=== PATIENT | female | born 1950 | race Caucasian/White ===

== ENCOUNTER 2017-09-24 02:42 | Outpatient (CLI) | payer MEDICARE, MEDICAID | END 2017-09-24 23:59 | disposition home or self-care (01) | LOC: DIABETIC 02:42 | PROVIDERS: ATTEND Internal Medicine | DX: E11.65 Type 2 diabetes mellitus with hyperglycemia (principal); I10 Essential (primary) hypertension | CPT/HCPCS: G0108 ==

== ENCOUNTER 2017-12-31 00:32 | Outpatient (CLI) | payer MEDICARE, MEDICAID | END 2017-12-31 23:59 | disposition home or self-care (01) | LOC: DIABETIC 00:32 | PROVIDERS: ATTEND Internal Medicine | DX: E11.65 Type 2 diabetes mellitus with hyperglycemia (principal); I10 Essential (primary) hypertension | CPT/HCPCS: G0108 ==

== ENCOUNTER 2018-04-11 04:25 | Outpatient (CLI) | payer MEDICARE, MEDICAID | END 2018-04-11 23:59 | disposition home or self-care (01) | LOC: DIABETIC 04:25 | PROVIDERS: ATTEND Internal Medicine | DX: E11.65 Type 2 diabetes mellitus with hyperglycemia (principal); E11.21 Type 2 diabetes mellitus with diabetic nephropathy; E11.40 Type 2 diabetes mellitus with diabetic neuropathy, unspecified; E11.319 Type 2 diabetes mellitus with unspecified diabetic retinopathy without macular edema; E11.43 Type 2 diabetes mellitus with diabetic autonomic (poly)neuropathy; K31.84 Gastroparesis; I10 Essential (primary) hypertension; I67.9 Cerebrovascular disease, unspecified; E78.5 Hyperlipidemia, unspecified; Z79.84 Long term (current) use of oral hypoglycemic drugs | CPT/HCPCS: G0108 ==

== ENCOUNTER 2018-07-16 01:43 | Outpatient (CLI) | payer MEDICARE, MEDICAID | END 2018-07-16 23:59 | disposition home or self-care (01) | LOC: DIABETIC 01:43 | PROVIDERS: ATTEND Internal Medicine | DX: E11.65 Type 2 diabetes mellitus with hyperglycemia (principal); E11.21 Type 2 diabetes mellitus with diabetic nephropathy; E11.40 Type 2 diabetes mellitus with diabetic neuropathy, unspecified; E11.319 Type 2 diabetes mellitus with unspecified diabetic retinopathy without macular edema; E11.43 Type 2 diabetes mellitus with diabetic autonomic (poly)neuropathy; K31.84 Gastroparesis; I10 Essential (primary) hypertension; I67.9 Cerebrovascular disease, unspecified; Z79.84 Long term (current) use of oral hypoglycemic drugs | CPT/HCPCS: G0108 ==

== ENCOUNTER 2018-10-16 03:20 | Outpatient (CLI) | payer MEDICARE, MEDICAID | END 2018-10-16 23:59 | disposition home or self-care (01) | LOC: DIABETIC 03:20 | PROVIDERS: ATTEND Internal Medicine | DX: E11.65 Type 2 diabetes mellitus with hyperglycemia (principal); Z79.84 Long term (current) use of oral hypoglycemic drugs; E11.40 Type 2 diabetes mellitus with diabetic neuropathy, unspecified; E11.21 Type 2 diabetes mellitus with diabetic nephropathy; E11.319 Type 2 diabetes mellitus with unspecified diabetic retinopathy without macular edema; E11.43 Type 2 diabetes mellitus with diabetic autonomic (poly)neuropathy; K31.84 Gastroparesis; I10 Essential (primary) hypertension; E78.5 Hyperlipidemia, unspecified; I67.9 Cerebrovascular disease, unspecified | CPT/HCPCS: G0108 ==

== ENCOUNTER 2018-11-13 08:32 | Emergency (ER) | payer MEDICARE, MEDICAID ==
[~2018-11-13] VITALS: Ht 162.6 cm; Wt 54.5 kg
[2018-11-13 09:27] LABS: BASOPHILS # (AUTO) 0.1 X10'3 (0-0.2); BASOPHILS % (AUTO) 0.7 % (0-1); EOSINOPHILS # (AUTO) 0.6 X10'3 (0-0.9); EOSINOPHILS % (AUTO) 5.1 % (0-6); HEMATOCRIT 33.5 % (35.0-45.0); HEMOGLOBIN 11.2 g/dl (12.0-16.0); LYMPHOCYTES # (AUTO) 1.1 X10'3 (1.1-4.8); LYMPHOCYTES % (AUTO) 10.3 % (21-51); MEAN CORPUSCULAR HEMOGLOBIN 30.1 PG (27.0-31.0); MEAN CORPUSCULAR HGB CONC 33.6 g/dL (33.0-36.5); MEAN CORPUSCULAR VOLUME 89.8 FL (78-98); MEAN PLATELET VOLUME 8.6 FL (7.4-10.4); MONOCYTES # (AUTO) 0.8 X10'3 (0-0.9); MONOCYTES % (AUTO) 6.8 % (2-12); NEUTROPHILS # (AUTO) 8.5 X10'3 (1.8-7.7); NEUTROPHILS % (AUTO) 77.1 % (42-75); PLATELET COUNT 218 X10'3 (140-440); RED BLOOD COUNT 3.73 X10'6 (4.20-5.60); RED CELL DISTRIBUTION WIDTH 13.8 % (11.5-14.5)
[2018-11-13 09:30] LABS: CLARITY,URINE CLEAR (Clear); COLOR,URINE YELLOW (Yellow); GLUCOSE, URINE NEGATIVE (Neg); KETONES,URINE NEGATIVE (Neg); LEUKOCYTE ESTERASE ,URINE NEGATIVE (Neg); NITRITES, URINE NEGATIVE (Neg); OCCULT BLOOD,URINE NEGATIVE (Neg); PROTEIN,URINE 30 mg/dl (Neg); UROBILINOGEN,URINE 0.2 E.U/dL (0.2-1.0)
[2018-11-13 09:31] LABS: UA COLLECTION TYPE STRAIGHT CATH
[2018-11-13 09:41] LABS: ALANINE AMINOTRANSFERASE 42 U/L (12-78); ALBUMIN 3.3 G/DL (3.4-5.0); ALBUMIN/GLOBULIN RATIO 1.1 (1.1-1.5); ALKALINE PHOSPHATASE 64 IU/L (46-116); ANION GAP 8 (8-16); ASPARTATE AMINO TRANSFERASE 42 U/L (10-37); BILIRUBIN,TOTAL 0.4 MG/DL (0.1-1.0); BLOOD UREA NITROGEN 17 MG/DL (7-18); BUN/CREATININE RATIO 10.8 (6.6-38.0); CALCIUM 9.9 MG/DL (8.5-10.1); CHLORIDE 109 MMOL/L (99-107); CREATININE 1.57 MG/DL (0.40-0.90); GLUCOSE 60 MG/DL (70-104); POTASSIUM 3.8 MMOL/L (3.5-5.1); SODIUM 145 MMOL/L (135-145); TOTAL CARBON DIOXIDE 28.3 MMOL/L (24-32); TOTAL PROTEIN 6.4 G/DL (6.4-8.2); eGFR 33 ML/MIN
[2018-11-13 09:42] LABS: BACTERIA,URINE 1+ /HPF (Neg); RBC,URINE 0-2 /HPF (0-2); SQUAMOUS EPITHELIAL CELL,UR FEW /LPF (FEW); WBC,URINE 0-4 /HPF (0-4)
[2018-11-13 10:26] VITALS: BP 122/50
== END 2018-11-13 10:28 | disposition home or self-care (01) ==
LOC: ER 08:34
DX: E11.649 Type 2 diabetes mellitus with hypoglycemia without coma (principal); I49.9 Cardiac arrhythmia, unspecified; I25.10 Atherosclerotic heart disease of native coronary artery without angina pectoris; E78.00 Pure hypercholesterolemia, unspecified; I10 Essential (primary) hypertension; Z95.1 Presence of aortocoronary bypass graft
CPT/HCPCS: 36415; 71045; 80053; 81001; 82948; 83605; 83735; 84145; 85025; 87040; 93005; 99284; P9612

== ENCOUNTER 2019-01-12 02:17 | Outpatient (CLI) | payer MEDICARE, MEDICAID | END 2019-01-12 23:59 | disposition home or self-care (01) | LOC: DIABETIC 02:17 | PROVIDERS: ATTEND Internal Medicine | DX: E11.65 Type 2 diabetes mellitus with hyperglycemia (principal); E11.319 Type 2 diabetes mellitus with unspecified diabetic retinopathy without macular edema; E11.21 Type 2 diabetes mellitus with diabetic nephropathy; E11.40 Type 2 diabetes mellitus with diabetic neuropathy, unspecified; E11.59 Type 2 diabetes mellitus with other circulatory complications; E11.43 Type 2 diabetes mellitus with diabetic autonomic (poly)neuropathy; K31.84 Gastroparesis; I10 Essential (primary) hypertension; E78.5 Hyperlipidemia, unspecified; Z79.899 Other long term (current) drug therapy | CPT/HCPCS: G0108 ==

== ENCOUNTER 2019-04-30 01:34 | Outpatient (CLI) | payer MEDICARE, MEDICAID | END 2019-04-30 23:59 | disposition home or self-care (01) | LOC: DIABETIC 01:34 | PROVIDERS: ATTEND Internal Medicine | DX: E11.40 Type 2 diabetes mellitus with diabetic neuropathy, unspecified (principal); E11.319 Type 2 diabetes mellitus with unspecified diabetic retinopathy without macular edema; E11.65 Type 2 diabetes mellitus with hyperglycemia; E78.5 Hyperlipidemia, unspecified; I10 Essential (primary) hypertension; E11.43 Type 2 diabetes mellitus with diabetic autonomic (poly)neuropathy; K31.84 Gastroparesis; I68.8 Other cerebrovascular disorders in diseases classified elsewhere; Z79.4 Long term (current) use of insulin | CPT/HCPCS: G0108 ==

== ENCOUNTER 2019-08-03 03:41 | Outpatient (CLI) | payer MEDICARE, MEDICAID | END 2019-08-03 23:59 | disposition home or self-care (01) | LOC: DIABETIC 03:41 | PROVIDERS: ATTEND Internal Medicine | DX: E11.65 Type 2 diabetes mellitus with hyperglycemia (principal) | CPT/HCPCS: G0108 ==

== ENCOUNTER 2020-08-24 09:04 | Day surgery (SDC) | payer MEDICARE, MEDICAID ==
[2020-08-23 11:12] LABS: BASOPHILS # (AUTO) 0.1 X10'3 (0-0.2); EOSINOPHILS # (AUTO) 0.3 X10'3 (0-0.9); EOSINOPHILS % (AUTO) 3.8 % (0-6); HEMATOCRIT 39.5 % (35.0-45.0); HEMOGLOBIN 13.1 g/dl (12.0-16.0); LYMPHOCYTES # (AUTO) 0.9 X10'3 (1.1-4.8); LYMPHOCYTES % (AUTO) 14.2 % (21-51); MEAN CORPUSCULAR VOLUME 90.7 FL (78-98); MONOCYTES # (AUTO) 0.5 X10'3 (0-0.9); MONOCYTES % (AUTO) 7.8 % (2-12); NEUTROPHILS # (AUTO) 4.8 X10'3 (1.8-7.7); NEUTROPHILS % (AUTO) 73.2 % (42-75); PLATELET COUNT 233 X10'3 (140-440); RED BLOOD COUNT 4.36 X10'6 (4.20-5.60); RED CELL DISTRIBUTION WIDTH 13.8 % (11.5-14.5); WHITE BLOOD COUNT 6.5 X10'3 (4.5-11.0)
[2020-08-23 11:26] LABS: PARTIAL THROMBOPLASTIN TIME 25 SECONDS (22-32)
[2020-08-23 11:30] LABS: ALBUMIN 3.7 G/DL (3.4-5.0); ANION GAP 9 (8-16); BLOOD UREA NITROGEN 27 MG/DL (7-18); BUN/CREATININE RATIO 17.5 (6.6-38.0); CALCIUM 10.4 MG/DL (8.5-10.1); CHLORIDE 98 MMOL/L (99-107); CREATININE 1.54 MG/DL (0.40-0.90); POTASSIUM 4.8 MMOL/L (3.5-5.1); SODIUM 135 MMOL/L (135-145); TOTAL CARBON DIOXIDE 27.8 MMOL/L (24-32); eGFR 33 ML/MIN
[2020-08-23 11:36] LABS: GLUCOSE 506 MG/DL (70-104)
[2020-08-24] VITALS (11 sets, daily range): BP systolic 128–167; BP diastolic 51–73
[~2020-08-24] VITALS: Ht 142.2 cm; Wt 48.0 kg
[2020-08-24] MEDS ORDERED: normal saline 1000ml 1,000 ML IV SCH ×2 (09:50→12:30)
[2020-08-24] MEDS ORDERED: ceFAZolin 2gm in dextrose, iso 50 ML IV ONE (09:50)
[2020-08-24] MEDS ORDERED: Cefazolin 2GM/100ML NS IVPB 100 ML IV ONE (09:50)
[2020-08-24] MEDS ORDERED: LORazepam 0.5 MG tablet PO ONE (09:55)
[2020-08-24] MEDS ORDERED: diphenhydrAMINE 25mg capsule PO ONE (09:55)
[2020-08-24] MEDS ORDERED: POTA10CA44 PO (10:05)
[2020-08-24] MEDS ORDERED: CARV6.253 PO (10:05)
[2020-08-24] MEDS ORDERED: ASPI-1264 PO (10:05)
[2020-08-24] MEDS ORDERED: CALC-1074 PO (10:05)
[2020-08-24] MEDS ORDERED: FURO-150 PO (10:05)
[2020-08-24] MEDS ORDERED: ATOR40TA PO (10:05)
[2020-08-24] MEDS ORDERED: trulicity SQ (10:05)
[2020-08-24] MEDS ORDERED: BENA10TA74 PO (10:05)
[2020-08-24] MEDS ORDERED: OMEG-166 PO (10:05)
[2020-08-24] MEDS ORDERED: LIDOcaine 1% W/epiNEPHrine 1:100,000 20ml vial ONE (10:58)
[2020-08-24] MEDS ORDERED: ceFAZolin 1000mg inj ONE (10:58)
[2020-08-24] MEDS ORDERED: midazolam 2 mg/2 ml injection ONE (10:58)
[2020-08-24] MEDS ORDERED: fentaNYL/PF 50MCG/1 ML 2ML syringe ONE (10:58)
[2020-08-24] MEDS ORDERED: HYDROcodone/acetaminophen 5mg/325mg tablet PO PRN (12:35)
[2020-08-24] MEDS ORDERED: HYDROcodone/acetaminophen 10/325mg tab PO PRN (12:35)
[2020-08-24] MEDS ORDERED: vancomycin/NS 1 GM ADD-VANTAGE 250 ML X 1 DOSE IV ONE (14:00)
== END 2020-08-24 17:00 | disposition home or self-care (01) ==
LOC: SSTAY O 09:04
PROVIDERS: ATTEND Internal Medicine Cardiovascular Disease
DX: Z45.010 Encounter for checking and testing of cardiac pacemaker pulse generator [battery] (principal); E11.9 Type 2 diabetes mellitus without complications; I10 Essential (primary) hypertension; I25.10 Atherosclerotic heart disease of native coronary artery without angina pectoris; F41.9 Anxiety disorder, unspecified; I08.3 Combined rheumatic disorders of mitral, aortic and tricuspid valves; I27.29 Other secondary pulmonary hypertension; I42.9 Cardiomyopathy, unspecified; E78.49 Other hyperlipidemia; Z79.899 Other long term (current) drug therapy; Z79.01 Long term (current) use of anticoagulants; Z79.82 Long term (current) use of aspirin; Z95.5 Presence of coronary angioplasty implant and graft
CPT/HCPCS: 33228; 36415; 80048; 82948; 85025; 85610; 85730; 93005; 99152; 99153; C1785; J0690; J2250; J3010; J3370; Q0163; A4620; A6258; A6449

== ENCOUNTER 2020-11-01 16:32 | Observation (INO) | payer MEDICARE, MEDICAID ==
[~2020-11-01] VITALS: Ht 142.2 cm; Wt 45.5 kg
[~2020-11-01 16:32] MED LIST: ATOR40TA71 PO; BENA10TA75 PO; CALC-1074 PO; CARV6.253 PO; CLIN-97 PO; DULA1.5P SQ; FURO-150 PO; INSU100I29 SQ; OMEG-166 PO; POTA10TA PO
[2020-11-01] MEDS ORDERED: ondansetron/PF 4mg/2ml inj IV PRN (17:30)
[2020-11-01] MEDS ORDERED: morphine 2 MG/ML inj. syringe IV PRN (17:30)
[2020-11-01] MEDS ORDERED: acetaminophen 325mg tablet PO PRN (17:30)
[2020-11-01] MEDS ORDERED: mag hydrox/Alum hydrox/simeth 30ml oral suspension PO PRN (17:30)
[2020-11-01] MEDS ORDERED: magnesium hydroxide 30ml (MOM) UD suspension PO PRN (17:30)
[2020-11-01] MEDS ORDERED: HYDROcodone/acetaminophen 10/325mg tab PO PRN (17:30)
[2020-11-01] MEDS ORDERED: HYDROcodone/acetaminophen 5mg/325mg tablet PO PRN (17:30)
[2020-11-01] MEDS ORDERED: CLIN300C71 PO (17:37)
[2020-11-01] MEDS ORDERED: ASPI-1094 PO (17:51)
[2020-11-01] MEDS ORDERED: dextrose ORAL solution 15 GM/59 ML bottle PO PRN (19:35)
[2020-11-01] MEDS ORDERED: MESSAGE TO PHARMACY PO ONE (19:35)
[2020-11-01 20:00] VITALS: BP 155/57
[2020-11-01] MEDS ORDERED: atorvastatin 20mg tablet PO SCH (21:00)
[2020-11-01] MEDS ORDERED: aspirin 325mg tablet, delayed-release (Ecotrin) PO SCH (21:00)
[2020-11-01] MEDS: OMEGA-3/DHA/EPA/FISH OIL 1 EACH CAPSULE.DR PO SCH (21:03)
[2020-11-01 22:00] VITALS: BP 133/74
[2020-11-01] MEDS: clindamycin 150mg capsule PO SCH (22:38)
[2020-11-02 02:00] VITALS: BP 156/59
[2020-11-02] MEDS: clindamycin 150mg capsule PO SCH ×3 (03:58→13:27)
--- NOTE | 2020-11-02 06:08 | NUR ---
Problems reprioritized. Patient report given, questions answered & plan of care reviewed with LISA Guerrero.
[2020-11-02 07:00] VITALS: BP 144/55
[2020-11-02] MEDS ORDERED: carvedilol 6.25mg tablet PO SCH (07:30)
[2020-11-02] MEDS: OMEGA-3/DHA/EPA/FISH OIL 1 EACH CAPSULE.DR PO SCH (07:39)
[2020-11-02] MEDS ORDERED: insulin glargine (Lantus) pen - multi-dose SQ SCH (08:00)
[2020-11-02] MEDS ORDERED: lisinopril 10 MG tablet PO SCH (08:00)
[2020-11-02] MEDS ORDERED: furosemide 20MG tablet PO SCH (08:00)
[2020-11-02] MEDS ORDERED: calcium carbonate/vitamin D3 tablet PO SCH (08:00)
[2020-11-02] MEDS ORDERED: enoxaparin 40mg/0.4ml syringe SUBCUT SCH (08:00)
[2020-11-02] MEDS ORDERED: potassium chloride 10mEq ER tablet PO SCH (08:00)
[2020-11-02 08:58] LABS: ANION GAP 10 (8-16); BLOOD UREA NITROGEN 13 MG/DL (7-18); BUN/CREATININE RATIO 15.5 (6.6-38.0); CALCIUM 8.9 MG/DL (8.5-10.1); CHLORIDE 107 MMOL/L (99-107); CREATININE 0.84 MG/DL (0.40-0.90); GLUCOSE 215 MG/DL (70-104); POTASSIUM 3.6 MMOL/L (3.5-5.1); SODIUM 141 MMOL/L (135-145); TOTAL CARBON DIOXIDE 23.8 MMOL/L (24-32); eGFR 67 ML/MIN
[2020-11-02 09:12] LABS: BASOPHILS % (AUTO) 0.7 % (0-1); EOSINOPHILS # (AUTO) 0.6 X10'3 (0-0.9); EOSINOPHILS % (AUTO) 7.9 % (0-6); HEMATOCRIT 40.7 % (35.0-45.0); HEMOGLOBIN 13.8 g/dl (12.0-16.0); LYMPHOCYTES # (AUTO) 1.2 X10'3 (1.1-4.8); LYMPHOCYTES % (AUTO) 16.7 % (21-51); MEAN CORPUSCULAR HEMOGLOBIN 30.6 PG (27.0-31.0); MEAN CORPUSCULAR HGB CONC 33.8 g/dL (33.0-36.5); MEAN CORPUSCULAR VOLUME 90.5 FL (78-98); MEAN PLATELET VOLUME 8.9 FL (7.4-10.4); MONOCYTES # (AUTO) 0.7 X10'3 (0-0.9); MONOCYTES % (AUTO) 9.4 % (2-12); NEUTROPHILS # (AUTO) 4.6 X10'3 (1.8-7.7); NEUTROPHILS % (AUTO) 65.3 % (42-75); PLATELET COUNT 193 X10'3 (140-440); RED BLOOD COUNT 4.49 X10'6 (4.20-5.60); RED CELL DISTRIBUTION WIDTH 14.4 % (11.5-14.5); WHITE BLOOD COUNT 7.1 X10'3 (4.5-11.0)
[2020-11-02 11:00] VITALS: BP 108/68
--- NOTE | 2020-11-02 16:16 | NUR ---
Patient is stable for discharge to nursing skilled facility per MD orders. All discharge instructions reviewed with patient and all questions answered. RN called to give report to Nurse Seymour at [facility] ([phone]). PIV discontinued, cannula intact. mechanical shop laborer discontinued. Belongings collected and sent with patient. Transferred by renae through the ambulance. Patient left the hospital at 1610.
[2020-11-02] MEDS ORDERED: lactobacillus rhamnosus 10,000 MMU CELLS/CAPSULE PO SCH (20:00)
== END 2020-11-02 16:12 ==
LOC: ER 16:33 → ED HOLD 17:28 → PCU 3S 20:00
PROVIDERS: ADMIT Family Medicine; ATTEND Family Medicine
DX: E10.10 Type 1 diabetes mellitus with ketoacidosis without coma (principal); E10.52 Type 1 diabetes mellitus with diabetic peripheral angiopathy with gangrene; I10 Essential (primary) hypertension; E78.5 Hyperlipidemia, unspecified; I25.10 Atherosclerotic heart disease of native coronary artery without angina pectoris; E78.00 Pure hypercholesterolemia, unspecified; Z89.421 Acquired absence of other right toe(s); Z95.1 Presence of aortocoronary bypass graft; Z95.0 Presence of cardiac pacemaker; Z96.41 Presence of insulin pump (external) (internal); Z79.899 Other long term (current) drug therapy; W18.39XA Other fall on same level, initial encounter; Y93.89 Activity, other specified; Y92.009 Unspecified place in unspecified non-institutional (private) residence as the place of occurrence of the external cause
CPT/HCPCS: 36415; 80048; 82948; 85025; 96372; 97116; 97161; 97530; 99284; G0378; 87081; 96374; J1650; J1815

== ENCOUNTER 2021-01-11 17:46 | Emergency (ER) | payer MEDICARE, MEDICAID ==
[~2021-01-11] VITALS: Ht 144.8 cm; Wt 38.6 kg
[~2021-01-11 17:46] MED LIST changes: +ASPI-1094 PO; -CALC-1074 PO; +CEFD300C3 PO; -CLIN-97 PO; +LACT1CAP26 PO
[2021-01-11] MEDS ORDERED: normal saline 1000ML IV soln IVB ONE (18:40)
[2021-01-11] MEDS ORDERED: ondansetron/PF 4mg/2ml inj IV ONE (18:40)
[2021-01-11 19:31] LABS: BASOPHILS # (AUTO) 0.1 X10'3 (0-0.2); BASOPHILS % (AUTO) 0.6 % (0-1); EOSINOPHILS # (AUTO) 0.2 X10'3 (0-0.9); EOSINOPHILS % (AUTO) 2.2 % (0-6); HEMATOCRIT 33.7 % (35.0-45.0); HEMOGLOBIN 11.4 g/dl (12.0-16.0); LYMPHOCYTES # (AUTO) 1.6 X10'3 (1.1-4.8); LYMPHOCYTES % (AUTO) 15.2 % (21-51); MEAN CORPUSCULAR HEMOGLOBIN 31.4 PG (27.0-31.0); MEAN CORPUSCULAR HGB CONC 33.7 g/dL (33.0-36.5); MEAN PLATELET VOLUME 8.5 FL (7.4-10.4); MONOCYTES # (AUTO) 0.7 X10'3 (0-0.9); MONOCYTES % (AUTO) 6.7 % (2-12); NEUTROPHILS # (AUTO) 7.9 X10'3 (1.8-7.7); NEUTROPHILS % (AUTO) 75.3 % (42-75); PLATELET COUNT 332 X10'3 (140-440); RED BLOOD COUNT 3.62 X10'6 (4.20-5.60); RED CELL DISTRIBUTION WIDTH 14.6 % (11.5-14.5); WHITE BLOOD COUNT 10.5 X10'3 (4.5-11.0)
[2021-01-11 19:46] LABS: ALANINE AMINOTRANSFERASE 8 U/L (12-78); ALBUMIN/GLOBULIN RATIO 0.8 (1.1-1.5); ALKALINE PHOSPHATASE 131 IU/L (46-116); ANION GAP 7 (8-16); ASPARTATE AMINO TRANSFERASE 7 U/L (10-37); BILIRUBIN,TOTAL 0.8 MG/DL (0.1-1.0); BLOOD UREA NITROGEN 66 MG/DL (7-18); BUN/CREATININE RATIO 27.8 (6.6-38.0); CALCIUM 10.5 MG/DL (8.5-10.1); CHLORIDE 103 MMOL/L (99-107); CREATININE 2.37 MG/DL (0.40-0.90); GLUCOSE 180 MG/DL (70-104); POTASSIUM 4.2 MMOL/L (3.5-5.1); SODIUM 140 MMOL/L (135-145); eGFR 20 ML/MIN
--- NOTE | 2021-01-11 20:07 | NUR ---
attempt bedpan for U/A, patient unable at this time. RN made aware.
[2021-01-11 21:57] LABS: URINE AMPHETAMINE SCREEN NEGATIVE (Neg); URINE BARBITUATE SCREEN NEGATIVE (Neg); URINE BENZODIAZEPINES SCREEN NEGATIVE (Neg); URINE CANNABINOID SCREEN NEGATIVE (Neg); URINE COCAINE SCREEN NEGATIVE (Neg); URINE METHADONE SCREEN NEGATIVE (Neg); URINE OPIATE SCREEN NEGATIVE (Neg); URINE PHENCYCLIDINE SCREEN NEGATIVE (Neg)
[2021-01-11 21:59] LABS: CLARITY,URINE CLEAR (Clear); COLOR,URINE YELLOW (Yellow); GLUCOSE, URINE NEGATIVE (Neg); KETONES,URINE NEGATIVE (Neg); LEUKOCYTE ESTERASE ,URINE NEGATIVE (Neg); NITRITES, URINE NEGATIVE (Neg); OCCULT BLOOD,URINE NEGATIVE (Neg); PH,URINE 5.5 (4.8-8.0); PROTEIN,URINE NEGATIVE (Neg); UA COLLECTION TYPE STRAIGHT CATH; UROBILINOGEN,URINE 0.2 E.U/dL (0.2-1.0)
[2021-01-11] MEDS ORDERED: ONDA4TAB6 PO (22:11)
[2021-01-11] MEDS ORDERED: CEFD300C3 PO (22:36)
[2021-01-11 22:53] VITALS: BP 134/57
== END 2021-01-11 22:53 | disposition home or self-care (01) ==
LOC: ER 17:46
DX: I12.9 Hypertensive chronic kidney disease with stage 1 through stage 4 chronic kidney disease, or unspecified chronic kidney disease (principal); E11.22 Type 2 diabetes mellitus with diabetic chronic kidney disease; N18.9 Chronic kidney disease, unspecified; K29.70 Gastritis, unspecified, without bleeding; R11.2 Nausea with vomiting, unspecified; I25.10 Atherosclerotic heart disease of native coronary artery without angina pectoris; E78.00 Pure hypercholesterolemia, unspecified; Z98.890 Other specified postprocedural states; Z79.82 Long term (current) use of aspirin; Z79.4 Long term (current) use of insulin; Z79.2 Long term (current) use of antibiotics; Z79.899 Other long term (current) drug therapy
CPT/HCPCS: 36415; 71045; 80053; 80305; 81003; 84484; 85025; 93005; 96374; 99285; J2405; J7030

== ENCOUNTER 2021-01-16 12:24 | Inpatient (IN) | payer MEDICARE, MEDICAID ==
[~2021-01-16] VITALS: Ht 134.6 cm; Wt 38.6 kg
[~2021-01-16 12:24] MED LIST changes: +ONDA4TAB6 PO
[2021-01-16] MEDS ORDERED: normal saline 1000ML IV soln IV ONE (15:00)
--- NOTE | 2021-01-16 16:00 | NUR ---
LABS TRYING TO GET BLOOD FROM PT.
[2021-01-16 16:43] LABS: BASOPHILS # (AUTO) 0.1 X10'3 (0-0.2); BASOPHILS % (AUTO) 0.5 % (0-1); EOSINOPHILS # (AUTO) 0.4 X10'3 (0-0.9); EOSINOPHILS % (AUTO) 3.6 % (0-6); HEMATOCRIT 32.7 % (35.0-45.0); HEMOGLOBIN 11.1 g/dl (12.0-16.0); LYMPHOCYTES # (AUTO) 1.6 X10'3 (1.1-4.8); LYMPHOCYTES % (AUTO) 15.1 % (21-51); MEAN CORPUSCULAR HEMOGLOBIN 31.7 PG (27.0-31.0); MEAN CORPUSCULAR HGB CONC 33.8 g/dL (33.0-36.5); MEAN CORPUSCULAR VOLUME 93.9 FL (78-98); MEAN PLATELET VOLUME 8.3 FL (7.4-10.4); MONOCYTES # (AUTO) 0.8 X10'3 (0-0.9); MONOCYTES % (AUTO) 7.4 % (2-12); NEUTROPHILS % (AUTO) 73.4 % (42-75); PLATELET COUNT 281 X10'3 (140-440); RED BLOOD COUNT 3.48 X10'6 (4.20-5.60); RED CELL DISTRIBUTION WIDTH 14.7 % (11.5-14.5); WHITE BLOOD COUNT 10.9 X10'3 (4.5-11.0)
[2021-01-16 17:11] LABS: ALANINE AMINOTRANSFERASE 8 U/L (12-78); ALBUMIN 2.8 G/DL (3.4-5.0); ALBUMIN/GLOBULIN RATIO 0.7 (1.1-1.5); ALKALINE PHOSPHATASE 125 IU/L (46-116); ANION GAP 9 (8-16); ASPARTATE AMINO TRANSFERASE 8 U/L (10-37); BILIRUBIN,TOTAL 0.5 MG/DL (0.1-1.0); BLOOD UREA NITROGEN 40 MG/DL (7-18); BUN/CREATININE RATIO 26.1 (6.6-38.0); CHLORIDE 105 MMOL/L (99-107); CREATININE 1.53 MG/DL (0.40-0.90); GLUCOSE 205 MG/DL (70-104); MAGNESIUM 2.3 MG/DL (1.5-2.4); POTASSIUM 4.4 MMOL/L (3.5-5.1); SODIUM 140 MMOL/L (135-145); TOTAL CARBON DIOXIDE 25.6 MMOL/L (24-32); TOTAL PROTEIN 6.7 G/DL (6.4-8.2); eGFR 34 ML/MIN
--- NOTE | 2021-01-16 17:21 | NUR ---
NOTIFIED LEONIE GUIDRY THAT FAMILY MEMBER WANTS TO TALK TO THE PT.
[2021-01-16] MEDS ORDERED: CefTRIAXone 2gm/D5W 50ml BAG 50 ML IV ONE (17:30)
[2021-01-16] MEDS ORDERED: vancomycin/NS 1 GM ADD-VANTAGE 250 ML IV ONE (17:30)
[2021-01-16] MEDS ORDERED: ONDA-103 PO (17:51)
[2021-01-16] MEDS ORDERED: CEFD300C17 PO (17:51)
--- NOTE | 2021-01-16 17:54 | NUR ---
miranda [phone] ,[phone] phone no for sister in law call for amny ques or concern.
[2021-01-16 18:19] LABS: CLARITY,URINE CLOUDY (Clear); COLOR,URINE YELLOW (Yellow); GLUCOSE, URINE 250 mg/dl (Neg); KETONES,URINE NEGATIVE (Neg); LEUKOCYTE ESTERASE ,URINE LARGE (Neg); NITRITES, URINE NEGATIVE (Neg); OCCULT BLOOD,URINE SMALL (Neg); PH,URINE 5.5 (4.8-8.0); PROTEIN,URINE NEGATIVE (Neg); UROBILINOGEN,URINE 0.2 E.U/dL (0.2-1.0)
[2021-01-16 18:34] LABS: UA COLLECTION TYPE VOIDED
[2021-01-16 18:35] LABS: SQUAMOUS EPITHELIAL CELL,UR FEW /LPF (FEW); YEAST MANY /HPF (NEGATIVE)
[2021-01-16 18:37] LABS: BACTERIA,URINE FEW /HPF (Neg); WBC,URINE 50-100 /HPF (0-4)
[2021-01-16 18:38] LABS: RBC,URINE 0-2 /HPF (0-2); WBC CLUMPS,URINE MANY /HPF (NEGATIVE)
[2021-01-16] MEDS ORDERED: ondansetron 4mg rapidly disintigrating tab PO PRN (19:55)
[2021-01-16] MEDS ORDERED: dextrose ORAL solution 15 GM/59 ML bottle PO PRN ×2 (20:00)
[2021-01-16] MEDS ORDERED: enoxaparin 40mg/0.4ml syringe SQ SCH (20:00)
[2021-01-16] MEDS ORDERED: dextrose 50%-water 50ml dispensing syringe IV PRN ×2 (20:00)
[2021-01-16] MEDS ORDERED: magnesium 2GM in 50ml NS 50 ML IV PRN (20:00)
[2021-01-16] MEDS ORDERED: acetaminophen 325mg tablet PO PRN ×2 (20:00)
[2021-01-16] MEDS ORDERED: mag hydrox/Alum hydrox/simeth 30ml oral suspension PO PRN (20:00)
[2021-01-16] MEDS ORDERED: potassium Cl 20 mEq SR tablet PO PRN ×2 (20:00)
[2021-01-16] MEDS ORDERED: potassium Cl 40MEQ/1/2NS 520ml 520 ML IV PRN ×2 (20:00)
[2021-01-16] MEDS: OMEGA-3/DHA/EPA/FISH OIL 1 EACH CAPSULE.DR PO SCH (20:00)
[2021-01-16] MEDS ORDERED: MESSAGE TO PHARMACY PO ONE (20:00)
[2021-01-16] MEDS: K and/or MAG REPLACEMENT MC SCH (20:00)
[2021-01-16] MEDS ORDERED: ondansetron/PF 4mg/2ml inj IV PRN (20:00)
[2021-01-16] MEDS ORDERED: magnesium 4gm in 100ml NS 100 ML IV PRN (20:00)
[2021-01-16] MEDS ORDERED: glucagon, human recombinant 1mg kit SUBCUT PRN (20:00)
[2021-01-16] MEDS: insulin glargine (Lantus) pen - multi-dose SQ SCH (21:00)
[2021-01-16] MEDS: aspirin 325mg tablet, delayed-release (Ecotrin) PO SCH (21:48)
[2021-01-16] MEDS: docusate sod 100mg capsule PO SCH (21:49)
[2021-01-16] MEDS: normal saline 1000ml 1,000 ML IV SCH (21:49)
[2021-01-16] MEDS: atorvastatin 20mg tablet PO SCH (21:49)
[2021-01-17 02:26] LABS: ALBUMIN 2.5 G/DL (3.4-5.0); ALBUMIN/GLOBULIN RATIO 0.8 (1.1-1.5); ALKALINE PHOSPHATASE 102 IU/L (46-116); ANION GAP 12 (8-16); ASPARTATE AMINO TRANSFERASE 17 U/L (10-37); BASOPHILS % (AUTO) 0.5 % (0-1); BILIRUBIN,TOTAL 0.3 MG/DL (0.1-1.0); BLOOD UREA NITROGEN 28 MG/DL (7-18); BUN/CREATININE RATIO 21.9 (6.6-38.0); CHLORIDE 108 MMOL/L (99-107); CREATININE 1.28 MG/DL (0.40-0.90); EOSINOPHILS # (AUTO) 0.4 X10'3 (0-0.9); EOSINOPHILS % (AUTO) 3.7 % (0-6); GLUCOSE 137 MG/DL (70-104); HEMATOCRIT 30.6 % (35.0-45.0); HEMOGLOBIN 10.3 g/dl (12.0-16.0); LYMPHOCYTES # (AUTO) 1.8 X10'3 (1.1-4.8); LYMPHOCYTES % (AUTO) 18.4 % (21-51); MAGNESIUM 1.6 MG/DL (1.5-2.4); MEAN CORPUSCULAR HEMOGLOBIN 32.1 PG (27.0-31.0); MEAN CORPUSCULAR HGB CONC 33.8 g/dL (33.0-36.5); MEAN CORPUSCULAR VOLUME 95.1 FL (78-98); MEAN PLATELET VOLUME 8.5 FL (7.4-10.4); MONOCYTES # (AUTO) 0.8 X10'3 (0-0.9); MONOCYTES % (AUTO) 8.1 % (2-12); NEUTROPHILS # (AUTO) 6.6 X10'3 (1.8-7.7); NEUTROPHILS % (AUTO) 69.3 % (42-75); PLATELET COUNT 225 X10'3 (140-440); RED BLOOD COUNT 3.21 X10'6 (4.20-5.60); RED CELL DISTRIBUTION WIDTH 14.6 % (11.5-14.5); SODIUM 142 MMOL/L (135-145); TOTAL CARBON DIOXIDE 21.7 MMOL/L (24-32); TOTAL PROTEIN 5.7 G/DL (6.4-8.2); WHITE BLOOD COUNT 9.5 X10'3 (4.5-11.0); eGFR 41 ML/MIN
[2021-01-17 02:28] LABS: ALANINE AMINOTRANSFERASE 9 U/L (12-78)
[2021-01-17] MEDS: HYDROcodone/acetaminophen 10/325mg tab PO PRN ×2 (05:09→20:07)
[2021-01-17] MEDS: carvedilol 6.25mg tablet PO SCH ×2 (07:30→17:06)
[2021-01-17] MEDS: K and/or MAG REPLACEMENT MC SCH ×2 (08:00→20:00)
[2021-01-17 08:16] VITALS: BP 142/49
[2021-01-17] MEDS: OMEGA-3/DHA/EPA/FISH OIL 1 EACH CAPSULE.DR PO SCH ×2 (08:48→20:06)
[2021-01-17] MEDS: docusate sod 100mg capsule PO SCH ×2 (08:49→20:06)
[2021-01-17] MEDS: lisinopril 10 MG tablet PO SCH (08:49)
[2021-01-17] MEDS: normal saline 1000ml 1,000 ML IV SCH ×2 (08:49→20:15)
--- NOTE | 2021-01-17 09:08 | NUR ---
PAGER ID: [phone] MESSAGE: [phone], Galvez received from ER with possible osteo, unable to doppler dorsalis pedis but can doppler posterior tibial. Don't know if you want a venous study. charlotte [phone]
[2021-01-17] MEDS ORDERED: ipratropium/albuterol 3ml nebule NEB PRN (09:25)
[2021-01-17] MEDS ORDERED: PERFLUTREN PROTEIN-A MICROSPHR (Optison) 0.22 MG/ML 3ML VIAL IV ONE (09:25)
[2021-01-17] MEDS: CefTRIAXone 2gm/D5W 50ml BAG 50 ML IV SCH (09:31)
[2021-01-17 11:43] VITALS: BP 114/61
--- NOTE | 2021-01-17 13:26 | NUR ---
DM Consult: Pt A1C 9.8 12/16 recent admit and was seen by JOSE for DM ed at that time. Addendum: 01/17/21 at [address] Amended: Links added.
[2021-01-17] MEDS: insulin Lispro (HumaLOG) vial - multi-dose SQ SCH ×2 (13:58→20:10)
[2021-01-17 18:00] VITALS: BP 132/49
[2021-01-17] MEDS ORDERED: dextrose 50%-water 50ml dispensing syringe IV PRN ×2 (18:15)
[2021-01-17] MEDS ORDERED: insulin Lispro (HumaLOG) vial - multi-dose SQ SCH (18:15)
[2021-01-17] MEDS ORDERED: dextrose ORAL solution 15 GM/59 ML bottle PO PRN ×2 (18:15)
[2021-01-17] MEDS ORDERED: MESSAGE TO PHARMACY PO ONE (18:15)
[2021-01-17] MEDS ORDERED: glucagon, human recombinant 1mg kit SUBCUT PRN (18:15)
--- NOTE | 2021-01-17 18:21 | NUR ---
Problems reprioritized. Patient report given, questions answered & plan of care reviewed with Natasha GONZALEZ.
--- NOTE | 2021-01-17 18:45 | NUR ---
Patient in room ORTHO 4014. I have received report from Zeynep GONZALEZ and had the opportunity to ask questions and assume patient care.
[2021-01-17] MEDS ORDERED: enoxaparin 30mg/0.3ml syringe SUBCUT SCH (20:00)
[2021-01-17] MEDS: lactobacillus rhamnosus 10,000 MMU CELLS/CAPSULE PO SCH (20:06)
[2021-01-17] MEDS: aspirin 325mg tablet, delayed-release (Ecotrin) PO SCH (20:06)
[2021-01-17] MEDS: atorvastatin 20mg tablet PO SCH (20:06)
[2021-01-17] MEDS: VANCOMYCIN 750MG IV in NS 250 ML IV SCH (20:07)
[2021-01-17] MEDS ORDERED: insulin glargine (Lantus) pen - multi-dose SQ SCH (21:00)
[2021-01-17 22:00] VITALS: BP 107/46
[2021-01-17] MEDS: insulin glargine (Lantus) pen - multi-dose SQ SCH (23:20)
--- NOTE | 2021-01-18 06:24 | NUR ---
Problems reprioritized. Patient report given, questions answered & plan of care reviewed with Zeynep GONZALEZ.
[2021-01-18 06:31] VITALS: BP 112/40
--- NOTE | 2021-01-18 06:52 | NUR ---
Patient in room ORTHO 4014. I have received report from RHINA GONZALEZ and had the opportunity to ask questions and assume patient care.
[2021-01-18] MEDS: docusate sod 100mg capsule PO SCH ×2 (07:26→19:32)
[2021-01-18] MEDS: lisinopril 10 MG tablet PO SCH (07:26)
[2021-01-18] MEDS: lactobacillus rhamnosus 10,000 MMU CELLS/CAPSULE PO SCH ×2 (07:26→19:31)
[2021-01-18] MEDS: OMEGA-3/DHA/EPA/FISH OIL 1 EACH CAPSULE.DR PO SCH ×2 (07:26→19:31)
[2021-01-18] MEDS: carvedilol 6.25mg tablet PO SCH ×2 (07:26→17:50)
[2021-01-18] MEDS: CefTRIAXone 2gm/D5W 50ml BAG 50 ML IV SCH (07:27)
[2021-01-18] MEDS: K and/or MAG REPLACEMENT MC SCH ×2 (08:00→19:28)
[2021-01-18 08:37] LABS: ALANINE AMINOTRANSFERASE 10 U/L (12-78); ALBUMIN 2.3 G/DL (3.4-5.0); ALBUMIN/GLOBULIN RATIO 0.7 (1.1-1.5); ALKALINE PHOSPHATASE 109 IU/L (46-116); ANION GAP 11 (8-16); ASPARTATE AMINO TRANSFERASE 16 U/L (10-37); BILIRUBIN,TOTAL 0.2 MG/DL (0.1-1.0); BLOOD UREA NITROGEN 19 MG/DL (7-18); BUN/CREATININE RATIO 17.9 (6.6-38.0); CALCIUM 8.7 MG/DL (8.5-10.1); CHLORIDE 109 MMOL/L (99-107); CHOLESTEROL 135 MG/DL (0-200); CREATININE 1.06 MG/DL (0.40-0.90); GLUCOSE 221 MG/DL (70-104); HDL CHOLESTEROL 27 MG/DL (35-60); LDL CHOLESTEROL 83 MG/DL (50-100); MAGNESIUM 1.9 MG/DL (1.5-2.4); SODIUM 142 MMOL/L (135-145); TOTAL CARBON DIOXIDE 22.1 MMOL/L (24-32); TOTAL PROTEIN 5.7 G/DL (6.4-8.2); TRIGLYCERIDES 134 MG/DL (20-135); eGFR 51 ML/MIN
[2021-01-18 08:40] LABS: POTASSIUM 4.6 MMOL/L (3.5-5.1)
[2021-01-18] MEDS: insulin Lispro (HumaLOG) vial - multi-dose SQ SCH ×4 (08:44→21:35)
[2021-01-18 09:16] LABS: BASOPHILS % (AUTO) 0.3 % (0-1); EOSINOPHILS # (AUTO) 0.2 X10'3 (0-0.9); EOSINOPHILS % (AUTO) 2.3 % (0-6); HEMATOCRIT 31.5 % (35.0-45.0); HEMOGLOBIN 10.4 g/dl (12.0-16.0); LYMPHOCYTES # (AUTO) 0.9 X10'3 (1.1-4.8); LYMPHOCYTES % (AUTO) 10.8 % (21-51); MEAN CORPUSCULAR HEMOGLOBIN 31.7 PG (27.0-31.0); MEAN CORPUSCULAR HGB CONC 33.1 g/dL (33.0-36.5); MEAN CORPUSCULAR VOLUME 95.6 FL (78-98); MEAN PLATELET VOLUME 8.5 FL (7.4-10.4); MONOCYTES # (AUTO) 0.4 X10'3 (0-0.9); MONOCYTES % (AUTO) 5.2 % (2-12); NEUTROPHILS # (AUTO) 6.5 X10'3 (1.8-7.7); NEUTROPHILS % (AUTO) 81.4 % (42-75); PLATELET COUNT 236 X10'3 (140-440); RED BLOOD COUNT 3.29 X10'6 (4.20-5.60); RED CELL DISTRIBUTION WIDTH 14.6 % (11.5-14.5)
[2021-01-18] MEDS: normal saline 1000ml 1,000 ML IV SCH ×2 (09:30→22:00)
--- NOTE | 2021-01-18 09:30 | NUR ---
DM Consult: Addressed; see prior RD note. Addendum: 01/18/21 at [address] Amended: Links added.
[2021-01-18 09:57] VITALS: BP 141/69
[2021-01-18] MEDS: HYDROcodone/acetaminophen 10/325mg tab PO PRN ×2 (10:55→19:32)
[2021-01-18] MEDS ORDERED: iohexol 350 MG/ML 50ML vial IV ONE (15:27)
[2021-01-18] MEDS ORDERED: iohexol 300mg/ml 100ml inj. ONE (15:27)
--- NOTE | 2021-01-18 16:37 | NUR ---
Page Sent PAGER ID: [phone] MESSAGE: [phone] GLENNA FAIR CTA CAME LORI AND SHOWED A SIGNIFICANT STENOSIS BILATERALLY OF THE SFA AND POPITEAL ARTERIES. FAUSTINO [phone]
[2021-01-18 18:00] VITALS: BP 137/48
--- NOTE | 2021-01-18 18:30 | NUR ---
Problems reprioritized. Patient report given, questions answered & plan of care reviewed with RHINA GONZALEZ.
--- NOTE | 2021-01-18 18:30 | NUR ---
Patient in room ORTHO 4014. I have received report from Abraham GONZALEZ and had the opportunity to ask questions and assume patient care.
[2021-01-18] MEDS: aspirin 325mg tablet, delayed-release (Ecotrin) PO SCH (19:32)
[2021-01-18] MEDS: atorvastatin 20mg tablet PO SCH (19:32)
[2021-01-18] MEDS: VANCOMYCIN 750MG IV in NS 250 ML IV SCH (19:32)
[2021-01-18] MEDS: insulin glargine (Lantus) pen - multi-dose SQ SCH (21:34)
[2021-01-18 22:00] VITALS: BP 102/38
[2021-01-19] MEDS: normal saline 1000ml 1,000 ML IV SCH ×3 (03:35→23:05)
[2021-01-19] MEDS: HYDROcodone/acetaminophen 10/325mg tab PO PRN ×3 (05:52→19:48)
[2021-01-19 06:00] VITALS: BP 110/35
--- NOTE | 2021-01-19 06:32 | NUR ---
Problems reprioritized. Patient report given, questions answered & plan of care reviewed with Nataliya GONZALEZ.
[2021-01-19 06:47] LABS: EOSINOPHILS # (AUTO) 0.4 X10'3 (0-0.9); HEMOGLOBIN 9.4 g/dl (12.0-16.0); MONOCYTES # (AUTO) 0.5 X10'3 (0-0.9); WHITE BLOOD COUNT 7.8 X10'3 (4.5-11.0)
[2021-01-19 06:49] LABS: BASOPHILS % (AUTO) 0.3 % (0-1); EOSINOPHILS % (AUTO) 5.7 % (0-6); LYMPHOCYTES % (AUTO) 12.3 % (21-51); MEAN CORPUSCULAR HEMOGLOBIN 31.1 PG (27.0-31.0); MEAN CORPUSCULAR HGB CONC 33.5 g/dL (33.0-36.5); MEAN CORPUSCULAR VOLUME 92.6 FL (78-98); MEAN PLATELET VOLUME 8.5 FL (7.4-10.4); NEUTROPHILS # (AUTO) 5.9 X10'3 (1.8-7.7); NEUTROPHILS % (AUTO) 75.7 % (42-75); PLATELET COUNT 231 X10'3 (140-440); RED BLOOD COUNT 3.02 X10'6 (4.20-5.60); RED CELL DISTRIBUTION WIDTH 14.4 % (11.5-14.5)
[2021-01-19 07:13] LABS: ALANINE AMINOTRANSFERASE 39 U/L (12-78); ALBUMIN 2.1 G/DL (3.4-5.0); ALBUMIN/GLOBULIN RATIO 0.7 (1.1-1.5); ALKALINE PHOSPHATASE 283 IU/L (46-116); ANION GAP 10 (8-16); ASPARTATE AMINO TRANSFERASE 39 U/L (10-37); BILIRUBIN,TOTAL 0.2 MG/DL (0.1-1.0); BLOOD UREA NITROGEN 14 MG/DL (7-18); BUN/CREATININE RATIO 14.1 (6.6-38.0); CALCIUM 8.6 MG/DL (8.5-10.1); CHLORIDE 108 MMOL/L (99-107); CREATININE 0.99 MG/DL (0.40-0.90); GLUCOSE 158 MG/DL (70-104); MAGNESIUM 1.6 MG/DL (1.5-2.4); SODIUM 141 MMOL/L (135-145); TOTAL PROTEIN 5.2 G/DL (6.4-8.2); eGFR 56 ML/MIN
[2021-01-19] MEDS: K and/or MAG REPLACEMENT MC SCH ×2 (08:00→20:00)
[2021-01-19] MEDS: lactobacillus rhamnosus 10,000 MMU CELLS/CAPSULE PO SCH ×2 (08:07→19:48)
[2021-01-19] MEDS: OMEGA-3/DHA/EPA/FISH OIL 1 EACH CAPSULE.DR PO SCH ×2 (08:07→19:49)
[2021-01-19] MEDS: docusate sod 100mg capsule PO SCH ×2 (08:07→19:48)
[2021-01-19] MEDS: lisinopril 10 MG tablet PO SCH (08:07)
[2021-01-19] MEDS: CefTRIAXone 2gm/D5W 50ml BAG 50 ML IV SCH (08:07)
[2021-01-19] MEDS: carvedilol 6.25mg tablet PO SCH ×2 (08:07→17:38)
[2021-01-19] MEDS: insulin Lispro (HumaLOG) vial - multi-dose SQ SCH ×2 (09:25→18:57)
[2021-01-19 10:00] VITALS: BP 133/45
[2021-01-19] MEDS ORDERED: midazolam 1 mg/ML 2ml injection ONE ×2 (11:35→13:12)
[2021-01-19] MEDS ORDERED: heparin 1,000 UNITS/NS 500ml 500 ML ONE (11:35)
[2021-01-19] MEDS ORDERED: fentaNYL/PF 50MCG/1 ML 2ML syringe ONE ×2 (11:35→13:12)
[2021-01-19] MEDS ORDERED: LIDOcaine 1%/PF 5ML 10 MG/ML VIAL ONE (11:35)
[2021-01-19] MEDS ORDERED: iohexol 300mg/ml 100ml inj. ONE (11:36)
[2021-01-19] MEDS ORDERED: heparin 1,000unit/ml 10ml vial 10 ML ONE (12:31)
--- NOTE | 2021-01-19 18:11 | NUR ---
Patient in room ORTHO 4014. I have received report from Isac GONZALEZ and had the opportunity to ask questions and assume patient care.
[2021-01-19 18:34] VITALS: BP 141/60
[2021-01-19] MEDS: VANCOMYCIN 750MG IV in NS 250 ML IV SCH (19:48)
[2021-01-19] MEDS: aspirin 325mg tablet, delayed-release (Ecotrin) PO SCH (19:48)
[2021-01-19] MEDS: atorvastatin 20mg tablet PO SCH (19:48)
[2021-01-19] MEDS: insulin glargine (Lantus) pen - multi-dose SQ SCH (21:44)
[2021-01-19 22:00] VITALS: BP 123/45
--- NOTE | 2021-01-19 22:14 | NUR ---
Called Dr. Crump regarding patients blood glucose at 2100 of 70 and lantus dosing. He advised to only administer 10 units. Gave patient a orange juice and administered 10 units of lantus.
--- NOTE | 2021-01-20 | NUR ---
Patient in room ORTHO 4014. I have received report from Zeynep GONZALEZ and had the opportunity to ask questions and assume patient care. Agree with her physical assessment.
[2021-01-20 06:00] VITALS: BP 117/49
--- NOTE | 2021-01-20 06:30 | NUR ---
Problems reprioritized. Patient report given, questions answered & plan of care reviewed with Nataliya GONZALEZ.
[2021-01-20 07:09] LABS: BASOPHILS % (AUTO) 0.4 % (0-1); EOSINOPHILS # (AUTO) 0.3 X10'3 (0-0.9); EOSINOPHILS % (AUTO) 3.5 % (0-6); HEMATOCRIT 26.4 % (35.0-45.0); HEMOGLOBIN 8.8 g/dl (12.0-16.0); LYMPHOCYTES % (AUTO) 12.2 % (21-51); MEAN CORPUSCULAR HEMOGLOBIN 31.3 PG (27.0-31.0); MEAN CORPUSCULAR HGB CONC 33.5 g/dL (33.0-36.5); MEAN CORPUSCULAR VOLUME 93.5 FL (78-98); MEAN PLATELET VOLUME 8.6 FL (7.4-10.4); MONOCYTES # (AUTO) 0.6 X10'3 (0-0.9); MONOCYTES % (AUTO) 7.4 % (2-12); NEUTROPHILS # (AUTO) 6.2 X10'3 (1.8-7.7); NEUTROPHILS % (AUTO) 76.5 % (42-75); PLATELET COUNT 201 X10'3 (140-440); RED BLOOD COUNT 2.82 X10'6 (4.20-5.60); RED CELL DISTRIBUTION WIDTH 14.8 % (11.5-14.5); WHITE BLOOD COUNT 8.1 X10'3 (4.5-11.0)
[2021-01-20] MEDS: docusate sod 100mg capsule PO SCH ×2 (07:22→20:47)
[2021-01-20] MEDS: OMEGA-3/DHA/EPA/FISH OIL 1 EACH CAPSULE.DR PO SCH ×2 (07:22→20:47)
[2021-01-20] MEDS: CefTRIAXone 2gm/D5W 50ml BAG 50 ML IV SCH (07:22)
[2021-01-20] MEDS: lactobacillus rhamnosus 10,000 MMU CELLS/CAPSULE PO SCH ×2 (07:22→20:47)
[2021-01-20] MEDS: carvedilol 6.25mg tablet PO SCH ×2 (07:22→17:54)
[2021-01-20] MEDS: normal saline 1000ml 1,000 ML IV SCH ×3 (07:23→17:00)
[2021-01-20 07:43] LABS: ALANINE AMINOTRANSFERASE 35 U/L (12-78); ALBUMIN/GLOBULIN RATIO 0.7 (1.1-1.5); ALKALINE PHOSPHATASE 259 IU/L (46-116); ANION GAP 11 (8-16); ASPARTATE AMINO TRANSFERASE 33 U/L (10-37); BILIRUBIN,TOTAL 0.2 MG/DL (0.1-1.0); BLOOD UREA NITROGEN 12 MG/DL (7-18); BUN/CREATININE RATIO 11.1 (6.6-38.0); CALCIUM 8.6 MG/DL (8.5-10.1); CHLORIDE 108 MMOL/L (99-107); CREATININE 1.08 MG/DL (0.40-0.90); GLUCOSE 140 MG/DL (70-104); MAGNESIUM 1.7 MG/DL (1.5-2.4); POTASSIUM 3.9 MMOL/L (3.5-5.1); SODIUM 141 MMOL/L (135-145); TOTAL CARBON DIOXIDE 22.3 MMOL/L (24-32); TOTAL PROTEIN 4.9 G/DL (6.4-8.2); eGFR 50 ML/MIN
[2021-01-20] MEDS: K and/or MAG REPLACEMENT MC SCH ×2 (08:00→20:00)
[2021-01-20] MEDS: lisinopril 10 MG tablet PO SCH (08:00)
[2021-01-20] MEDS: insulin Lispro (HumaLOG) vial - multi-dose SQ SCH ×3 (09:38→19:08)
[2021-01-20 10:00] VITALS: BP 99/35
[2021-01-20 18:00] VITALS: BP 158/77
[2021-01-20] MEDS ORDERED: VANCOMYCIN LEVEL IV ONE (19:30)
[2021-01-20] MEDS ORDERED: ringers solution, lacted 1,000 ML IV ONE (20:35)
[2021-01-20] MEDS: metroNIDAZOLE 500mg tablet PO SCH (20:47)
[2021-01-20] MEDS: aspirin 325mg tablet, delayed-release (Ecotrin) PO SCH (20:47)
[2021-01-20] MEDS: VANCOMYCIN 750MG IV in NS 250 ML IV SCH (20:48)
[2021-01-20] MEDS: atorvastatin 20mg tablet PO SCH (20:48)
[2021-01-20] MEDS: insulin glargine (Lantus) pen - multi-dose SQ SCH (21:03)
--- NOTE | 2021-01-20 21:04 | NUR ---
I called Dr. Guzmán to inquire on what dose of Lantus to give patient since she is going to surgery in am ans will be npo. He said she should be fine with 10units like she took last night after I went over her blood sugar labs.
[2021-01-20 22:00] VITALS: BP 129/40
[2021-01-21] VITALS (20 sets, daily range): BP systolic 122–174; BP diastolic 32–77
[2021-01-21] MEDS ORDERED: famotidine 20mg tablet PO ONE (06:00)
[2021-01-21] MEDS: normal saline 1000ml 1,000 ML IV SCH ×2 (06:20→19:08)
--- NOTE | 2021-01-21 06:44 | NUR ---
Patient in room ORTHO 4014. I have received report from LISA Garza, and had the opportunity to ask questions and assume patient care.
[2021-01-21 06:51] LABS: ALANINE AMINOTRANSFERASE 32 U/L (12-78); ALBUMIN 1.7 G/DL (3.4-5.0); ALBUMIN/GLOBULIN RATIO 0.6 (1.1-1.5); ALKALINE PHOSPHATASE 255 IU/L (46-116); ANION GAP 9 (8-16); ASPARTATE AMINO TRANSFERASE 28 U/L (10-37); BILIRUBIN,TOTAL 0.2 MG/DL (0.1-1.0); BLOOD UREA NITROGEN 12 MG/DL (7-18); BUN/CREATININE RATIO 11.5 (6.6-38.0); CALCIUM 7.9 MG/DL (8.5-10.1); CHLORIDE 114 MMOL/L (99-107); CREATININE 1.04 MG/DL (0.40-0.90); GLUCOSE 136 MG/DL (70-104); MAGNESIUM 1.4 MG/DL (1.5-2.4); POTASSIUM 3.8 MMOL/L (3.5-5.1); SODIUM 145 MMOL/L (135-145); TOTAL PROTEIN 4.4 G/DL (6.4-8.2); eGFR 53 ML/MIN
[2021-01-21 06:59] LABS: BASOPHILS % (AUTO) 0.4 % (0-1); EOSINOPHILS # (AUTO) 0.4 X10'3 (0-0.9); EOSINOPHILS % (AUTO) 5.8 % (0-6); HEMATOCRIT 22.6 % (35.0-45.0); HEMOGLOBIN 7.6 g/dl (12.0-16.0); LYMPHOCYTES # (AUTO) 1.2 X10'3 (1.1-4.8); MEAN CORPUSCULAR HGB CONC 33.7 g/dL (33.0-36.5); MEAN CORPUSCULAR VOLUME 94.9 FL (78-98); MEAN PLATELET VOLUME 8.1 FL (7.4-10.4); MONOCYTES # (AUTO) 0.5 X10'3 (0-0.9); NEUTROPHILS # (AUTO) 5.2 X10'3 (1.8-7.7); NEUTROPHILS % (AUTO) 70.8 % (42-75); PLATELET COUNT 188 X10'3 (140-440); RED BLOOD COUNT 2.38 X10'6 (4.20-5.60); RED CELL DISTRIBUTION WIDTH 14.6 % (11.5-14.5); WHITE BLOOD COUNT 7.3 X10'3 (4.5-11.0)
[2021-01-21] MEDS: carvedilol 6.25mg tablet PO SCH ×2 (07:30→16:38)
--- NOTE | 2021-01-21 07:51 | NUR ---
Telephone order from Dr Dove to infuse 2 units PRBC's. Consent signed by patient and educational handout reviewed and given to patient.
[2021-01-21] MEDS: metroNIDAZOLE 500mg tablet PO SCH ×2 (08:00→19:44)
[2021-01-21] MEDS: K and/or MAG REPLACEMENT MC SCH ×2 (08:00→19:36)
[2021-01-21] MEDS: lactobacillus rhamnosus 10,000 MMU CELLS/CAPSULE PO SCH ×2 (08:00→19:44)
[2021-01-21] MEDS: lisinopril 10 MG tablet PO SCH ×3 (08:00→12:48)
[2021-01-21] MEDS: docusate sod 100mg capsule PO SCH ×2 (08:00→19:44)
[2021-01-21] MEDS: OMEGA-3/DHA/EPA/FISH OIL 1 EACH CAPSULE.DR PO SCH ×2 (08:00→19:43)
[2021-01-21] MEDS: CefTRIAXone 2gm/D5W 50ml BAG 50 ML IV SCH (08:00)
[2021-01-21] MEDS ORDERED: heparin 10,000 units/1 ML INJ ONE (08:09)
[2021-01-21] MEDS ORDERED: LIDOcaine 1% (10mg/ml) 2ml vial ONE (08:09)
[2021-01-21 08:13] LABS: % IRON SATURATION 16 % (11-46); IRON 19 UG/DL (49-151); TOTAL IRON BINDING CAPACITY 119 UG/DL (259-388)
--- NOTE | 2021-01-21 09:00 | NUR ---
Blood was started at 0811. Preop vitals were documented, 15min vitals @ 0826 were documented. No reaction - pt tolerated well. Blood was still infusing when OR came to pick her up at 0900 for procedure.
[2021-01-21] MEDS ORDERED: proCHLORperazine 10 MG/2 ml inj IV PRN (09:20)
[2021-01-21] MEDS ORDERED: morphine 4 MG/ML inj SYRINge IV PRN (09:20)
[2021-01-21] MEDS ORDERED: meperidine/PF 25mg/ml syringe IV PRN ×3 (09:20)
[2021-01-21] MEDS ORDERED: ringers solution, lacted 1,000 ML IV SCH (09:20)
[2021-01-21] MEDS ORDERED: fentaNYL/PF 50MCG/1 ML 2ML syringe ONE (09:20)
[2021-01-21] MEDS ORDERED: MIDAZolam 1 MG/ML 5ML VIAL ONE (09:20)
[2021-01-21] MEDS ORDERED: morphine 2 MG/ML inj. syringe IV PRN (09:20)
[2021-01-21] MEDS ORDERED: ondansetron/PF 4mg/2ml inj IV PRN (09:20)
--- NOTE | 2021-01-21 09:52 | NUR ---
preop pepcid not administered d/t additional orders - ok per Dr Dove
--- NOTE | 2021-01-21 10:09 | NUR ---
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 Pt previously on a heart healthy CHO controlled diet and eating well with average 75-100% PO intake however currently NPO for OR, pending right femoral thromboendarterectomy per MD note. LBM 01/19. Will continue to follow and monitor need for nutrition intervention pending diet advancement post-op. Recommendations: 1) Advance to heart healthy CHO controlled diet as medically indicated post-op 2) Monitor need for additional protein with diet advancement 3) Bowel care per rx 4) Scaled weight this admit; weekly scaled weights thereafter Addendum: 01/21/21 at [address] Amended: Links added.
[2021-01-21] MEDS ORDERED: heparin 1,000unit/ml 10ml vial 10 ML ONE (11:13)
[2021-01-21] MEDS ORDERED: ePHEDrine 50MG/ML INJ. ONE (11:18)
--- NOTE | 2021-01-21 11:30 | NUR ---
Received from OR via [facility], accompanied by Anesthesiologist and report given by Anesthesiologist. PATIENT WAKING UP, NO S/S OF PAIN, V/S WNL, PICC TO RUE, ART LINE RUE, F/C DRAINING CLEAR YELLOW URINE, PROVENA DRESSING TO WV AT 125 LOW CONTINOUS SUCTION WITH NO OUTPUT YET AND NO LEAKS DETECTED,
--- NOTE | 2021-01-21 11:50 | NUR ---
Received from OR via rblanket, accompanied by Anesthesiologist and report given by Anesthesiologist. PATIENT WAKING UP, NO S/S OF PAIN, V/S WNL, 20G TO QUIRINO BEARDEN F/C DRAINING CLEAR TELLOW URINE, PROVENA DRESSING TO WV AT 75 CONTINOUS SUCTION WITH NO OUTPUT YET AND NO LEAKS DETECTED, Addendum: 01/21/21 at 1151 by Dariel Vaughn RN WRONG TIME WRONG NOTE
[2021-01-21] MEDS ORDERED: potassium Cl 40MEQ/1/2NS 520ml 520 ML IV PRN ×2 (12:25)
[2021-01-21] MEDS ORDERED: potassium Cl 20 mEq SR tablet PO PRN ×2 (12:25)
[2021-01-21] MEDS ORDERED: magnesium Cl slow-release 64mg tablet PO PRN (12:25)
[2021-01-21] MEDS ORDERED: magnesium 2GM in 50ml NS 50 ML IV PRN (12:25)
[2021-01-21] MEDS ORDERED: magnesium 4gm in 100ml NS 100 ML IV PRN (12:25)
--- NOTE | 2021-01-21 12:25 | NUR ---
Per - manuel to reinstate Mg/K protocol.
--- NOTE | 2021-01-21 12:25 | NUR ---
Paged Dr Oquendo PAGER ID: [phone] MESSAGE: Room 4014B. Fiorella Galvez. Mg 1.4, electrolyte protocol dropped off. Can I reinstate to replace Mg? Thanks, Nedra [phone]
--- NOTE | 2021-01-21 12:30 | NUR ---
PATIENT A&OX4, DENIES PAIN, V/S WNL, PICC TO RUHanna, ART LINE RUE D/C, F/C DRAINING CLEAR YELLOW URINE, PROVENA DRESSING RIGHT GROIN TO WV AT 125 LOW CONTINOUS SUCTION WITH NO OUTPUT YET AND NO LEAKS DETECTED, PATIENT TAKEN TO 4014B AND REPORT GIVEN TO RN WHO HAS TAKEN OVER PATIENT CARE.
--- NOTE | 2021-01-21 12:30 | NUR ---
Patient received to unit, A/Ox4. No C/O pain or S/S of distress. WV/provena to right groin running at 125mmHg low continuos. LR running at 20ml/hr for the next few hours then change to whats ordered. F/C draining to gravity. Post op vitals are in progress. Bilat tibial pulses are strong via doppler. Right wrist wrapped (d/c'd art line) - pulse palpated.
--- NOTE | 2021-01-21 13:22 | NUR ---
0800 SCHEDULED LISINOPRIL 10 MG ADMINISTERED POST PROCEDURE, MANUALLY ADMINISTERED FOR CORRECT TIME.
--- NOTE | 2021-01-21 16:32 | NUR ---
Paged Dr Oquendo PAGER ID: [phone] MESSAGE: Room 4014B, Fiorella Galvez. BP 174/69, 1730 sched 6.25 coreg, can I give early? Nedra [phone]
[2021-01-21] MEDS ORDERED: hydrALAZINE 20mg/ml inj. IV PRN (16:40)
[2021-01-21 16:59] LABS: HEMATOCRIT 39.5 % (35.0-45.0); HEMOGLOBIN 13.2 g/dl (12.0-16.0); MEAN CORPUSCULAR HEMOGLOBIN 31.2 PG (27.0-31.0); MEAN CORPUSCULAR HGB CONC 33.4 g/dL (33.0-36.5); MEAN CORPUSCULAR VOLUME 93.6 FL (78-98); MEAN PLATELET VOLUME 8.2 FL (7.4-10.4); PLATELET COUNT 229 X10'3 (140-440); RED BLOOD COUNT 4.22 X10'6 (4.20-5.60); WHITE BLOOD COUNT 13.2 X10'3 (4.5-11.0)
--- NOTE | 2021-01-21 18:24 | NUR ---
Problems reprioritized. Patient report given, questions answered & plan of care reviewed with LISA ALLRED.
--- NOTE | 2021-01-21 18:33 | NUR ---
Orientee documentation: I have reviewed and agree with all interventions, assessments performed and documented by LISA Tamayo.
[2021-01-21] MEDS: insulin Lispro (HumaLOG) vial - multi-dose SQ SCH (19:00)
[2021-01-21] MEDS: aspirin 325mg tablet, delayed-release (Ecotrin) PO SCH (19:43)
[2021-01-21] MEDS: atorvastatin 20mg tablet PO SCH (19:43)
[2021-01-21] MEDS: HYDROcodone/acetaminophen 5mg/325mg tablet PO PRN (19:44)
[2021-01-21] MEDS: VANCOMYCIN 750MG IV in NS 250 ML IV SCH (19:44)
[2021-01-21] MEDS: insulin glargine (Lantus) pen - multi-dose SQ SCH (21:00)
[2021-01-22] MEDS: HYDROcodone/acetaminophen 5mg/325mg tablet PO PRN (04:55)
[2021-01-22 06:00] VITALS: BP 134/92
--- NOTE | 2021-01-22 06:32 | NUR ---
Problems reprioritized. Patient report given, questions answered & plan of care reviewed with LISA Parker.
--- NOTE | 2021-01-22 07:32 | NUR ---
PAGER ID: [phone] MESSAGE: [phone] Lenny no orders for cbc, chem this am [phone] LISA
[2021-01-22] MEDS: OMEGA-3/DHA/EPA/FISH OIL 1 EACH CAPSULE.DR PO SCH ×2 (07:55→20:42)
[2021-01-22] MEDS: lactobacillus rhamnosus 10,000 MMU CELLS/CAPSULE PO SCH ×2 (07:55→20:42)
[2021-01-22] MEDS: CefTRIAXone 2gm/D5W 50ml BAG 50 ML IV SCH (07:55)
[2021-01-22] MEDS: carvedilol 6.25mg tablet PO SCH ×2 (07:55→18:12)
[2021-01-22] MEDS: metroNIDAZOLE 500mg tablet PO SCH ×2 (07:55→20:42)
[2021-01-22] MEDS: docusate sod 100mg capsule PO SCH ×2 (07:55→20:42)
[2021-01-22 07:56] LABS: MAGNESIUM 1.7 MG/DL (1.5-2.4)
[2021-01-22] MEDS: K and/or MAG REPLACEMENT MC SCH ×2 (08:00→20:00)
[2021-01-22] MEDS: lisinopril 10 MG tablet PO SCH (08:12)
[2021-01-22 08:23] LABS: BASOPHILS # (AUTO) 0.1 X10'3 (0-0.2); BASOPHILS % (AUTO) 0.5 % (0-1); EOSINOPHILS % (AUTO) 7.1 % (0-6); HEMATOCRIT 37.7 % (35.0-45.0); HEMOGLOBIN 12.5 g/dl (12.0-16.0); LYMPHOCYTES # (AUTO) 1.2 X10'3 (1.1-4.8); LYMPHOCYTES % (AUTO) 8.8 % (21-51); MEAN CORPUSCULAR HEMOGLOBIN 31.1 PG (27.0-31.0); MEAN CORPUSCULAR HGB CONC 33.3 g/dL (33.0-36.5); MEAN CORPUSCULAR VOLUME 93.3 FL (78-98); MEAN PLATELET VOLUME 8.6 FL (7.4-10.4); MONOCYTES # (AUTO) 0.9 X10'3 (0-0.9); MONOCYTES % (AUTO) 6.6 % (2-12); NEUTROPHILS # (AUTO) 10.6 X10'3 (1.8-7.7); PLATELET COUNT 233 X10'3 (140-440); RED BLOOD COUNT 4.03 X10'6 (4.20-5.60); RED CELL DISTRIBUTION WIDTH 15.2 % (11.5-14.5); WHITE BLOOD COUNT 13.8 X10'3 (4.5-11.0)
[2021-01-22 08:38] LABS: ALANINE AMINOTRANSFERASE 24 U/L (12-78); ALBUMIN 1.7 G/DL (3.4-5.0); ALBUMIN/GLOBULIN RATIO 0.6 (1.1-1.5); ALKALINE PHOSPHATASE 251 IU/L (46-116); ANION GAP 12 (8-16); ASPARTATE AMINO TRANSFERASE 18 U/L (10-37); BILIRUBIN,TOTAL 0.4 MG/DL (0.1-1.0); BLOOD UREA NITROGEN 14 MG/DL (7-18); BUN/CREATININE RATIO 13.6 (6.6-38.0); CALCIUM 8.6 MG/DL (8.5-10.1); CHLORIDE 112 MMOL/L (99-107); CREATININE 1.03 MG/DL (0.40-0.90); GLUCOSE 186 MG/DL (70-104); SODIUM 141 MMOL/L (135-145); TOTAL CARBON DIOXIDE 16.7 MMOL/L (24-32); TOTAL PROTEIN 4.7 G/DL (6.4-8.2); eGFR 53 ML/MIN
[2021-01-22] MEDS: insulin Lispro (HumaLOG) vial - multi-dose SQ SCH ×4 (09:24→21:02)
[2021-01-22 11:00] VITALS: BP 140/52
--- NOTE | 2021-01-22 13:07 | NUR ---
PAGER ID: [phone] MESSAGE: [id number] bicarb in D5? not NS? [phone] LISA
--- NOTE | 2021-01-22 13:08 | NUR ---
Return call from Dr Oquendo, administer bicarb as ordered in dextrose.
[2021-01-22] MEDS: sodium bicarbonate (8.4%) inj. 100 MEQ in dextrose 5%-water 1,000 ML IV SCH ×2 (13:12→20:42)
[2021-01-22 18:00] VITALS: BP 137/59
[2021-01-22] MEDS: atorvastatin 20mg tablet PO SCH (20:42)
[2021-01-22] MEDS: VANCOMYCIN 750MG IV in NS 250 ML IV SCH (20:42)
[2021-01-22] MEDS: HYDROcodone/acetaminophen 10/325mg tab PO PRN (20:43)
[2021-01-22] MEDS: aspirin 325mg tablet, delayed-release (Ecotrin) PO SCH (20:44)
[2021-01-22] MEDS: insulin glargine (Lantus) pen - multi-dose SQ SCH (21:03)
[2021-01-22 22:00] VITALS: BP 139/61
[2021-01-23 06:00] VITALS: BP 148/66
[2021-01-23] MEDS: HYDROcodone/acetaminophen 5mg/325mg tablet PO PRN ×2 (06:01→20:11)
--- NOTE | 2021-01-23 06:15 | NUR ---
Patient in room ORTHO 4014. I have received report from The Noc nurse and had the opportunity to ask questions and assume patient care.
[2021-01-23 06:18] LABS: BASOPHILS # (AUTO) 0.1 X10'3 (0-0.2); BASOPHILS % (AUTO) 0.5 % (0-1); EOSINOPHILS # (AUTO) 0.7 X10'3 (0-0.9); EOSINOPHILS % (AUTO) 5.8 % (0-6); HEMATOCRIT 37.6 % (35.0-45.0); HEMOGLOBIN 12.6 g/dl (12.0-16.0); LYMPHOCYTES # (AUTO) 1.5 X10'3 (1.1-4.8); LYMPHOCYTES % (AUTO) 12.4 % (21-51); MEAN CORPUSCULAR HEMOGLOBIN 31.1 PG (27.0-31.0); MEAN CORPUSCULAR HGB CONC 33.6 g/dL (33.0-36.5); MEAN CORPUSCULAR VOLUME 92.6 FL (78-98); MEAN PLATELET VOLUME 8.2 FL (7.4-10.4); MONOCYTES # (AUTO) 0.9 X10'3 (0-0.9); MONOCYTES % (AUTO) 7.8 % (2-12); NEUTROPHILS # (AUTO) 8.6 X10'3 (1.8-7.7); NEUTROPHILS % (AUTO) 73.5 % (42-75); PLATELET COUNT 224 X10'3 (140-440); RED BLOOD COUNT 4.06 X10'6 (4.20-5.60); WHITE BLOOD COUNT 11.7 X10'3 (4.5-11.0)
[2021-01-23 06:30] LABS: ALANINE AMINOTRANSFERASE 20 U/L (12-78); ALBUMIN 1.5 G/DL (3.4-5.0); ALBUMIN/GLOBULIN RATIO 0.5 (1.1-1.5); ALKALINE PHOSPHATASE 197 IU/L (46-116); ANION GAP 7 (8-16); ASPARTATE AMINO TRANSFERASE 14 U/L (10-37); BILIRUBIN,TOTAL 0.3 MG/DL (0.1-1.0); BLOOD UREA NITROGEN 11 MG/DL (7-18); BUN/CREATININE RATIO 10.3 (6.6-38.0); CALCIUM 8.4 MG/DL (8.5-10.1); CHLORIDE 109 MMOL/L (99-107); CREATININE 1.07 MG/DL (0.40-0.90); GLUCOSE 240 MG/DL (70-104); MAGNESIUM 1.7 MG/DL (1.5-2.4); POTASSIUM 3.5 MMOL/L (3.5-5.1); SODIUM 141 MMOL/L (135-145); TOTAL CARBON DIOXIDE 25.5 MMOL/L (24-32); TOTAL PROTEIN 4.6 G/DL (6.4-8.2); eGFR 51 ML/MIN
--- NOTE | 2021-01-23 06:40 | NUR ---
Problems reprioritized. Patient report given, questions answered & plan of care reviewed with LISA Parker.
[2021-01-23] MEDS: sodium bicarbonate (8.4%) inj. 100 MEQ in dextrose 5%-water 1,000 ML IV SCH ×2 (06:50→12:55)
[2021-01-23] MEDS: docusate sod 100mg capsule PO SCH ×2 (07:36→20:12)
[2021-01-23] MEDS: OMEGA-3/DHA/EPA/FISH OIL 1 EACH CAPSULE.DR PO SCH ×2 (07:36→20:12)
[2021-01-23] MEDS: metroNIDAZOLE 500mg tablet PO SCH (07:36)
[2021-01-23] MEDS: lactobacillus rhamnosus 10,000 MMU CELLS/CAPSULE PO SCH ×2 (07:36→20:10)
[2021-01-23] MEDS: carvedilol 6.25mg tablet PO SCH ×2 (07:36→16:36)
[2021-01-23] MEDS: CefTRIAXone 2gm/D5W 50ml BAG 50 ML IV SCH (07:37)
[2021-01-23] MEDS: lisinopril 10 MG tablet PO SCH (07:40)
[2021-01-23] MEDS: K and/or MAG REPLACEMENT MC SCH ×2 (07:54→20:00)
[2021-01-23] MEDS: insulin Lispro (HumaLOG) vial - multi-dose SQ SCH ×4 (09:13→22:30)
[2021-01-23 11:00] VITALS: BP 131/57
--- NOTE | 2021-01-23 15:12 | NUR ---
RN TC: Pt PO decreased to 0-25% past 2 days now refusing all milks that are not whole milk on CCHO/HH/MM5 diet. Given lipid panel and Na WNL since admit and pt current poor PO trends RD notified dietary ok to send whole milks w/ meals for additional protein/kcals. Addendum: 01/23/21 at [address] Amended: Links added.
[2021-01-23] MEDS: sod chloride 0.9% 10ml flush syringe IV SCH (16:37)
[2021-01-23 18:00] VITALS: BP 154/70
[2021-01-23] MEDS: VANCOMYCIN 750MG IV in NS 250 ML IV SCH (20:14)
[2021-01-23 22:00] VITALS: BP 135/42
[2021-01-23] MEDS: insulin glargine (Lantus) pen - multi-dose SQ SCH (22:29)
[2021-01-23] MEDS: aspirin 325mg tablet, delayed-release (Ecotrin) PO SCH (22:30)
[2021-01-23] MEDS: atorvastatin 20mg tablet PO SCH (22:31)
[2021-01-24] MEDS: sod chloride 0.9% 10ml flush syringe IV SCH ×3 (00:56→15:59)
[2021-01-24] MEDS: sodium bicarbonate (8.4%) inj. 100 MEQ in dextrose 5%-water 1,000 ML IV SCH ×3 (01:21→22:26)
[2021-01-24 05:55] LABS: BASOPHILS # (AUTO) 0.1 X10'3 (0-0.2); BASOPHILS % (AUTO) 0.6 % (0-1); EOSINOPHILS # (AUTO) 0.7 X10'3 (0-0.9); EOSINOPHILS % (AUTO) 7.2 % (0-6); HEMATOCRIT 34.8 % (35.0-45.0); HEMOGLOBIN 11.9 g/dl (12.0-16.0); LYMPHOCYTES # (AUTO) 1.3 X10'3 (1.1-4.8); LYMPHOCYTES % (AUTO) 13.6 % (21-51); MEAN CORPUSCULAR HEMOGLOBIN 31.2 PG (27.0-31.0); MEAN CORPUSCULAR HGB CONC 34.1 g/dL (33.0-36.5); MEAN CORPUSCULAR VOLUME 91.6 FL (78-98); MEAN PLATELET VOLUME 7.8 FL (7.4-10.4); MONOCYTES # (AUTO) 0.7 X10'3 (0-0.9); MONOCYTES % (AUTO) 7.6 % (2-12); NEUTROPHILS # (AUTO) 6.9 X10'3 (1.8-7.7); PLATELET COUNT 226 X10'3 (140-440); RED CELL DISTRIBUTION WIDTH 14.9 % (11.5-14.5); WHITE BLOOD COUNT 9.7 X10'3 (4.5-11.0)
--- NOTE | 2021-01-24 06:00 | NUR ---
Patient in room ORTHO 4014. I have received report from KEATON GONZALEZ and had the opportunity to ask questions and assume patient care.
[2021-01-24 06:22] LABS: ALANINE AMINOTRANSFERASE 13 U/L (12-78); ALBUMIN 1.6 G/DL (3.4-5.0); ALBUMIN/GLOBULIN RATIO 0.6 (1.1-1.5); ALKALINE PHOSPHATASE 169 IU/L (46-116); ANION GAP 4 (8-16); ASPARTATE AMINO TRANSFERASE 14 U/L (10-37); BILIRUBIN,TOTAL 0.3 MG/DL (0.1-1.0); BLOOD UREA NITROGEN 9 MG/DL (7-18); BUN/CREATININE RATIO 8.9 (6.6-38.0); CALCIUM 8.6 MG/DL (8.5-10.1); CHLORIDE 105 MMOL/L (99-107); CREATININE 1.01 MG/DL (0.40-0.90); GLUCOSE 255 MG/DL (70-104); POTASSIUM 3.4 MMOL/L (3.5-5.1); SODIUM 141 MMOL/L (135-145); TOTAL CARBON DIOXIDE 31.8 MMOL/L (24-32); TOTAL PROTEIN 4.3 G/DL (6.4-8.2); eGFR 54 ML/MIN
[2021-01-24 07:57] VITALS: BP 150/55
[2021-01-24] MEDS: docusate sod 100mg capsule PO SCH ×2 (08:22→19:45)
[2021-01-24] MEDS: lisinopril 10 MG tablet PO SCH (08:23)
[2021-01-24] MEDS: lactobacillus rhamnosus 10,000 MMU CELLS/CAPSULE PO SCH ×2 (08:23→19:44)
[2021-01-24] MEDS: carvedilol 6.25mg tablet PO SCH ×2 (08:23→16:49)
[2021-01-24] MEDS: OMEGA-3/DHA/EPA/FISH OIL 1 EACH CAPSULE.DR PO SCH ×2 (08:23→19:45)
[2021-01-24] MEDS: K and/or MAG REPLACEMENT MC SCH ×2 (08:26→19:55)
[2021-01-24] MEDS: insulin Lispro (HumaLOG) vial - multi-dose SQ SCH ×3 (08:48→19:42)
[2021-01-24 11:30] VITALS: BP 136/50
[2021-01-24 18:00] VITALS: BP 140/50
[2021-01-24] MEDS: HYDROcodone/acetaminophen 5mg/325mg tablet PO PRN (19:44)
[2021-01-24] MEDS: VANCOMYCIN 750MG IV in NS 250 ML IV SCH (19:46)
[2021-01-24] MEDS: insulin glargine (Lantus) pen - multi-dose SQ SCH (21:28)
[2021-01-24] MEDS: atorvastatin 20mg tablet PO SCH (21:32)
[2021-01-24] MEDS: aspirin 325mg tablet, delayed-release (Ecotrin) PO SCH (21:32)
[2021-01-24 22:00] VITALS: BP 99/45
[2021-01-25] MEDS: sod chloride 0.9% 10ml flush syringe IV SCH ×2 (00:11→09:44)
[2021-01-25 03:24] LABS: BASOPHILS # (AUTO) 0.1 X10'3 (0-0.2); BASOPHILS % (AUTO) 0.5 % (0-1); EOSINOPHILS # (AUTO) 0.9 X10'3 (0-0.9); EOSINOPHILS % (AUTO) 8.9 % (0-6); HEMOGLOBIN 11.5 g/dl (12.0-16.0); LYMPHOCYTES # (AUTO) 1.6 X10'3 (1.1-4.8); LYMPHOCYTES % (AUTO) 15.2 % (21-51); MEAN CORPUSCULAR HGB CONC 33.8 g/dL (33.0-36.5); MEAN CORPUSCULAR VOLUME 91.8 FL (78-98); MEAN PLATELET VOLUME 7.9 FL (7.4-10.4); MONOCYTES # (AUTO) 0.7 X10'3 (0-0.9); MONOCYTES % (AUTO) 6.3 % (2-12); NEUTROPHILS # (AUTO) 7.2 X10'3 (1.8-7.7); NEUTROPHILS % (AUTO) 69.1 % (42-75); PLATELET COUNT 227 X10'3 (140-440); WHITE BLOOD COUNT 10.4 X10'3 (4.5-11.0)
[2021-01-25 03:33] LABS: ALANINE AMINOTRANSFERASE 17 U/L (12-78); ALBUMIN 1.3 G/DL (3.4-5.0); ALBUMIN/GLOBULIN RATIO 0.4 (1.1-1.5); ALKALINE PHOSPHATASE 168 IU/L (46-116); ASPARTATE AMINO TRANSFERASE 19 U/L (10-37); BILIRUBIN,TOTAL 0.3 MG/DL (0.1-1.0); BLOOD UREA NITROGEN 9 MG/DL (7-18); BUN/CREATININE RATIO 9.5 (6.6-38.0); CALCIUM 8.6 MG/DL (8.5-10.1); CREATININE 0.95 MG/DL (0.40-0.90); GLUCOSE 135 MG/DL (70-104); TOTAL CARBON DIOXIDE 35.1 MMOL/L (24-32); TOTAL PROTEIN 4.6 G/DL (6.4-8.2); eGFR 58 ML/MIN
[2021-01-25 03:44] LABS: ANION GAP 3 (8-16); CHLORIDE 106 MMOL/L (99-107); POTASSIUM 3.8 MMOL/L (3.5-5.1); SODIUM 144 MMOL/L (135-145)
[2021-01-25 06:00] VITALS: BP 137/68
--- NOTE | 2021-01-25 06:29 | NUR ---
Patient in room ORTHO 4014. I have received report from Suresh GONZALEZ and had the opportunity to ask questions and assume patient care.
[2021-01-25] MEDS: K and/or MAG REPLACEMENT MC SCH (08:00)
[2021-01-25] MEDS: insulin Lispro (HumaLOG) vial - multi-dose SQ SCH ×2 (09:43→13:41)
[2021-01-25] MEDS: lisinopril 10 MG tablet PO SCH (09:43)
[2021-01-25] MEDS: carvedilol 6.25mg tablet PO SCH (09:44)
[2021-01-25] MEDS: docusate sod 100mg capsule PO SCH (09:44)
[2021-01-25] MEDS: lactobacillus rhamnosus 10,000 MMU CELLS/CAPSULE PO SCH (09:44)
[2021-01-25] MEDS: OMEGA-3/DHA/EPA/FISH OIL 1 EACH CAPSULE.DR PO SCH (09:44)
[2021-01-25 10:00] VITALS: BP 131/49
[2021-01-25] MEDS ORDERED: HYDR-3965 PO (13:09)
--- NOTE | 2021-01-25 14:44 | NUR ---
Contacted Dr Petty regarding patient is being discharged today and does patient need to follow up in office. Per Dr Petty she is a Dr Kaur patient and have her follow up with him in the office in [address].
--- NOTE | 2021-01-25 16:25 | NUR ---
Patients discharge instructions reviewed with patient and patient verbalized understanding. patient aware she has appointments set up at wound clinic and the time and appointment daily at [facility] infusion daily and appt time. patient will call Dr Kaur and make follow up appointment for 1 week from today phone number provided. Patient provena vac changed to provena suction for discharge. Dressing change done to patients right foot and Pictures taken. PICC dressing changed for discharge. Patient taken to vehicle where friend was waiting for her and stated she had all her belongings. Tele DC"d for discharge.
[2021-01-25] MEDS ORDERED: VANCOMYCIN LEVEL IV ONE (19:30)
--- NOTE | 2021-01-26 09:56 | NUR ---
Case Management DC follow up: spoke to pt over the phone, c/o family members, needed constant redirection. Stated she did not know about [facility] Infusion clinic today at 1100. Spoke to manuscript editor, Justen Betancourt and gave him info, as it is his first day at pt home. Taking care of pt & pt spouse. Justen stated he will be able to help/do the infusions q/day for pt. States pt should not drive with that R foot, still has provena disposable wound vac in place, and pt states she is in pain. Fire Sprinkler Service Technician/Justen Betancourt agrees to read over pt DC papers and will contact Infusion clinic to confirm appt. Spoke to [facility] director, Janet, about case. [facility] agreed to take pt, and will be sending a nurse out today 01/26/21. Teresa will be contacted by [facility] director to change Rx to pt home as there is now assistance for pt q/day per Seymour Betancourt ([phone]). Pt Denies: Acute/continuous CP, emergent SOB, resp distress, orthopnea, dyspnea, N/V, hematemesis, weakness, vertigo, syncope episodes, orthostatic hypotension, SHANNON, blurry vision, s/s stroke/FAST, dysphagia, bladder pain, dysuria, polyuria, hematuria, retention, abd pain/distention, hematochezia, melena, unexplained bruising, bleeding, fever, chills. Verbalizes compliance w/aftercare. Verbalizes understanding of s/s that warrant 9-11/ER visit for further evaluation.Reminded pt several times about need to schedule/confirm/keep follow up appt w/PCP Choudry. Kaur in 1 week. Needs met, questions/concerns addressed at DC; No further questions/concerns r/t recent hospital stay and/or DC status at this time.
== END 2021-01-25 16:30 | disposition home health service (06) | DRG 629 ==
LOC: ER 12:24 → ED HOLD 19:56 → ORTHO 4S 01-17 07:27
PROVIDERS: ADMIT Family Medicine; ATTEND Family Medicine
PROC: CP1C1ZZ Planar Nuclear Medicine Imaging of Right Lower Extremity using Technetium 99m (Tc-99m) (ICD-10-PCS; 2021-01-18)
PROC: B4201ZZ Computerized Tomography (CT Scan) of Abdominal Aorta using Low Osmolar Contrast (ICD-10-PCS; 2021-01-18)
PROC: B42H1ZZ Computerized Tomography (CT Scan) of Bilateral Lower Extremity Arteries using Low Osmolar Contrast (ICD-10-PCS; 2021-01-18)
PROC: B42H1ZZ Computerized Tomography (CT Scan) of Bilateral Lower Extremity Arteries using Low Osmolar Contrast (ICD-10-PCS; 2021-01-18)
PROC: 047K3ZZ Dilation of Right Femoral Artery, Percutaneous Approach (ICD-10-PCS; principal; 2021-01-19)
PROC: B41C1ZZ Fluoroscopy of Pelvic Arteries using Low Osmolar Contrast (ICD-10-PCS; 2021-01-19)
PROC: B41F1ZZ Fluoroscopy of Right Lower Extremity Arteries using Low Osmolar Contrast (ICD-10-PCS; 2021-01-19)
PROC: 02HV33Z Insertion of Infusion Device into Superior Vena Cava, Percutaneous Approach (ICD-10-PCS; 2021-01-20)
PROC: B548ZZA Ultrasonography of Superior Vena Cava, Guidance (ICD-10-PCS; 2021-01-20)
PROC: 30233N1 Transfusion of Nonautologous Red Blood Cells into Peripheral Vein, Percutaneous Approach (ICD-10-PCS; 2021-01-21)
DX: E11.69 Type 2 diabetes mellitus with other specified complication (principal); N39.0 Urinary tract infection, site not specified; M86.8X7 Other osteomyelitis, ankle and foot; L03.115 Cellulitis of right lower limb; E11.52 Type 2 diabetes mellitus with diabetic peripheral angiopathy with gangrene; N17.0 Acute kidney failure with tubular necrosis; D63.8 Anemia in other chronic diseases classified elsewhere; E11.22 Type 2 diabetes mellitus with diabetic chronic kidney disease; E11.42 Type 2 diabetes mellitus with diabetic polyneuropathy; E11.65 Type 2 diabetes mellitus with hyperglycemia; E78.00 Pure hypercholesterolemia, unspecified; E78.5 Hyperlipidemia, unspecified; I12.9 Hypertensive chronic kidney disease with stage 1 through stage 4 chronic kidney disease, or unspecified chronic kidney disease; B95.62 Methicillin resistant Staphylococcus aureus infection as the cause of diseases classified elsewhere; I25.10 Atherosclerotic heart disease of native coronary artery without angina pectoris; I34.0 Nonrheumatic mitral (valve) insufficiency; M85.80 Other specified disorders of bone density and structure, unspecified site; N18.30 Chronic kidney disease, stage 3 unspecified; Z79.4 Long term (current) use of insulin; Z79.82 Long term (current) use of aspirin; Z79.899 Other long term (current) drug therapy; Z80.0 Family history of malignant neoplasm of digestive organs; Z89.421 Acquired absence of other right toe(s); Z95.0 Presence of cardiac pacemaker; Z95.1 Presence of aortocoronary bypass graft
CPT/HCPCS: 36415; 36430; 36573; 37224; 71045; 73630; 73700; 75635; 76856; 78315; 80053; 80061; 80202; 81001; 82948; 83540; 83550; 83605; 83735; 84145; 85025; 85027; 85347; 85730; 86885; 86900; 86901; 86920; 87040; 87070; 87077; 87081; 87088; 87186; 93005; 93306; 93922; 93926; 93976; 94760; 96365; 96366; 96368; 97161; 97164; 97530; 97535; 99152; 99153; 99285; A4215; A4338; A4615; A6258; A6449; A7000; A9503; C1725; C1758; C1760; C1769; C1894; G0378; J0696; J1644; J1650; J1815; J2001; J2250; J3010; J3370; J3490; J7030; J7040; J7050; P9016; Q9967

== ENCOUNTER 2021-05-05 09:38 | Inpatient (IN) | payer MEDICARE, MEDICAID ==
[2021-05-02 11:50] LABS: BASOPHILS % (AUTO) 0.6 % (0-1); EOSINOPHILS # (AUTO) 0.3 X10'3 (0-0.9); LYMPHOCYTES # (AUTO) 1.2 X10'3 (1.1-4.8); LYMPHOCYTES % (AUTO) 21.1 % (21-51); MEAN CORPUSCULAR HEMOGLOBIN 30.6 PG (27.0-31.0); MEAN CORPUSCULAR HGB CONC 34.1 g/dL (33.0-36.5); MEAN CORPUSCULAR VOLUME 89.9 FL (78-98); MEAN PLATELET VOLUME 7.9 FL (7.4-10.4); MONOCYTES # (AUTO) 0.6 X10'3 (0-0.9); NEUTROPHILS # (AUTO) 3.5 X10'3 (1.8-7.7); NEUTROPHILS % (AUTO) 62.3 % (42-75); PRE OP HEMATOCRIT 35.4 % (35.0-45.0); PRE OP HEMOGLOBIN 12.1 g/dL (12.0-16.0); PRE OP PLATELET COUNT 256 X10'3 (140-440); RED BLOOD COUNT 3.94 X10'6 (4.20-5.60); RED CELL DISTRIBUTION WIDTH 13.4 % (11.5-14.5)
[2021-05-02 12:11] LABS: ALBUMIN 3.2 G/DL (3.4-5.0); ALBUMIN/GLOBULIN RATIO 0.9 (1.1-1.5); ALKALINE PHOSPHATASE 177 IU/L (46-116); BLOOD UREA NITROGEN 23 MG/DL (7-18); BUN/CREATININE RATIO 18.5 (6.6-38.0); C-REACTIVE PROTEIN 0.53 MG/DL (0.0-0.5); CHLORIDE 115 MMOL/L (99-107); CREATININE 1.24 MG/DL (0.40-0.90); PRE OP ALT 29 U/L (30-65); PRE OP ANION GAP 7 (8-16); PRE OP AST 23 U/L (10-37); PRE OP BILIRUB, TOTAL 0.4 MG/DL (0.0-1.0); PRE OP GLUCOSE 105 MG/DL (70-104); PRE OP POTASSIUM 4.6 MMOL/L (3.4-5.1); PRE OP SODIUM 149 MMOL/L (135-145); TOTAL CARBON DIOXIDE 26.6 MMOL/L (24-32); TOTAL PROTEIN 6.9 G/DL (6.4-8.2); eGFR 43 ML/MIN
[2021-05-02 12:30] LABS: CALCIUM 9.6 MG/DL (8.5-10.1)
--- NOTE | 2021-05-02 14:45 | NUR ---
REVIEWED PATIENTS ELEVATED NA WITH ANESTHESIA AND INSTRUCTED PT TO AVOID SALT AND SALTY FOODS AND TO DRINK 2-3 LITERS OF WATER/DAY UNTIL SURGERY DAY. PT UNDERSTOOD. Addendum: 05/02/21 at 1447 by Kayla Gonzalez RN Amended: Links added.
[~2021-05-05] VITALS: Ht 144.8 cm; Wt 40.8 kg
[2021-05-05] VITALS (16 sets, daily range): BP systolic 121–164; BP diastolic 50–98
[~2021-05-05 09:38] MED LIST changes: -CEFD300C3 PO; -LACT1CAP26 PO; -ONDA4TAB6 PO; +cefazolin/dext.iso 2gm/50ml 50 ML IV ONE; +famotidine 20mg tablet PO ONE
[2021-05-05] MEDS: ringers solution, lacted 1,000 ML IV SCH ×3 (11:54→17:51)
[2021-05-05 12:14] LABS: ISTAT HGB 12.2 g/dl (12.0-16.0); ISTAT IONIZED CALCIUM 1.47 mmol/L (1.03-1.32); ISTAT K 4.6 mmol/L (3.5-5.1)
[2021-05-05] MEDS ORDERED: BUPIVAcaine/PF 2.5 mg/ml (0.25%) 30ml vial ONE (13:32)
[2021-05-05] MEDS ORDERED: bacitracin 15gm ointment TP ONE (13:32)
[2021-05-05] MEDS ORDERED: ondansetron/PF 4mg/2ml inj ONE ×2 (14:40→15:09)
[2021-05-05] MEDS ORDERED: fentaNYL/PF 50MCG/1 ML 2ML syringe ONE (14:40)
[2021-05-05] MEDS ORDERED: propofol 10mg/ml 20ml vial IV ONE (14:40)
[2021-05-05] MEDS ORDERED: desflurane 240ml liquid inh. IH ONE (14:40)
[2021-05-05] MEDS ORDERED: LIDOcaine 1%/PF 5ML 10 MG/ML VIAL ONE (14:40)
[2021-05-05] MEDS ORDERED: dexamethasone sod phosphate 10mg/ml inj ONE (14:40)
[2021-05-05] MEDS ORDERED: midazolam 1 mg/ML 2ml injection ONE (14:44)
[2021-05-05] MEDS ORDERED: BUPIVAcaine/PF 7.5mg/ml (0.75%) 10ml vial ONE (15:01)
[2021-05-05] MEDS ORDERED: meperidine/PF 25mg/ml syringe IV PRN ×3 (15:35)
[2021-05-05] MEDS ORDERED: proCHLORperazine 10 MG/2 ml inj IV PRN (15:35)
[2021-05-05] MEDS ORDERED: ondansetron/PF 4mg/2ml inj IV PRN ×2 (15:35→16:35)
[2021-05-05] MEDS ORDERED: morphine 2 MG/ML inj. syringe IV PRN (15:35)
[2021-05-05] MEDS ORDERED: morphine 4 MG/ML inj SYRINge IV PRN (15:35)
--- NOTE | 2021-05-05 16:08 | NUR ---
Received from OR via BRUCE , accompanied by Anesthesiologist DHARA and report given by Anesthesiolgist. PATIENT WITH 20G PIV IN RIGHT UE RUNNING LR AT 100. DENIES PAIN. RICARDO WRAP IN PLACE TO RIGHT RESIDUAL LIMB. NO DRAINAGE PRESENT ON RICARDO BANDAGE. BLAINE BARTON PER REQUEST. Addendum: 05/05/21 at 1626 by Yann Cedeño RN, RN Amended: Links added.
[2021-05-05] MEDS ORDERED: magnesium hydroxide 30ml (MOM) UD suspension PO PRN (16:35)
[2021-05-05] MEDS ORDERED: mag hydrox/Alum hydrox/simeth 30ml oral suspension PO PRN (16:35)
[2021-05-05] MEDS ORDERED: acetaminophen 325mg tablet PO PRN ×2 (16:35)
[2021-05-05] MEDS ORDERED: HYDROcodone/acetaminophen 5mg/325mg tablet PO PRN (16:35)
--- NOTE | 2021-05-05 17:08 | NUR ---
Report called to receiving nurse DOMINIQUE GONZALEZ. Transferred via [facility] WITH 2 BAGS OF Belongings . Special Issues communicated to receiving nurse DOMINIQUE GONZALEZ.WILLARD SAWYER PRESENT TO ASSESS AND ASSIST WITH TRANSFER FROM GURNEY TO BED. POSITIONED TO COMFORT. ELEVATED HOB WELL FOOT OF BED. BED IN LOW POSITION. CALL LIGHT PRESENT AND PATIENT BELONGINS AT BEDSIDE. VSS. CARE TURNED OVER. Addendum: 05/05/21 at 1717 by Yann Cedeño RN RN Amended: Links added.
--- NOTE | 2021-05-05 17:35 | NUR ---
Pt received from recovery, report given by Yann GONZALEZ. pt is A & O x4 and in no apparent distress. pt tucked in, IV fluids are running, surgical site looks dry & intact, pulses palpable. pt is no pain, received ankle block. No N/V, ice chips given no pain meds needed. Pt set for post ops, call light within reach, bed locked and low, foot elevated with a pillow.
[2021-05-05] MEDS: carvedilol 6.25mg tablet PO SCH (17:47)
--- NOTE | 2021-05-05 18:31 | NUR ---
Problems reprioritized. Patient report given, questions answered & plan of care reviewed with Liya/Pricilla RN.
--- NOTE | 2021-05-05 18:36 | NUR ---
Patient in room BRITNI 347B. I have received report from Cherelle GONZALEZ and had the opportunity to ask questions and assume patient care.
--- NOTE | 2021-05-05 18:53 | NUR ---
Patient in room BRITNI 347. I have received report from DOMINIQUE GONZALEZ and had the opportunity to ask questions and assume patient care.
[2021-05-05] MEDS: OMEGA-3/DHA/EPA/FISH OIL 1 EACH CAPSULE.DR PO SCH (19:47)
[2021-05-05] MEDS: docusate sod 100mg capsule PO SCH (19:48)
[2021-05-05] MEDS: HYDROcodone/acetaminophen 10/325mg tab PO PRN (19:58)
[2021-05-05] MEDS ORDERED: insulin Lispro (HumaLOG) vial - multi-dose SQ SCH (20:15)
[2021-05-05] MEDS ORDERED: MESSAGE TO PHARMACY PO ONE (20:15)
[2021-05-05] MEDS ORDERED: dextrose ORAL solution 15 GM/59 ML bottle PO PRN ×2 (20:15)
[2021-05-05] MEDS ORDERED: glucagon, human recombinant 1mg kit SUBCUT PRN (20:15)
[2021-05-05] MEDS ORDERED: dextrose 50%-water 50ml dispensing syringe IV PRN ×2 (20:15)
[2021-05-05] MEDS ORDERED: aspirin 325mg tablet, delayed-release (Ecotrin) PO SCH (21:00)
[2021-05-05] MEDS ORDERED: insulin glargine (Lantus) pen - multi-dose SQ SCH (21:00)
[2021-05-05] MEDS ORDERED: atorvastatin 20mg tablet PO SCH (21:00)
[2021-05-06] VITALS: BP 131/57
[2021-05-06] MEDS: ringers solution, lacted 1,000 ML IV SCH (00:17)
[2021-05-06] MEDS: HYDROcodone/acetaminophen 10/325mg tab PO PRN (00:36)
[2021-05-06] MEDS ORDERED: HYDROmorphone inj. 0.5 MG/0.5 ML DISP.SYRIN IV PRN (02:50)
--- NOTE | 2021-05-06 06:41 | NUR ---
Problems reprioritized. Patient report given, questions answered & plan of care reviewed with DOMINIQUE GONZALEZ.
[2021-05-06 06:48] LABS: BASOPHILS % (AUTO) 0.3 % (0-1); EOSINOPHILS # (AUTO) 0.1 X10'3 (0-0.9); EOSINOPHILS % (AUTO) 1.3 % (0-6); HEMATOCRIT 32.8 % (35.0-45.0); HEMOGLOBIN 11.5 g/dl (12.0-16.0); LYMPHOCYTES # (AUTO) 0.7 X10'3 (1.1-4.8); LYMPHOCYTES % (AUTO) 10.8 % (21-51); MEAN CORPUSCULAR HEMOGLOBIN 31.2 PG (27.0-31.0); MEAN CORPUSCULAR HGB CONC 35.1 g/dL (33.0-36.5); MEAN CORPUSCULAR VOLUME 88.7 FL (78-98); MEAN PLATELET VOLUME 8.1 FL (7.4-10.4); MONOCYTES # (AUTO) 0.3 X10'3 (0-0.9); MONOCYTES % (AUTO) 4.4 % (2-12); NEUTROPHILS # (AUTO) 5.7 X10'3 (1.8-7.7); NEUTROPHILS % (AUTO) 83.2 % (42-75); PLATELET COUNT 229 X10'3 (140-440); RED BLOOD COUNT 3.69 X10'6 (4.20-5.60); WHITE BLOOD COUNT 6.8 X10'3 (4.5-11.0)
[2021-05-06 07:05] LABS: ASPARTATE AMINO TRANSFERASE 26 U/L (10-37); BILIRUBIN,TOTAL 0.6 MG/DL (0.1-1.0); BLOOD UREA NITROGEN 20 MG/DL (7-18); BUN/CREATININE RATIO 16.1 (6.6-38.0); CHLORIDE 105 MMOL/L (99-107); CREATININE 1.24 MG/DL (0.40-0.90); GLUCOSE 294 MG/DL (70-104); SODIUM 138 MMOL/L (135-145); eGFR 43 ML/MIN
[2021-05-06 07:12] LABS: ALANINE AMINOTRANSFERASE 18 U/L (12-78); ALBUMIN 2.7 G/DL (3.4-5.0); ALBUMIN/GLOBULIN RATIO 0.9 (1.1-1.5); ALKALINE PHOSPHATASE 120 IU/L (46-116); CALCIUM 9.3 MG/DL (8.5-10.1); TOTAL PROTEIN 5.8 G/DL (6.4-8.2)
[2021-05-06] MEDS: carvedilol 6.25mg tablet PO SCH (07:30)
[2021-05-06 08:00] VITALS: BP 139/45
[2021-05-06] MEDS ORDERED: furosemide 20MG tablet PO SCH (08:00)
[2021-05-06] MEDS ORDERED: insulin glargine (Lantus) pen - multi-dose SQ SCH (08:00)
[2021-05-06] MEDS ORDERED: lisinopril 10 MG tablet PO SCH (08:00)
[2021-05-06] MEDS ORDERED: doxycycline inj 100 MG in normal saline 100ml IV soln 100 ML IV SCH (08:00)
[2021-05-06] MEDS: OMEGA-3/DHA/EPA/FISH OIL 1 EACH CAPSULE.DR PO SCH (08:00)
[2021-05-06] MEDS ORDERED: potassium chloride 10mEq ER tablet PO SCH (08:00)
[2021-05-06] MEDS: docusate sod 100mg capsule PO SCH (08:00)
[2021-05-06 10:01] LABS: ANION GAP 13 (8-16); POTASSIUM 4.6 MMOL/L (3.5-5.1); TOTAL CARBON DIOXIDE 19.8 MMOL/L (24-32)
[2021-05-06 11:00] VITALS: BP 123/42
--- NOTE | 2021-05-06 14:03 | NUR ---
Pt A & O x4 and in no apparent distress. pt verbalizes understanding of all DC orders. Pt was asked to wait until health care / medical job titles came up to give DC instructions but she refused. pt states they have already received orders from Dr Powers on her pre-op along with antibiotics and pain meds. Pt stated her health care / medical job titles is cominng to get her and he is downstairs already. pt is having a aluminum walker to help her get around at home, refused to stay longer would rather want it delivered to home. pt got dressed and was wheeled to the roundabout. IV removed intact.
[2021-05-09] MEDS ORDERED: (Dulaglutide (Trulicity) 1.5 MG) SQ SCH (08:00)
== END 2021-05-06 14:03 | disposition home or self-care (01) | DRG 617 ==
LOC: PAS 09:38 → SUR 3N 16:37
PROVIDERS: ADMIT Podiatrist Foot & Ankle Surgery; ATTEND Podiatrist Foot & Ankle Surgery
PROC: 0Y6M0ZB Detachment at Right Foot, Partial 2nd Ray, Open Approach (ICD-10-PCS; 2021-05-05)
PROC: 0Y6M0ZC Detachment at Right Foot, Partial 3rd Ray, Open Approach (ICD-10-PCS; 2021-05-05)
PROC: 0Y6M0ZD Detachment at Right Foot, Partial 4th Ray, Open Approach (ICD-10-PCS; 2021-05-05)
PROC: 0Y6M0ZF Detachment at Right Foot, Partial 5th Ray, Open Approach (ICD-10-PCS; 2021-05-05)
PROC: 3E0T3BZ Introduction of Anesthetic Agent into Peripheral Nerves and Plexi, Percutaneous Approach (ICD-10-PCS; 2021-05-05)
PROC: 3E0T33Z Introduction of Anti-inflammatory into Peripheral Nerves and Plexi, Percutaneous Approach (ICD-10-PCS; 2021-05-05)
PROC: 0Y6M0Z9 Detachment at Right Foot, Partial 1st Ray, Open Approach (ICD-10-PCS; principal; 2021-05-05 14:40)
DX: E11.69 Type 2 diabetes mellitus with other specified complication (principal); L03.115 Cellulitis of right lower limb; M86.8X7 Other osteomyelitis, ankle and foot; I10 Essential (primary) hypertension; I49.5 Sick sinus syndrome; E78.5 Hyperlipidemia, unspecified; I25.10 Atherosclerotic heart disease of native coronary artery without angina pectoris; Z79.4 Long term (current) use of insulin; Z95.0 Presence of cardiac pacemaker; Z95.1 Presence of aortocoronary bypass graft
CPT/HCPCS: 36415; 71045; 80047; 80053; 82948; 83036; 83605; 84145; 85025; 85651; 86140; 87040; 87081; 88305; 97110; 97116; 97161; 97530; A4618; A6223; A6253; A6449; A7000; G0378; J1100; J1170; J1815; J2250; J2270; J2405; J2704; J3010; J3490; J7120; L4360; U0003; U0005

== ENCOUNTER 2021-06-08 06:52 | Observation (INO) | payer MEDICARE, MEDICAID ==
[~2021-06-08] VITALS: Ht 144.8 cm; Wt 40.9 kg
[2021-06-08] VITALS (14 sets, daily range): BP systolic 132–172; BP diastolic 46–65
[~2021-06-08 06:52] MED LIST changes: -cefazolin/dext.iso 2gm/50ml 50 ML IV ONE; -famotidine 20mg tablet PO ONE
[2021-06-08] MEDS ORDERED: normal saline 1000ml 1,000 ML IV PRN (07:35)
[2021-06-08] MEDS ORDERED: CEPH500C2 PO (07:51)
[2021-06-08] MEDS ORDERED: midazolam 1 mg/ML 2ml injection ONE (07:51)
[2021-06-08] MEDS ORDERED: LIDOcaine 1% (10mg/ml) 2ml vial ONE (07:51)
[2021-06-08] MEDS ORDERED: heparin 1,000 UNITS/NS 500ml 500 ML ONE (07:52)
[2021-06-08] MEDS ORDERED: iohexol 300mg/ml 100ml inj. ONE ×2 (07:52→11:48)
[2021-06-08] MEDS ORDERED: fentaNYL/PF 50MCG/1 ML 2ML syringe ONE (07:52)
[2021-06-08 08:32] LABS: BASOPHILS # (AUTO) 0.1 X10'3 (0-0.2); BASOPHILS % (AUTO) 0.7 % (0-1); EOSINOPHILS # (AUTO) 0.4 X10'3 (0-0.9); EOSINOPHILS % (AUTO) 5.5 % (0-6); HEMATOCRIT 34.4 % (35.0-45.0); HEMOGLOBIN 11.7 g/dl (12.0-16.0); LYMPHOCYTES # (AUTO) 1.1 X10'3 (1.1-4.8); LYMPHOCYTES % (AUTO) 14.7 % (21-51); MEAN CORPUSCULAR HEMOGLOBIN 29.8 PG (27.0-31.0); MEAN CORPUSCULAR VOLUME 87.9 FL (78-98); MEAN PLATELET VOLUME 7.8 FL (7.4-10.4); MONOCYTES # (AUTO) 0.5 X10'3 (0-0.9); MONOCYTES % (AUTO) 7.3 % (2-12); NEUTROPHILS # (AUTO) 5.4 X10'3 (1.8-7.7); NEUTROPHILS % (AUTO) 71.8 % (42-75); PLATELET COUNT 249 X10'3 (140-440); RED BLOOD COUNT 3.92 X10'6 (4.20-5.60); RED CELL DISTRIBUTION WIDTH 14.3 % (11.5-14.5); WHITE BLOOD COUNT 7.5 X10'3 (4.5-11.0)
[2021-06-08 08:41] LABS: ALBUMIN 3.1 G/DL (3.4-5.0); BLOOD UREA NITROGEN 23 MG/DL (7-18); BUN/CREATININE RATIO 17.4 (6.6-38.0); CREATININE 1.32 MG/DL (0.40-0.90); GLUCOSE 59 MG/DL (70-104); TOTAL CARBON DIOXIDE 24.9 MMOL/L (24-32); eGFR 40 ML/MIN
[2021-06-08] MEDS ORDERED: heparin 1,000unit/ml 10ml vial 10 ML ONE (10:39)
[2021-06-08 11:09] LABS: ANION GAP 9 (8-16); CHLORIDE 108 MMOL/L (99-107); POTASSIUM 4.1 MMOL/L (3.5-5.1); SODIUM 142 MMOL/L (135-145)
[2021-06-08] MEDS ORDERED: clopidogrel 300mg tablet ONE (12:33)
[2021-06-08] MEDS ORDERED: aspirin 81mg tab.chew ONE (12:33)
[2021-06-08] MEDS ORDERED: dextrose 50%-water 50ml dispensing syringe IV ONE (13:16)
--- NOTE | 2021-06-08 16:59 | NUR ---
Received report from LISA Wheeler. Awaiting patient arrival.
[2021-06-08] MEDS: cephalexin 500mg capsule PO SCH ×2 (17:00→20:21)
[2021-06-08] MEDS ORDERED: magnesium hydroxide 30ml (MOM) UD suspension PO PRN (17:10)
[2021-06-08] MEDS ORDERED: ondansetron/PF 4mg/2ml inj IV PRN (17:10)
[2021-06-08] MEDS ORDERED: acetaminophen 325mg tablet PO PRN (17:10)
[2021-06-08] MEDS ORDERED: mag hydrox/Alum hydrox/simeth 30ml oral suspension PO PRN (17:10)
[2021-06-08] MEDS ORDERED: carvedilol 6.25mg tablet PO SCH (17:30)
--- NOTE | 2021-06-08 17:45 | NUR ---
Patient arrived to floor. VSS. no complaints.
--- NOTE | 2021-06-08 17:47 | NUR ---
Placed orders per Dr. Huitron for Plavix 75mg PO QD to begin tomorrow 06/09.
--- NOTE | 2021-06-08 17:50 | NUR ---
PAGER ID: [phone] MESSAGE: Dilip Galvez: patient on Plavix daily. do you still want her to get lovenox as well? thanks, [phone]
[2021-06-08] MEDS: normal saline 1000ml 1,000 ML IV SCH (17:58)
--- NOTE | 2021-06-08 18:33 | NUR ---
Problems reprioritized. Patient report given, questions answered & plan of care reviewed with LISA Camacho.
--- NOTE | 2021-06-08 18:55 | NUR ---
Patient in room MED 314. I have received report from Janice GONZALEZ and had the opportunity to ask questions and assume patient care.
--- NOTE | 2021-06-08 20:09 | NUR ---
Pt missed 1700 dose of Keflex. Not given by previous RN, too close to give now for 2100 dose.
[2021-06-08] MEDS ORDERED: HYDROcodone/acetaminophen 5mg/325mg tablet PO PRN (20:15)
[2021-06-08] MEDS: docusate sod 100mg capsule PO SCH (20:21)
[2021-06-08] MEDS: OMEGA-3/DHA/EPA/FISH OIL 1 EACH CAPSULE.DR PO SCH (20:21)
[2021-06-08] MEDS: HYDROcodone/acetaminophen 10/325mg tab PO PRN (20:22)
[2021-06-08] MEDS ORDERED: aspirin 325mg tablet, delayed-release (Ecotrin) PO SCH (21:00)
[2021-06-08] MEDS ORDERED: atorvastatin 20mg tablet PO SCH (21:00)
[2021-06-09] MEDS: HYDROcodone/acetaminophen 10/325mg tab PO PRN ×2 (00:34→04:38)
[2021-06-09 01:54] VITALS: BP 145/52
[2021-06-09] MEDS: normal saline 1000ml 1,000 ML IV SCH (03:10)
--- NOTE | 2021-06-09 06:42 | NUR ---
Problems reprioritized. Patient report given, questions answered & plan of care reviewed with Tyrel GONZALEZ.
[2021-06-09 07:09] LABS: BASOPHILS % (AUTO) 0.6 % (0-1); EOSINOPHILS # (AUTO) 0.3 X10'3 (0-0.9); EOSINOPHILS % (AUTO) 4.5 % (0-6); HEMATOCRIT 32.6 % (35.0-45.0); HEMOGLOBIN 10.8 g/dl (12.0-16.0); MEAN CORPUSCULAR HEMOGLOBIN 29.8 PG (27.0-31.0); MEAN CORPUSCULAR HGB CONC 33.1 g/dL (33.0-36.5); MEAN PLATELET VOLUME 7.7 FL (7.4-10.4); MONOCYTES # (AUTO) 0.7 X10'3 (0-0.9); MONOCYTES % (AUTO) 9.4 % (2-12); NEUTROPHILS # (AUTO) 5.6 X10'3 (1.8-7.7); NEUTROPHILS % (AUTO) 72.5 % (42-75); PLATELET COUNT 205 X10'3 (140-440); RED BLOOD COUNT 3.62 X10'6 (4.20-5.60); RED CELL DISTRIBUTION WIDTH 14.4 % (11.5-14.5); WHITE BLOOD COUNT 7.7 X10'3 (4.5-11.0)
[2021-06-09 07:46] LABS: ALBUMIN 2.7 G/DL (3.4-5.0); ANION GAP 7 (8-16); BLOOD UREA NITROGEN 18 MG/DL (7-18); BUN/CREATININE RATIO 14.9 (6.6-38.0); CALCIUM 9.9 MG/DL (8.5-10.1); CHLORIDE 110 MMOL/L (99-107); CREATININE 1.21 MG/DL (0.40-0.90); GLUCOSE 89 MG/DL (70-104); POTASSIUM 3.8 MMOL/L (3.5-5.1); SODIUM 141 MMOL/L (135-145); TOTAL CARBON DIOXIDE 24.1 MMOL/L (24-32); eGFR 44 ML/MIN
[2021-06-09] MEDS ORDERED: enoxaparin 40mg/0.4ml syringe SUBCUT SCH (08:00)
[2021-06-09] MEDS ORDERED: potassium chloride 10mEq ER tablet PO SCH (08:00)
[2021-06-09] MEDS ORDERED: lisinopril 10 MG tablet PO SCH (08:00)
[2021-06-09] MEDS ORDERED: clopidogrel 75mg tablet PO SCH (08:00)
[2021-06-09] MEDS ORDERED: furosemide 20MG tablet PO SCH (08:00)
[2021-06-09] MEDS ORDERED: insulin glargine (Lantus) pen - multi-dose SQ SCH (08:00)
[2021-06-09] MEDS ORDERED: ondansetron/PF 4mg/2ml inj ONE (08:42)
[2021-06-09] MEDS: docusate sod 100mg capsule PO SCH (08:57)
[2021-06-09] MEDS: OMEGA-3/DHA/EPA/FISH OIL 1 EACH CAPSULE.DR PO SCH (08:57)
[2021-06-09 08:59] VITALS: BP_SYST 137
[2021-06-09] MEDS: cephalexin 500mg capsule PO SCH (08:59)
[2021-06-09] MEDS ORDERED: ASPI-1071 PO (10:21)
[2021-06-09] MEDS ORDERED: CLOP75TA15 PO (10:21)
--- NOTE | 2021-06-09 10:50 | NUR ---
WOUND INFECTION EDUCATION PROVIDED BY WOUND CARE 1. Patient instructed to call their primary doctor, or go the ED immediately if any of the following symptoms occur: * Increased pain in wound * Increase in drainage from the wound * Redness in the skin surrounding the wound * Warmth in the skin surrounding the wound * Bleeding from the wound * Temperature of 101 or greater 2. If any of these occur while in the hospital tell a nurse immediately. PRESSURE ULCER EDUCATION: DEFINITION: A pressure ulcer is an area of skin that breaks down when you stay in one position too long. The constant pressure against the skin reduces the blood flow to that area and the affected tissue dies. CAUSES: "Being bedridden or in a wheelchair "Fragile skin "Having a chronic condition, such as diabetes or vascular disease "Inability to move certain parts of your body without assistance "Older age "Incontinence of urine or stool SYMPTOMS: "A reddened area that DOES NOT turn white when pressed on - this can be the beginning of a pressure ulcer "A blister, deep sore or a crater - these can be advanced pressure ulcers FIRST AID: "Relieve the pressure on this area "Keep the area clean and dry "Call your primary doctor if you see any of the above symptoms "DO NOT massage the area "DO NOT use a donut shaped or ring shaped pillow- these actually interfere with the blood flow and cause complications PREVENTION: "Check for pressure ulcers everyday "Change position at least every two hours to relieve pressure "Use items that help relieve pressure- pillows, sheepskin, foam padding, and powders. "Keep skin clean and dry "Eat healthy well balanced meals "Exercise daily IF YOU SEE ANY OF THESE SYMPTOMS WHILE IN THE HOSPITAL - TELL YOUR NURSE IMMEDIATELY. IF YOU SEE ANY OF THESE SYMPTOMS WHILE AT HOME OR HAVE ANY QUESTIONS OR CONCERNS ABOUT PRESSURE ULCERS - CALL YOUR PRIMARY DOCTOR IMMEDIATELY. Addendum: 06/09/21 at 1051 by Mounika Hendrickson RN Amended: Links added.
[2021-06-12] MEDS ORDERED: Dulaglutide (Trulicity) 1.5 MG/0.5ML SQ SCH (09:00)
[2021-06-27] MEDS ORDERED: HYDR-3965 PO (13:00)
== END 2021-06-09 11:40 | disposition home health service (06) ==
LOC: SSTAY O 06:52 → MED 3N 17:13
PROVIDERS: ADMIT Family Medicine; ATTEND Preventive Medicine Aerospace Medicine
DX: I70.201 Unspecified atherosclerosis of native arteries of extremities, right leg (principal); I25.10 Atherosclerotic heart disease of native coronary artery without angina pectoris; M86.9 Osteomyelitis, unspecified; E11.51 Type 2 diabetes mellitus with diabetic peripheral angiopathy without gangrene; I10 Essential (primary) hypertension; E78.5 Hyperlipidemia, unspecified; Z89.421 Acquired absence of other right toe(s); Z95.1 Presence of aortocoronary bypass graft
CPT/HCPCS: 36415; 37221; 37224; 80048; 82948; 85025; 85347; 85610; 96361; 96372; 96374; C1725; C1760; C1769; C1874; C1887; C1894; G0378; G0379; J1644; J1650; J2250; J2405; J3010; J3490; J7030; Q9967; 99152; 99153; A6213; C2623; J1815

== ENCOUNTER 2021-08-23 08:52 | Day surgery (SDC) | payer MEDICARE, MEDICAID ==
[2021-08-23] VITALS (9 sets, daily range): BP systolic 145–167; BP diastolic 63–81
[~2021-08-23] VITALS: Ht 144.8 cm; Wt 40.0 kg
[~2021-08-23 08:52] MED LIST changes: -ASPI-1094 PO; +ASPI-611 PO; +CLOP75TA15 PO; +GABA-530 PO; +HYDR-3972 PO; -INSU100I29 SQ; +INSU100I57 SQ; +cefazolin/dext.iso 2gm/50ml IV ONE; +famotidine 20mg tablet PO ONE; +ringers solution, lacted 1,000 ML IV SCH
[2021-08-23 10:30] LABS: PRE OP PROTIME 10.3 SECONDS (9.0-12.0)
[2021-08-23 11:05] LABS: ALBUMIN 3.5 G/DL (3.4-5.0); BLOOD UREA NITROGEN 28 MG/DL (7-18); BUN/CREATININE RATIO 26.4 (6.6-38.0); CALCIUM 10.5 MG/DL (8.5-10.1); CHLORIDE 105 MMOL/L (99-107); CREATININE 1.06 MG/DL (0.40-0.90); PRE OP ALT 72 U/L (30-65); PRE OP ANION GAP 7 (8-16); PRE OP AST 42 U/L (10-37); PRE OP BILIRUB, TOTAL 0.4 MG/DL (0.0-1.0); PRE OP GLUCOSE 160 MG/DL (70-104); PRE OP POTASSIUM 4.7 MMOL/L (3.4-5.1); PRE OP SODIUM 141 MMOL/L (135-145); TOTAL CARBON DIOXIDE 28.8 MMOL/L (24-32); TOTAL PROTEIN 6.9 G/DL (6.4-8.2); eGFR 51 ML/MIN
[2021-08-23] MEDS ORDERED: sevoflurane 250ml liquid IH ONE (11:57)
[2021-08-23] MEDS ORDERED: fentaNYL/PF 50MCG/1 ML 2ML syringe ONE (12:03)
[2021-08-23] MEDS ORDERED: propofol inj 20 ML IV ONE (12:04)
--- NOTE | 2021-08-23 13:01 | NUR ---
Received from OR via BRUCE, accompanied by Anesthesiologist SHANDRA and report given by Anesthesiolgist. PT WITH RIGHT STUMP AND SOCK, 10 LITER MASK, 20 G RIGHT WRIST, LR 100 ML/HR, HAYLEY W[place] INSERTED Addendum: 08/23/21 at 1312 by Esperanza Ward RN Amended: Links added.
[2021-08-23] MEDS ORDERED: morphine 4 MG/ML inj SYRINge IV PRN ×2 (13:35)
[2021-08-23] MEDS ORDERED: meperidine/PF 25mg/ml syringe IV PRN ×5 (13:35)
[2021-08-23] MEDS ORDERED: ondansetron/PF 4mg/2ml inj IV PRN (13:35)
[2021-08-23] MEDS ORDERED: morphine 2 MG/ML inj. syringe IV PRN ×2 (13:35)
[2021-08-23] MEDS ORDERED: proCHLORperazine 10 MG/2 ml inj IV PRN (13:35)
[2021-08-23] MEDS ORDERED: ringers solution, lacted 1,000 ML IV SCH (13:35)
--- NOTE | 2021-08-23 14:46 | NUR ---
ALL DISCHARGE CRITERIA HAS BEEN MET. VSS, PAIN AT A TOLERABLE LEVEL, ABLE TO SAFELY PIVOT AND TRANSFER SELF. IV TAKEN OUT WITHOUT ANY COMPLICATIONS. ALL DISCHARGE INSTRUCTIONS COVERED WITH PATIENT AND ALL QUESTIONS ANSWERED. PATIENT TAKEN OUT VIA WHEELCHAIR TO ESSENCE CARGO WHERE RESEARCH EXECUTIVE DROVE PATIENT TO HER HOME. Addendum: 08/23/21 at 1447 by Esperanza Ward RN Amended: Links added.
== END 2021-08-23 14:01 | disposition home or self-care (01) ==
LOC: PAS 08:52
PROVIDERS: ATTEND Surgery
DX: T87.81 Dehiscence of amputation stump (principal); T87.43 Infection of amputation stump, right lower extremity; E46 Unspecified protein-calorie malnutrition; E10.22 Type 1 diabetes mellitus with diabetic chronic kidney disease; I12.9 Hypertensive chronic kidney disease with stage 1 through stage 4 chronic kidney disease, or unspecified chronic kidney disease; N18.9 Chronic kidney disease, unspecified; E78.5 Hyperlipidemia, unspecified; I25.10 Atherosclerotic heart disease of native coronary artery without angina pectoris; Z95.0 Presence of cardiac pacemaker; Z79.82 Long term (current) use of aspirin; Z79.01 Long term (current) use of anticoagulants; Z79.899 Other long term (current) drug therapy; Z79.4 Long term (current) use of insulin; Z98.890 Other specified postprocedural states; Z89.511 Acquired absence of right leg below knee; Z95.1 Presence of aortocoronary bypass graft; Y83.5 Amputation of limb(s) as the cause of abnormal reaction of the patient, or of later complication, without mention of misadventure at the time of the procedure; Y92.89 Other specified places as the place of occurrence of the external cause
CPT/HCPCS: 11043; 36415; 80053; 85610; 85730; A6222; J0690; J2704; J3010; J7030; J7120; Z7506; Z7508; Z7512; A4618; A6446; A6449; A7000

== ENCOUNTER 2021-09-04 14:54 | Inpatient (IN) | payer MEDICARE, MEDICAID ==
[~2021-09-04] VITALS: Ht 144.8 cm; Wt 40.0 kg
[~2021-09-04 14:54] MED LIST changes: -cefazolin/dext.iso 2gm/50ml IV ONE; -famotidine 20mg tablet PO ONE; -ringers solution, lacted 1,000 ML IV SCH
[2021-09-04] MEDS ORDERED: HYDROcodone/acetaminophen 10/325mg tab PO ONE (15:40)
[2021-09-04] MEDS ORDERED: INSU100I29 SQ (16:03)
[2021-09-04] MEDS ORDERED: LACT1CAP26 PO (16:03)
[2021-09-04] MEDS ORDERED: MULT-1074 PO (16:03)
[2021-09-04] MEDS ORDERED: DOCU100C40 PO (16:03)
[2021-09-04] MEDS ORDERED: ASCO-134 PO (16:03)
[2021-09-04] MEDS ORDERED: CefTRIAXone/D5W-Rocephin 1gm 50 ML IV ONE (16:55)
[2021-09-04] MEDS ORDERED: vancomycin/NS 1 GM ADD-VANTAGE 250 ML IV ONE (16:55)
[2021-09-04 17:02] LABS: BASOPHILS % (AUTO) 0.6 % (0-1); EOSINOPHILS # (AUTO) 0.2 X10'3 (0-0.9); EOSINOPHILS % (AUTO) 4.6 % (0-6); HEMATOCRIT 30.9 % (35.0-45.0); HEMOGLOBIN 10.5 g/dl (12.0-16.0); LYMPHOCYTES # (AUTO) 0.8 X10'3 (1.1-4.8); LYMPHOCYTES % (AUTO) 19.8 % (21-51); MEAN CORPUSCULAR HEMOGLOBIN 29.5 PG (27.0-31.0); MEAN CORPUSCULAR VOLUME 86.7 FL (78-98); MEAN PLATELET VOLUME 7.3 FL (7.4-10.4); MONOCYTES # (AUTO) 0.4 X10'3 (0-0.9); MONOCYTES % (AUTO) 10.7 % (2-12); NEUTROPHILS # (AUTO) 2.6 X10'3 (1.8-7.7); NEUTROPHILS % (AUTO) 64.3 % (42-75); PLATELET COUNT 278 X10'3 (140-440); RED BLOOD COUNT 3.57 X10'6 (4.20-5.60); RED CELL DISTRIBUTION WIDTH 14.6 % (11.5-14.5); WHITE BLOOD COUNT 4.1 X10'3 (4.5-11.0)
[2021-09-04] MEDS ORDERED: potassium CL 10mEq/100ml bag 100 ML IV PRN (17:05)
[2021-09-04] MEDS ORDERED: potassium Cl 20 mEq SR tablet PO PRN ×2 (17:05)
[2021-09-04] MEDS ORDERED: HYDROcodone/acetaminophen 5mg/325mg tablet PO PRN (17:05)
[2021-09-04] MEDS ORDERED: ondansetron/PF 4mg/2ml inj IV PRN (17:05)
[2021-09-04] MEDS ORDERED: morphine 2 MG/ML inj. syringe IV PRN ×2 (17:05)
[2021-09-04] MEDS ORDERED: magnesium 4gm in 100ml NS 100 ML IV PRN (17:05)
[2021-09-04] MEDS ORDERED: magnesium 2GM in 50ml NS 50 ML IV PRN (17:05)
[2021-09-04] MEDS ORDERED: mag hydrox/Alum hydrox/simeth 30ml oral suspension PO PRN (17:05)
[2021-09-04] MEDS ORDERED: magnesium hydroxide 30ml (MOM) UD suspension PO PRN (17:05)
[2021-09-04] MEDS ORDERED: acetaminophen 325mg tablet PO PRN (17:05)
[2021-09-04] MEDS ORDERED: magnesium Cl slow-release 64mg tablet PO PRN (17:05)
[2021-09-04 17:22] LABS: ALANINE AMINOTRANSFERASE 162 U/L (12-78); ALBUMIN/GLOBULIN RATIO 0.9 (1.1-1.5); ALKALINE PHOSPHATASE 540 IU/L (46-116); ANION GAP 9 (8-16); ASPARTATE AMINO TRANSFERASE 213 U/L (10-37); BILIRUBIN,TOTAL 0.4 MG/DL (0.1-1.0); BLOOD UREA NITROGEN 33 MG/DL (7-18); BUN/CREATININE RATIO 26.6 (6.6-38.0); CALCIUM 9.7 MG/DL (8.5-10.1); CHLORIDE 102 MMOL/L (99-107); CREATININE 1.24 MG/DL (0.40-0.90); GLUCOSE 174 MG/DL (70-104); POTASSIUM 4.5 MMOL/L (3.5-5.1); SODIUM 140 MMOL/L (135-145); TOTAL CARBON DIOXIDE 29.4 MMOL/L (24-32); TOTAL PROTEIN 6.5 G/DL (6.4-8.2); eGFR 43 ML/MIN
[2021-09-04 17:31] LABS: MAGNESIUM 1.9 MG/DL (1.5-2.4)
[2021-09-04] MEDS ORDERED: Dulaglutide (Trulicity) 1.5 MG) SQ SCH (17:40)
[2021-09-04] MEDS ORDERED: INSULIN LISPRO 1 UNIT SQ SCH (17:40)
[2021-09-04] MEDS ORDERED: insulin Lispro (HumaLOG) vial - multi-dose SQ SCH (17:57)
[2021-09-04] MEDS: normal saline 1000ml 1,000 ML IV SCH (18:40)
--- NOTE | 2021-09-04 18:58 | NUR ---
SPOKE TO DR ANDERSON CONCERNING PT'S BP. GIVEN VO FOR 1 LITER OF NS BOLUS NOW. ORDER REPEATED BACK FOR ACCURACY.
[2021-09-04] MEDS ORDERED: normal saline 1000ml 1,000 ML IV ONE (19:00)
[2021-09-04] MEDS: HYDROcodone/acetaminophen 10/325mg tab PO PRN (19:19)
[2021-09-04] MEDS ORDERED: dextrose 50%-water 50ml dispensing syringe IV PRN ×2 (19:50)
[2021-09-04] MEDS ORDERED: DEXTROSE 15 GM of carb/4 tabs (each vial/BOTTLE has 4 tablets) PO PRN ×2 (19:50)
[2021-09-04] MEDS ORDERED: MESSAGE TO PHARMACY PO ONE (19:50)
[2021-09-04] MEDS ORDERED: glucagon, human recombinant 1mg kit SUBCUT PRN (19:50)
[2021-09-04] MEDS ORDERED: VANCOMYCIN 1GM/200ML IVPB 200 ML IV SCH (20:00)
[2021-09-04] MEDS: docusate sod 100mg capsule PO SCH ×2 (20:00→21:03)
[2021-09-04] MEDS: K and/or MAG REPLACEMENT MC SCH (20:00)
[2021-09-04 20:52] LABS: HEMOGLOBIN A1C 7.5 % (4.5-6.2)
[2021-09-04] MEDS: insulin glargine (Lantus) pen - multi-dose SQ SCH (20:57)
--- NOTE | 2021-09-04 20:58 | NUR ---
SPOKE TO DR TRUJILLO OVER THE PHONE CONCERNING PT'S DIABETIC HOME MEDS. HE GT T.O. TO NON ADMIN PT'S MEDS SHE DID NOT BRING THEM WITH HER AND INSTEAD ORDER HYPERGLYCEMIC PROTOCOL. PROTOCOL HAS ALREADY BEEN ORDERED.
[2021-09-04] MEDS: OMEGA-3/DHA/EPA/FISH OIL 1 EACH CAPSULE.DR PO SCH (21:03)
[2021-09-04] MEDS: atorvastatin 20mg tablet PO SCH (21:04)
[2021-09-04] MEDS: ascorbic acid 500mg tablet PO SCH (21:04)
[2021-09-05] MEDS: gabapentin 100mg capsule PO SCH ×3 (00:13→16:01)
[2021-09-05 01:56] LABS: ALBUMIN 2.6 G/DL (3.4-5.0); ANION GAP 8 (8-16); BLOOD UREA NITROGEN 29 MG/DL (7-18); BUN/CREATININE RATIO 28.2 (6.6-38.0); CALCIUM 9.1 MG/DL (8.5-10.1); CHLORIDE 108 MMOL/L (99-107); CREATININE 1.03 MG/DL (0.40-0.90); GLUCOSE 102 MG/DL (70-104); POTASSIUM 4.1 MMOL/L (3.5-5.1); SODIUM 142 MMOL/L (135-145); TOTAL CARBON DIOXIDE 25.6 MMOL/L (24-32); eGFR 53 ML/MIN
[2021-09-05 01:59] LABS: BASOPHILS % (AUTO) 0.7 % (0-1); EOSINOPHILS # (AUTO) 0.2 X10'3 (0-0.9); HEMATOCRIT 28.3 % (35.0-45.0); HEMOGLOBIN 9.7 g/dl (12.0-16.0); LYMPHOCYTES % (AUTO) 27.3 % (21-51); MEAN CORPUSCULAR HEMOGLOBIN 29.8 PG (27.0-31.0); MEAN CORPUSCULAR VOLUME 87.6 FL (78-98); MEAN PLATELET VOLUME 7.3 FL (7.4-10.4); MONOCYTES # (AUTO) 0.4 X10'3 (0-0.9); MONOCYTES % (AUTO) 11.8 % (2-12); NEUTROPHILS # (AUTO) 1.9 X10'3 (1.8-7.7); NEUTROPHILS % (AUTO) 55.2 % (42-75); PLATELET COUNT 198 X10'3 (140-440); RED BLOOD COUNT 3.24 X10'6 (4.20-5.60); RED CELL DISTRIBUTION WIDTH 14.5 % (11.5-14.5); WHITE BLOOD COUNT 3.5 X10'3 (4.5-11.0)
[2021-09-05] MEDS: normal saline 1000ml 1,000 ML IV SCH ×2 (03:17→13:05)
[2021-09-05] MEDS: HYDROcodone/acetaminophen 10/325mg tab PO PRN ×3 (04:22→14:17)
--- NOTE | 2021-09-05 06:38 | NUR ---
PATIENT ASLEEP,NS 100 ML RUNNING.
[2021-09-05] MEDS: clopidogrel 75mg tablet PO SCH (07:27)
[2021-09-05] MEDS: lisinopril 10 MG tablet PO SCH (07:28)
[2021-09-05] MEDS: carvedilol 6.25mg tablet PO SCH ×2 (07:28→17:52)
[2021-09-05] MEDS: multivitamins, therapeutics tablet PO SCH (07:28)
[2021-09-05] MEDS: furosemide 20MG tablet PO SCH (07:28)
[2021-09-05] MEDS: OMEGA-3/DHA/EPA/FISH OIL 1 EACH CAPSULE.DR PO SCH ×2 (07:28→20:00)
[2021-09-05] MEDS: ascorbic acid 500mg tablet PO SCH (07:28)
[2021-09-05] MEDS: docusate sod 100mg capsule PO SCH ×3 (07:28→20:00)
[2021-09-05] MEDS: potassium chloride 10mEq ER tablet PO SCH (07:29)
[2021-09-05] MEDS: enoxaparin 40mg/0.4ml syringe SUBCUT SCH (07:29)
[2021-09-05] MEDS: CefTRIAXone/D5W-Rocephin 1gm 50 ML IV SCH (07:29)
[2021-09-05] MEDS: aspirin 81mg, enteric-coated 1 TAB TABLET.DR PO SCH (07:30)
[2021-09-05] MEDS: K and/or MAG REPLACEMENT MC SCH ×2 (08:00→20:00)
--- NOTE | 2021-09-05 14:07 | NUR ---
right bka dressed, picture taken as well for documentation.
[2021-09-05] MEDS: vancomycin inj. 750 MG in normal saline 250ml IV soln 250 ML IV SCH (14:44)
[2021-09-05 23:23] VITALS: BP 151/71
[2021-09-06] MEDS: gabapentin 100mg capsule PO SCH ×4 (00:04→23:29)
[2021-09-06] MEDS: HYDROcodone/acetaminophen 10/325mg tab PO PRN ×3 (00:04→20:33)
[2021-09-06] MEDS: ascorbic acid 500mg tablet PO SCH ×3 (00:04→21:35)
[2021-09-06] MEDS: atorvastatin 20mg tablet PO SCH ×2 (00:04→21:35)
[2021-09-06] MEDS: docusate sod 100mg capsule PO SCH ×5 (00:05→21:36)
[2021-09-06] MEDS: normal saline 1000ml 1,000 ML IV SCH ×4 (00:05→20:33)
[2021-09-06 06:13] LABS: BASOPHILS % (AUTO) 0.6 % (0-1); EOSINOPHILS # (AUTO) 0.2 X10'3 (0-0.9); EOSINOPHILS % (AUTO) 3.9 % (0-6); HEMATOCRIT 35.1 % (35.0-45.0); HEMOGLOBIN 11.6 g/dl (12.0-16.0); LYMPHOCYTES % (AUTO) 17.4 % (21-51); MEAN CORPUSCULAR HEMOGLOBIN 29.9 PG (27.0-31.0); MEAN CORPUSCULAR HGB CONC 33.1 g/dL (33.0-36.5); MEAN CORPUSCULAR VOLUME 90.4 FL (78-98); MEAN PLATELET VOLUME 7.2 FL (7.4-10.4); MONOCYTES # (AUTO) 0.4 X10'3 (0-0.9); MONOCYTES % (AUTO) 7.6 % (2-12); NEUTROPHILS # (AUTO) 4.1 X10'3 (1.8-7.7); NEUTROPHILS % (AUTO) 70.5 % (42-75); PLATELET COUNT 253 X10'3 (140-440); RED BLOOD COUNT 3.88 X10'6 (4.20-5.60); RED CELL DISTRIBUTION WIDTH 14.3 % (11.5-14.5); WHITE BLOOD COUNT 5.8 X10'3 (4.5-11.0)
--- NOTE | 2021-09-06 06:40 | NUR ---
Patient in room BRITNI 353. I have received report from EDMAR GONZALEZ and had the opportunity to ask questions and assume patient care.
[2021-09-06 06:45] LABS: ALBUMIN 2.8 G/DL (3.4-5.0); ANION GAP 13 (8-16); BLOOD UREA NITROGEN 26 MG/DL (7-18); BUN/CREATININE RATIO 21.5 (6.6-38.0); CALCIUM 9.7 MG/DL (8.5-10.1); CHLORIDE 106 MMOL/L (99-107); CREATININE 1.21 MG/DL (0.40-0.90); GLUCOSE 294 MG/DL (70-104); POTASSIUM 4.2 MMOL/L (3.5-5.1); SODIUM 140 MMOL/L (135-145); TOTAL CARBON DIOXIDE 21.1 MMOL/L (24-32); eGFR 44 ML/MIN
--- NOTE | 2021-09-06 06:53 | NUR ---
2100 DOSE LANTUS ON EMAR SHOWS NOT GIVEN. HYATT STATED IN REPORT HE GAVE 12 U LANTUS LAST NIGHT AFTER HIS 0000 BLOOD SUGAR CHECK. NOTIFIED HYATT THE ADMINISTRATION WAS NOT DOCUMENTED.
[2021-09-06 07:17] VITALS: BP 151/71
[2021-09-06] MEDS: K and/or MAG REPLACEMENT MC SCH ×2 (07:28→19:44)
[2021-09-06] MEDS: carvedilol 6.25mg tablet PO SCH ×2 (07:30→17:08)
[2021-09-06 08:00] VITALS: BP 98/96
[2021-09-06] MEDS: lisinopril 10 MG tablet PO SCH (08:00)
[2021-09-06] MEDS: furosemide 20MG tablet PO SCH (08:02)
[2021-09-06] MEDS: clopidogrel 75mg tablet PO SCH (08:02)
[2021-09-06] MEDS: OMEGA-3/DHA/EPA/FISH OIL 1 EACH CAPSULE.DR PO SCH ×2 (08:02→21:35)
[2021-09-06] MEDS: aspirin 81mg, enteric-coated 1 TAB TABLET.DR PO SCH (08:02)
[2021-09-06] MEDS: multivitamins, therapeutics tablet PO SCH (08:02)
[2021-09-06] MEDS: potassium chloride 10mEq ER tablet PO SCH (08:02)
[2021-09-06] MEDS: enoxaparin 40mg/0.4ml syringe SUBCUT SCH (08:04)
[2021-09-06] MEDS: CefTRIAXone/D5W-Rocephin 1gm 50 ML IV SCH (09:32)
[2021-09-06] MEDS: insulin Lispro (HumaLOG) vial - multi-dose SQ SCH ×3 (09:39→22:56)
--- NOTE | 2021-09-06 10:35 | NUR ---
Initial: Pt admitted w/ infection of recent R BKA, wound is open per MD note, photo reviewed. Pt w/ low BMI though current wt not scaled but consistent w/ scaled wts from previous admits. Currently on Carb Controlled diet pending PO intake. Pt can benefit from Tereso Smoothies to assist w/ wound healing. Noted pt w/ hx of DM, A1c 7.5. Last received education by RD last June. Written DM ed w/ RD contact info placed in pt chart. Will continue to monitor. Recs: 1. Continue Carb Controlled diet as tolerated 2. Tereso Smoothies BIDBD; pending MD verification 3. Bowel care per rx 4. Weekly wts Addendum: 09/06/21 at [address] Amended: Links added.
[2021-09-06 11:00] VITALS: BP 119/64
[2021-09-06] MEDS: vancomycin inj. 750 MG in normal saline 250ml IV soln 250 ML IV SCH (14:33)
--- NOTE | 2021-09-06 14:54 | NUR ---
F/u: Pt seen at bedside reports difficulty chewing d/t being edentulous and requests soft to chew foods. Additional food preferences were obtained and d/w dietary, see below. Pt provided with RD contact information and encouraged to reach out if needed. Will remain available. Recs: 1. Continue Carb Controlled diet as tolerated 2. Tereso Smoothies BIDBD; pending MD verification 3. [place] food preferences: soft to chew food; whole milk TIDWM; No squash, broccoli, cauliflower, brussel sprouts, green salad, or raisins; Likes egg salad 4. Bowel care per rx 5. Scaled weight this admit; weekly scaled weights thereafter Addendum: 09/06/21 at [address] Amended: Links added.
[2021-09-06] MEDS: JUVEN Smoothie Arginine/Glut./Ca2+Bmb (Juven 19.3pkt) 240ml cup PO SCH (17:32)
[2021-09-06 18:00] VITALS: BP 106/44
--- NOTE | 2021-09-06 18:08 | NUR ---
Problems reprioritized. Patient report given, questions answered & plan of care reviewed with EDMAR GONZALEZ.
[2021-09-06] MEDS ORDERED: vancomycin/NS 1 GM ADD-VANTAGE 250 ML IV SCH (20:00)
[2021-09-06] MEDS: insulin glargine (Lantus) pen - multi-dose SQ SCH ×2 (22:52)
[2021-09-07 03:29] VITALS: BP 168/64
[2021-09-07] MEDS: normal saline 1000ml 1,000 ML IV SCH ×2 (06:04→17:28)
[2021-09-07 06:15] LABS: BASOPHILS % (AUTO) 0.9 % (0-1); EOSINOPHILS # (AUTO) 0.3 X10'3 (0-0.9); EOSINOPHILS % (AUTO) 7.9 % (0-6); HEMATOCRIT 29.2 % (35.0-45.0); HEMOGLOBIN 9.8 g/dl (12.0-16.0); LYMPHOCYTES # (AUTO) 1.2 X10'3 (1.1-4.8); LYMPHOCYTES % (AUTO) 32.4 % (21-51); MEAN CORPUSCULAR HEMOGLOBIN 29.6 PG (27.0-31.0); MEAN CORPUSCULAR HGB CONC 33.6 g/dL (33.0-36.5); MEAN CORPUSCULAR VOLUME 88.1 FL (78-98); MEAN PLATELET VOLUME 7.4 FL (7.4-10.4); MONOCYTES # (AUTO) 0.4 X10'3 (0-0.9); MONOCYTES % (AUTO) 10.7 % (2-12); NEUTROPHILS # (AUTO) 1.8 X10'3 (1.8-7.7); NEUTROPHILS % (AUTO) 48.1 % (42-75); PLATELET COUNT 203 X10'3 (140-440); RED BLOOD COUNT 3.31 X10'6 (4.20-5.60); RED CELL DISTRIBUTION WIDTH 14.3 % (11.5-14.5); WHITE BLOOD COUNT 3.7 X10'3 (4.5-11.0)
--- NOTE | 2021-09-07 06:32 | NUR ---
Patient in room BRITNI 353. I have received report from LISA Bradley and had the opportunity to ask questions and assume patient care.
[2021-09-07] MEDS: HYDROcodone/acetaminophen 10/325mg tab PO PRN ×4 (06:43→20:30)
[2021-09-07 06:49] LABS: ALBUMIN 2.2 G/DL (3.4-5.0); ANION GAP 7 (8-16); BLOOD UREA NITROGEN 22 MG/DL (7-18); CALCIUM 9.3 MG/DL (8.5-10.1); CHLORIDE 109 MMOL/L (99-107); GLUCOSE 239 MG/DL (70-104); SODIUM 139 MMOL/L (135-145); TOTAL CARBON DIOXIDE 23.4 MMOL/L (24-32); eGFR 55 ML/MIN
[2021-09-07 07:00] VITALS: BP 130/43
[2021-09-07] MEDS: docusate sod 100mg capsule PO SCH ×4 (08:00→20:29)
[2021-09-07] MEDS: K and/or MAG REPLACEMENT MC SCH ×2 (08:00→20:00)
[2021-09-07] MEDS: CefTRIAXone/D5W-Rocephin 1gm 50 ML IV SCH (08:16)
[2021-09-07] MEDS: carvedilol 6.25mg tablet PO SCH ×2 (08:17→17:28)
[2021-09-07] MEDS: clopidogrel 75mg tablet PO SCH (08:17)
[2021-09-07] MEDS: potassium chloride 10mEq ER tablet PO SCH (08:17)
[2021-09-07] MEDS: multivitamins, therapeutics tablet PO SCH (08:17)
[2021-09-07] MEDS: OMEGA-3/DHA/EPA/FISH OIL 1 EACH CAPSULE.DR PO SCH ×2 (08:17→20:30)
[2021-09-07] MEDS: aspirin 81mg, enteric-coated 1 TAB TABLET.DR PO SCH (08:17)
[2021-09-07] MEDS: lisinopril 10 MG tablet PO SCH (08:17)
[2021-09-07] MEDS: furosemide 20MG tablet PO SCH (08:17)
[2021-09-07] MEDS: gabapentin 100mg capsule PO SCH ×2 (08:17→16:16)
[2021-09-07] MEDS: ascorbic acid 500mg tablet PO SCH ×2 (08:17→20:30)
[2021-09-07] MEDS: JUVEN Smoothie Arginine/Glut./Ca2+Bmb (Juven 19.3pkt) 240ml cup PO SCH ×2 (08:18→18:00)
[2021-09-07] MEDS: enoxaparin 30mg/0.3ml syringe SUBCUT SCH (08:22)
[2021-09-07] MEDS: insulin Lispro (HumaLOG) vial - multi-dose SQ SCH ×2 (08:26→14:07)
[2021-09-07 12:00] VITALS: BP 139/68
[2021-09-07] MEDS: vancomycin inj. 750 MG in normal saline 250ml IV soln 250 ML IV SCH (14:00)
--- NOTE | 2021-09-07 14:32 | NUR ---
WOUND VAC EDUCATION PROVIDED BY WOUND CARE 1. Patient instructed to call the Wound Center or their Home Health Agency immediately if: * They notice a change in the color or amount of the fluid in the canister. * Their wound looks more red than usual or has a foul smell. * The skin around their wound looks reddened or irritated. * The dressing feels loose or appears to be loose. * They experience any increase or changes in their pain. * The alarm will not turn off. 2. Patient instructed that they should not be disconnected from suction for more than 2 hours at a time. * If they are not able to get the suction back on, they need to remove the dressing and take all of the foam out of the wound. * Then moisten sterile gauze with normal saline and place on/in the wound. * Change the dressing once a day until arrangements have been made to replace the wound vac dressing. 3. Patient instructed to turn the wound vac machine OFF and call 911 or go to the ED immediately if their canister fills rapidly with blood. 4. If any of these occur while in the hospital tell a nurse immediately. Addendum: 09/07/21 at 1435 by Janel Morales RN Amended: Links added.
[2021-09-07 18:00] VITALS: BP 111/48
--- NOTE | 2021-09-07 18:25 | NUR ---
Problems reprioritized. Patient report given, questions answered & plan of care reviewed with LISA Leyva.
[2021-09-07] MEDS: atorvastatin 20mg tablet PO SCH (20:30)
[2021-09-07] MEDS: insulin glargine (Lantus) pen - multi-dose SQ SCH (21:00)
[2021-09-08] VITALS: BP 148/50
[2021-09-08] MEDS: gabapentin 100mg capsule PO SCH ×2 (01:30→07:49)
--- NOTE | 2021-09-08 06:11 | NUR ---
Patient in room BRITNI 353. I have received report from LISA Leyva and had the opportunity to ask questions and assume patient care.
[2021-09-08 06:15] LABS: BASOPHILS % (AUTO) 0.8 % (0-1); EOSINOPHILS # (AUTO) 0.3 X10'3 (0-0.9); EOSINOPHILS % (AUTO) 7.3 % (0-6); HEMATOCRIT 29.8 % (35.0-45.0); HEMOGLOBIN 10.1 g/dl (12.0-16.0); LYMPHOCYTES # (AUTO) 1.2 X10'3 (1.1-4.8); LYMPHOCYTES % (AUTO) 33.4 % (21-51); MEAN CORPUSCULAR HEMOGLOBIN 29.7 PG (27.0-31.0); MEAN CORPUSCULAR HGB CONC 33.9 g/dL (33.0-36.5); MEAN CORPUSCULAR VOLUME 87.5 FL (78-98); MEAN PLATELET VOLUME 7.2 FL (7.4-10.4); MONOCYTES # (AUTO) 0.3 X10'3 (0-0.9); MONOCYTES % (AUTO) 8.3 % (2-12); NEUTROPHILS # (AUTO) 1.9 X10'3 (1.8-7.7); NEUTROPHILS % (AUTO) 50.2 % (42-75); PLATELET COUNT 223 X10'3 (140-440); RED CELL DISTRIBUTION WIDTH 14.4 % (11.5-14.5); WHITE BLOOD COUNT 3.7 X10'3 (4.5-11.0)
[2021-09-08 06:23] LABS: ALBUMIN 2.3 G/DL (3.4-5.0); ANION GAP 6 (8-16); BLOOD UREA NITROGEN 16 MG/DL (7-18); CALCIUM 9.4 MG/DL (8.5-10.1); CHLORIDE 109 MMOL/L (99-107); CREATININE 1.07 MG/DL (0.40-0.90); GLUCOSE 283 MG/DL (70-104); POTASSIUM 4.1 MMOL/L (3.5-5.1); SODIUM 141 MMOL/L (135-145); TOTAL CARBON DIOXIDE 25.8 MMOL/L (24-32); eGFR 51 ML/MIN
--- NOTE | 2021-09-08 06:38 | NUR ---
Report given to Suzie GONZALEZ
[2021-09-08] MEDS: OMEGA-3/DHA/EPA/FISH OIL 1 EACH CAPSULE.DR PO SCH (07:47)
[2021-09-08] MEDS: multivitamins, therapeutics tablet PO SCH (07:49)
[2021-09-08] MEDS: clopidogrel 75mg tablet PO SCH (07:49)
[2021-09-08] MEDS: HYDROcodone/acetaminophen 10/325mg tab PO PRN ×2 (07:49→14:21)
[2021-09-08] MEDS: potassium chloride 10mEq ER tablet PO SCH (07:49)
[2021-09-08] MEDS: ascorbic acid 500mg tablet PO SCH (07:50)
[2021-09-08] MEDS: CefTRIAXone/D5W-Rocephin 1gm 50 ML IV SCH (07:50)
[2021-09-08] MEDS: aspirin 81mg, enteric-coated 1 TAB TABLET.DR PO SCH (07:50)
[2021-09-08] MEDS: docusate sod 100mg capsule PO SCH ×2 (07:50→08:00)
[2021-09-08] MEDS: furosemide 20MG tablet PO SCH (07:50)
[2021-09-08] MEDS: enoxaparin 30mg/0.3ml syringe SUBCUT SCH (07:51)
[2021-09-08] MEDS: carvedilol 6.25mg tablet PO SCH (07:53)
[2021-09-08] MEDS: lisinopril 10 MG tablet PO SCH (07:54)
[2021-09-08 07:59] VITALS: BP 151/74
[2021-09-08] MEDS: K and/or MAG REPLACEMENT MC SCH (08:00)
[2021-09-08] MEDS: JUVEN Smoothie Arginine/Glut./Ca2+Bmb (Juven 19.3pkt) 240ml cup PO SCH (09:07)
[2021-09-08] MEDS: insulin Lispro (HumaLOG) vial - multi-dose SQ SCH ×2 (09:10→14:20)
[2021-09-08 11:30] VITALS: BP 93/66
[2021-09-08] MEDS ORDERED: VANCOMYCIN LEVEL IV ONE (13:30)
[2021-09-08] MEDS: vancomycin inj. 750 MG in normal saline 250ml IV soln 250 ML IV SCH (14:14)
--- NOTE | 2021-09-08 15:45 | NUR ---
Report called to LISA Maurer at [facility]. Pt discharged and transported via [facility]. Wound vac sent with pt, per window caser instructions. Midline to left upper arm placed prior to discharge.
== END 2021-09-08 15:34 | DRG 564 ==
LOC: ER 14:55 → ED HOLD 17:07 → SUR 3N 09-05 23:15
PROVIDERS: ADMIT Family Medicine; ATTEND Family Medicine
PROC: 05HC33Z Insertion of Infusion Device into Left Basilic Vein, Percutaneous Approach (ICD-10-PCS; principal; 2021-09-08)
PROC: B54NZZA Ultrasonography of Left Upper Extremity Veins, Guidance (ICD-10-PCS; 2021-09-08)
DX: T87.43 Infection of amputation stump, right lower extremity (principal); E43 Unspecified severe protein-calorie malnutrition; Z68.1 Body mass index [BMI] 19.9 or less, adult; Z20.822 Contact with and (suspected) exposure to COVID-19; I25.10 Atherosclerotic heart disease of native coronary artery without angina pectoris; E78.5 Hyperlipidemia, unspecified; N18.9 Chronic kidney disease, unspecified; E11.22 Type 2 diabetes mellitus with diabetic chronic kidney disease; E11.51 Type 2 diabetes mellitus with diabetic peripheral angiopathy without gangrene; E78.00 Pure hypercholesterolemia, unspecified; I12.9 Hypertensive chronic kidney disease with stage 1 through stage 4 chronic kidney disease, or unspecified chronic kidney disease; Y83.5 Amputation of limb(s) as the cause of abnormal reaction of the patient, or of later complication, without mention of misadventure at the time of the procedure; Y92.89 Other specified places as the place of occurrence of the external cause; Z95.1 Presence of aortocoronary bypass graft; Z80.8 Family history of malignant neoplasm of other organs or systems
CPT/HCPCS: 36410; 36415; 76942; 80048; 80053; 82948; 83036; 83735; 84145; 85025; 85651; 87040; 87081; 87635; 99285; G0378; J0696; J1650; J1815; J3370; J3490; J7030; J7050

== ENCOUNTER 2021-11-05 16:46 | Emergency (ER) | payer MEDICARE, MEDICAID ==
[~2021-11-05] VITALS: Ht 144.8 cm; Wt 40.9 kg
[~2021-11-05 16:46] MED LIST changes: +ASCO-134 PO; +DOCU100C40 PO; +INSU100I29 SQ; +LACT1CAP26 PO; +MULT-1074 PO
[2021-11-05] MEDS: normal saline 500ml IV soln 500 ML IV SCH ×6 (17:30→22:28)
[2021-11-05 17:53] LABS: ALANINE AMINOTRANSFERASE 29 U/L (12-78); ALBUMIN 3.3 G/DL (3.4-5.0); ALBUMIN/GLOBULIN RATIO 0.9 (1.1-1.5); ALKALINE PHOSPHATASE 205 IU/L (46-116); ANION GAP 7 (8-16); ASPARTATE AMINO TRANSFERASE 20 U/L (10-37); BILIRUBIN,TOTAL 0.5 MG/DL (0.1-1.0); BLOOD UREA NITROGEN 21 MG/DL (7-18); BUN/CREATININE RATIO 16.4 (6.6-38.0); CALCIUM 9.6 MG/DL (8.5-10.1); CHLORIDE 99 MMOL/L (99-107); CREATININE 1.28 MG/DL (0.40-0.90); POTASSIUM 4.1 MMOL/L (3.5-5.1); SODIUM 136 MMOL/L (135-145); TOTAL CARBON DIOXIDE 30.5 MMOL/L (24-32); TOTAL PROTEIN 6.9 G/DL (6.4-8.2); eGFR 41 ML/MIN
[2021-11-05 17:54] LABS: HEMOGLOBIN 12.1 g/dl (12.0-16.0); MEAN CORPUSCULAR HEMOGLOBIN 28.9 PG (27.0-31.0); MEAN PLATELET VOLUME 7.9 FL (7.4-10.4); WHITE BLOOD COUNT 5.3 X10'3 (4.5-11.0)
[2021-11-05 17:55] LABS: GLUCOSE 466 MG/DL (70-104)
[2021-11-05 17:56] LABS: BASOPHILS % (AUTO) 0.6 % (0-1); EOSINOPHILS # (AUTO) 0.2 X10'3 (0-0.9); EOSINOPHILS % (AUTO) 4.6 % (0-6); HEMATOCRIT 35.8 % (35.0-45.0); LYMPHOCYTES # (AUTO) 1.4 X10'3 (1.1-4.8); LYMPHOCYTES % (AUTO) 26.7 % (21-51); MEAN CORPUSCULAR HGB CONC 33.7 g/dL (33.0-36.5); MEAN CORPUSCULAR VOLUME 85.7 FL (78-98); MONOCYTES # (AUTO) 0.4 X10'3 (0-0.9); MONOCYTES % (AUTO) 8.1 % (2-12); NEUTROPHILS # (AUTO) 3.2 X10'3 (1.8-7.7); PLATELET COUNT 247 X10'3 (140-440); RED BLOOD COUNT 4.18 X10'6 (4.20-5.60); RED CELL DISTRIBUTION WIDTH 14.9 % (11.5-14.5)
--- NOTE | 2021-11-05 18:30 | NUR ---
Assumed care from Damaris Diallo. Put pt. on and off of commode at bedside. No issues.
[2021-11-05] MEDS ORDERED: insulin regular, human 10 units/0.1 ml syringe SQ ONE (22:05)
[2021-11-05 23:15] VITALS: BP 135/55
== END 2021-11-05 23:17 | disposition home or self-care (01) ==
LOC: ER 16:46
DX: E11.65 Type 2 diabetes mellitus with hyperglycemia (principal); I25.10 Atherosclerotic heart disease of native coronary artery without angina pectoris; E78.00 Pure hypercholesterolemia, unspecified; I12.9 Hypertensive chronic kidney disease with stage 1 through stage 4 chronic kidney disease, or unspecified chronic kidney disease; E11.22 Type 2 diabetes mellitus with diabetic chronic kidney disease; N18.9 Chronic kidney disease, unspecified; Z95.0 Presence of cardiac pacemaker; Z98.890 Other specified postprocedural states; Z79.82 Long term (current) use of aspirin; Z79.4 Long term (current) use of insulin; Z79.899 Other long term (current) drug therapy
CPT/HCPCS: 36415; 80053; 82948; 85025; 96372; 99285; J1815; J7040

== ENCOUNTER 2021-11-13 16:51 | Emergency (ER) | payer MEDICARE, MEDICAID ==
[~2021-11-13] VITALS: Ht 144.8 cm; Wt 38.6 kg
[2021-11-13] MEDS ORDERED: insulin regular, human 10 units/0.1 ml syringe SQ ONE (18:30)
[2021-11-13 18:54] VITALS: BP 112/72
== END 2021-11-13 18:57 | disposition home or self-care (01) ==
LOC: ER 16:52
DX: I13.10 Hypertensive heart and chronic kidney disease without heart failure, with stage 1 through stage 4 chronic kidney disease, or unspecified chronic kidney disease (principal); E11.22 Type 2 diabetes mellitus with diabetic chronic kidney disease; N18.9 Chronic kidney disease, unspecified; E78.00 Pure hypercholesterolemia, unspecified
CPT/HCPCS: 82948; 99283; J1815

== ENCOUNTER 2022-04-08 17:12 | Emergency (ER) | payer MEDICARE, MEDICAID ==
[~2022-04-08] VITALS: Ht 144.8 cm; Wt 40.5 kg
[2022-04-08] MEDS ORDERED: insulin regular, human 10 units/0.1 ml syringe SQ ONE ×2 (18:25→19:30)
[2022-04-08] MEDS ORDERED: normal saline 1000ML IV soln IVB ONE (18:25)
[2022-04-08 19:12] LABS: BASOPHILS # (AUTO) 0.1 X10'3 (0-0.2); BASOPHILS % (AUTO) 0.8 % (0-1); EOSINOPHILS # (AUTO) 0.3 X10'3 (0-0.9); EOSINOPHILS % (AUTO) 4.4 % (0-6); HEMATOCRIT 38.2 % (35.0-45.0); HEMOGLOBIN 12.8 g/dl (12.0-16.0); LYMPHOCYTES % (AUTO) 15.9 % (21-51); MEAN CORPUSCULAR HEMOGLOBIN 29.8 PG (27.0-31.0); MEAN CORPUSCULAR HGB CONC 33.4 g/dL (33.0-36.5); MEAN CORPUSCULAR VOLUME 89.2 FL (78-98); MEAN PLATELET VOLUME 9.7 FL (7.4-10.4); MONOCYTES # (AUTO) 0.5 X10'3 (0-0.9); MONOCYTES % (AUTO) 8.3 % (2-12); NEUTROPHILS # (AUTO) 4.2 X10'3 (1.8-7.7); NEUTROPHILS % (AUTO) 70.6 % (42-75); PLATELET COUNT 152 X10'3 (140-440); RED BLOOD COUNT 4.29 X10'6 (4.20-5.60); RED CELL DISTRIBUTION WIDTH 13.9 % (11.5-14.5)
[2022-04-08 19:23] LABS: ALANINE AMINOTRANSFERASE 92 U/L (12-78); ALBUMIN 3.3 G/DL (3.4-5.0); ALBUMIN/GLOBULIN RATIO 1.1 (1.1-1.5); ALKALINE PHOSPHATASE 243 IU/L (46-116); ANION GAP 7 (8-16); ASPARTATE AMINO TRANSFERASE 36 U/L (10-37); BILIRUBIN,TOTAL 0.6 MG/DL (0.1-1.0); BLOOD UREA NITROGEN 35 MG/DL (7-18); BUN/CREATININE RATIO 23.3 (6.6-38.0); CALCIUM 9.4 MG/DL (8.5-10.1); CHLORIDE 104 MMOL/L (99-107); MAGNESIUM 2.2 MG/DL (1.5-2.4); POTASSIUM 4.2 MMOL/L (3.5-5.1); SODIUM 135 MMOL/L (135-145); TOTAL CARBON DIOXIDE 24.5 MMOL/L (24-32); TOTAL PROTEIN 6.2 G/DL (6.4-8.2); eGFR 34 ML/MIN
[2022-04-08 19:28] LABS: GLUCOSE 485 MG/DL (70-104)
[2022-04-08 21:24] LABS: CLARITY,URINE CLEAR (Clear); COLOR,URINE YELLOW (Yellow); GLUCOSE, URINE >=1000 mg/dl (Neg); KETONES,URINE NEGATIVE (Neg); LEUKOCYTE ESTERASE ,URINE NEGATIVE (Neg); NITRITES, URINE NEGATIVE (Neg); OCCULT BLOOD,URINE MODERATE (Neg); PH,URINE 5.5 (4.8-8.0); PROTEIN,URINE NEGATIVE (Neg); UROBILINOGEN,URINE 0.2 E.U/dL (0.2-1.0)
[2022-04-08 21:25] LABS: UA COLLECTION TYPE CLN CATCH MIDSTREAM
[2022-04-08 21:34] LABS: BACTERIA,URINE NONE SEEN /HPF (Neg); RBC,URINE 20-50 /HPF (0-2); WBC,URINE 0-4 /HPF (0-4)
[2022-04-08 21:35] LABS: MUCUS STRANDS NONE SEEN /LPF (Neg); SQUAMOUS EPITHELIAL CELL,UR FEW /LPF (FEW)
[2022-04-09] VITALS: BP 118/72
== END 2022-04-08 22:00 | disposition home or self-care (01) ==
LOC: ER 17:13
DX: E11.65 Type 2 diabetes mellitus with hyperglycemia (principal); I25.10 Atherosclerotic heart disease of native coronary artery without angina pectoris; E78.00 Pure hypercholesterolemia, unspecified; I12.9 Hypertensive chronic kidney disease with stage 1 through stage 4 chronic kidney disease, or unspecified chronic kidney disease; E11.22 Type 2 diabetes mellitus with diabetic chronic kidney disease; N18.9 Chronic kidney disease, unspecified; Z86.2 Personal history of diseases of the blood and blood-forming organs and certain disorders involving the immune mechanism; Z95.0 Presence of cardiac pacemaker; Z98.890 Other specified postprocedural states; Z79.82 Long term (current) use of aspirin; Z79.4 Long term (current) use of insulin; Z79.899 Other long term (current) drug therapy
CPT/HCPCS: 36415; 80053; 81001; 82948; 83735; 85025; 87088; 96360; 96361; 99285; J1815; J7030

== ENCOUNTER 2022-04-09 21:50 | Emergency (ER) | payer MEDICARE, MEDICAID ==
[~2022-04-09] VITALS: Ht 144.8 cm; Wt 131.0 kg
[2022-04-09 22:36] LABS: BASOPHILS % (AUTO) 0.6 % (0-1); EOSINOPHILS # (AUTO) 0.2 X10'3 (0-0.9); EOSINOPHILS % (AUTO) 4.1 % (0-6); HEMATOCRIT 38.6 % (35.0-45.0); HEMOGLOBIN 12.7 g/dl (12.0-16.0); LYMPHOCYTES # (AUTO) 1.1 X10'3 (1.1-4.8); LYMPHOCYTES % (AUTO) 23.5 % (21-51); MEAN CORPUSCULAR HEMOGLOBIN 29.7 PG (27.0-31.0); MEAN CORPUSCULAR VOLUME 90.1 FL (78-98); MEAN PLATELET VOLUME 9.3 FL (7.4-10.4); MONOCYTES # (AUTO) 0.3 X10'3 (0-0.9); MONOCYTES % (AUTO) 7.2 % (2-12); NEUTROPHILS % (AUTO) 64.6 % (42-75); PLATELET COUNT 142 X10'3 (140-440); RED BLOOD COUNT 4.28 X10'6 (4.20-5.60); RED CELL DISTRIBUTION WIDTH 14.1 % (11.5-14.5); WHITE BLOOD COUNT 4.7 X10'3 (4.5-11.0)
[2022-04-09 22:46] LABS: ALANINE AMINOTRANSFERASE 84 U/L (12-78); ALBUMIN 3.4 G/DL (3.4-5.0); ALBUMIN/GLOBULIN RATIO 1.1 (1.1-1.5); ALKALINE PHOSPHATASE 224 IU/L (46-116); ANION GAP 7 (8-16); ASPARTATE AMINO TRANSFERASE 37 U/L (10-37); BILIRUBIN,TOTAL 0.5 MG/DL (0.1-1.0); BLOOD UREA NITROGEN 32 MG/DL (7-18); BUN/CREATININE RATIO 22.4 (6.6-38.0); CALCIUM 9.4 MG/DL (8.5-10.1); CHLORIDE 107 MMOL/L (99-107); CREATININE 1.43 MG/DL (0.40-0.90); GLUCOSE 443 MG/DL (70-104); POTASSIUM 4.4 MMOL/L (3.5-5.1); SODIUM 137 MMOL/L (135-145); TOTAL CARBON DIOXIDE 22.8 MMOL/L (24-32); TOTAL PROTEIN 6.4 G/DL (6.4-8.2); eGFR 36 ML/MIN
[2022-04-09 23:03] LABS: CLARITY,URINE CLEAR (Clear); COLOR,URINE YELLOW (Yellow); GLUCOSE, URINE >=1000 mg/dl (Neg); KETONES,URINE NEGATIVE (Neg); LEUKOCYTE ESTERASE ,URINE NEGATIVE (Neg); NITRITES, URINE NEGATIVE (Neg); OCCULT BLOOD,URINE TRACE-INTACT (Neg); PH,URINE 5.5 (4.8-8.0); PROTEIN,URINE 30 mg/dl (Neg); UROBILINOGEN,URINE 0.2 E.U/dL (0.2-1.0)
[2022-04-09 23:11] LABS: UA COLLECTION TYPE STRAIGHT CATH
[2022-04-09 23:13] LABS: BACTERIA,URINE NONE SEEN /HPF (Neg); RBC,URINE 0-2 /HPF (0-2); WBC,URINE 0-4 /HPF (0-4)
[2022-04-09 23:14] LABS: SQUAMOUS EPITHELIAL CELL,UR NONE SEEN /LPF (FEW)
[2022-04-09] MEDS ORDERED: insulin regular, human 10 units/0.1 ml syringe SQ ONE (23:35)
[2022-04-10 00:40] LABS: COLOR,URINE YELLOW (Yellow); GLUCOSE, URINE >=1000 mg/dl (Neg); KETONES,URINE NEGATIVE (Neg); LEUKOCYTE ESTERASE ,URINE NEGATIVE (Neg); NITRITES, URINE NEGATIVE (Neg); OCCULT BLOOD,URINE TRACE-INTACT (Neg); PH,URINE 5.5 (4.8-8.0); PROTEIN,URINE TRACE mg/dl (Neg); UROBILINOGEN,URINE 0.2 E.U/dL (0.2-1.0)
[2022-04-10 00:41] LABS: UA COLLECTION TYPE STRAIGHT CATH
[2022-04-10 00:46] LABS: CLARITY,URINE CLEAR (Clear); RBC,URINE 0-2 /HPF (0-2); WBC,URINE 0-4 /HPF (0-4)
[2022-04-10 00:49] LABS: SQUAMOUS EPITHELIAL CELL,UR FEW /LPF (FEW)
[2022-04-10 00:50] LABS: BACTERIA,URINE FEW /HPF (Neg)
[2022-04-10] MEDS ORDERED: insulin regular, human 10 units/0.1 ml syringe SQ ONE (01:45)
[2022-04-10 05:00] VITALS: BP 136/76
--- NOTE | 2022-04-10 06:25 | NUR ---
caregiver Justen called. informed that pt will be going home via [facility]. his phone number is [phone]
--- NOTE | 2022-04-10 06:30 | NUR ---
first contact with pt, found high fowlers in bed, asleep. pt easily arousable. bs 109. pt states she drank two orange juices at 0500 this morning. awaiting [facility] at 0700 for transport home. no distress.
--- NOTE | 2022-04-10 07:30 | NUR ---
aram carge here to picker and sorter load and unload pt. transferred to wheelchair without incident. caregiver updated.
== END 2022-04-10 07:40 | disposition home or self-care (01) ==
LOC: ER 21:52
DX: E11.65 Type 2 diabetes mellitus with hyperglycemia (principal); I25.10 Atherosclerotic heart disease of native coronary artery without angina pectoris; E78.00 Pure hypercholesterolemia, unspecified; I12.9 Hypertensive chronic kidney disease with stage 1 through stage 4 chronic kidney disease, or unspecified chronic kidney disease; E11.22 Type 2 diabetes mellitus with diabetic chronic kidney disease; N18.9 Chronic kidney disease, unspecified; Z86.2 Personal history of diseases of the blood and blood-forming organs and certain disorders involving the immune mechanism; Z95.0 Presence of cardiac pacemaker; Z98.890 Other specified postprocedural states; Z79.82 Long term (current) use of aspirin; Z79.4 Long term (current) use of insulin; Z79.899 Other long term (current) drug therapy
CPT/HCPCS: 36415; 80053; 81001; 82948; 84484; 85025; 99285; J1815

== ENCOUNTER 2023-01-16 08:51 | Day surgery (SDC) | payer MEDICARE, MEDICAID ==
[2023-01-15 10:28] LABS: BASOPHILS % (AUTO) 0.3 % (0-1); EOSINOPHILS # (AUTO) 0.1 X10'3 (0-0.9); EOSINOPHILS % (AUTO) 3.9 % (0-6); HEMATOCRIT 42.2 % (35.0-45.0); HEMOGLOBIN 13.9 g/dl (12.0-16.0); LYMPHOCYTES # (AUTO) 0.8 X10'3 (1.1-4.8); LYMPHOCYTES % (AUTO) 22.8 % (21-51); MEAN CORPUSCULAR HEMOGLOBIN 29.2 PG (27.0-31.0); MEAN CORPUSCULAR HGB CONC 32.8 g/dL (33.0-36.5); MEAN CORPUSCULAR VOLUME 88.8 FL (78-98); MEAN PLATELET VOLUME 8.8 FL (7.4-10.4); MONOCYTES # (AUTO) 0.2 X10'3 (0-0.9); MONOCYTES % (AUTO) 6.7 % (2-12); NEUTROPHILS # (AUTO) 2.2 X10'3 (1.8-7.7); NEUTROPHILS % (AUTO) 66.3 % (42-75); PLATELET COUNT 116 X10'3 (140-440); RED BLOOD COUNT 4.75 X10'6 (4.20-5.60); RED CELL DISTRIBUTION WIDTH 17.4 % (11.5-14.5); WHITE BLOOD COUNT 3.3 X10'3 (4.5-11.0)
[2023-01-15 10:34] LABS: ALBUMIN 3.8 G/DL (3.4-5.0); ANION GAP 9 (8-16); BLOOD UREA NITROGEN 34 MG/DL (7-18); BUN/CREATININE RATIO 23.3 (10.0-20.0); CHLORIDE 104 MMOL/L (99-107); CREATININE 1.46 MG/DL (0.40-0.90); GLUCOSE 201 MG/DL (70-104); POTASSIUM 3.9 MMOL/L (3.5-5.1); SODIUM 142 MMOL/L (135-145); TOTAL CARBON DIOXIDE 28.6 MMOL/L (24-32); eGFR 35 ML/MIN
[2023-01-15 10:38] LABS: APTT 29 SECONDS (22-32)
[2023-01-16] VITALS (11 sets, daily range): BP systolic 113–151; BP diastolic 34–89
[~2023-01-16] VITALS: Ht 144.8 cm; Wt 50.4 kg
[~2023-01-16 08:51] MED LIST changes: +POTA-218 PO; -POTA10TA PO
[2023-01-16] MEDS ORDERED: DULA0.75 SUBCUT (09:34)
[2023-01-16] MEDS ORDERED: CLOP75TA34 PO (09:34)
[2023-01-16] MEDS ORDERED: ASPI-1264 PO (09:44)
[2023-01-16] MEDS ORDERED: ATOR40TA72 PO (09:44)
[2023-01-16] MEDS ORDERED: OSC500T PO (09:44)
[2023-01-16] MEDS ORDERED: iohexol 350MG/ML 100ml bottle IV ONE (11:04)
[2023-01-16] MEDS ORDERED: nitroGLYCERIN-Tridil 50MG/D5W 250 ML IV ONE (11:04)
[2023-01-16] MEDS ORDERED: iohexol 350 MG/ML 50ML vial IV ONE (11:04)
[2023-01-16] MEDS ORDERED: LIDOcaine 1% (10mg/ml) 2ml vial ONE (11:04)
[2023-01-16] MEDS ORDERED: heparin 1,000unit/ml 10ml vial 10 ML ONE (11:04)
[2023-01-16] MEDS ORDERED: diphenhydrAMINE 25mg capsule PO PRN (11:05)
[2023-01-16] MEDS ORDERED: fentaNYL/PF 50MCG/1 ML 2ML syringe ONE (11:05)
[2023-01-16] MEDS ORDERED: verapamil 2.5 mg/ml inj IV ONE (11:05)
[2023-01-16] MEDS ORDERED: midazolam 1 mg/ML 2ml injection ONE (11:05)
[2023-01-16] MEDS ORDERED: LORazepam 0.5 MG tablet PO PRN (11:05)
[2023-01-16] MEDS ORDERED: normal saline 1,000 ML IV SCH (11:05)
[2023-01-16] MEDS ORDERED: acetylcysteine 200 MG/ml 4ml vial PO PRN (11:08)
[2023-01-16] MEDS ORDERED: SODIUM BICARB 150mEq/D5W 1L 999 ML IV SCH ×4 (11:10→11:11)
[2023-01-16] MEDS ORDERED: sodium bicarbonate 1meq/ml inj 150 ML in dextrose 5%-water 1,000 ML IV SCH (11:12)
[2023-01-16] MEDS ORDERED: LIDOcaine 1% (10mg/ml)w/preservative inj. 20ml MDV ONE (11:53)
--- NOTE | 2023-01-16 15:30 | NUR ---
Newberry catheter placed. 100 mL of dark madhu urine collected.
--- NOTE | 2023-01-16 17:45 | NUR ---
Newberry catheter discontinued. Patient denies pain or bladder fullness.
== END 2023-01-16 18:25 | disposition home or self-care (01) ==
LOC: SSTAY O 08:51
PROVIDERS: ATTEND Internal Medicine Cardiovascular Disease
DX: I25.810 Atherosclerosis of coronary artery bypass graft(s) without angina pectoris (principal); I42.9 Cardiomyopathy, unspecified; I08.3 Combined rheumatic disorders of mitral, aortic and tricuspid valves; I27.20 Pulmonary hypertension, unspecified; F41.9 Anxiety disorder, unspecified; E11.9 Type 2 diabetes mellitus without complications; I49.5 Sick sinus syndrome; I10 Essential (primary) hypertension; E78.5 Hyperlipidemia, unspecified; I73.9 Peripheral vascular disease, unspecified; Z95.5 Presence of coronary angioplasty implant and graft; Z95.0 Presence of cardiac pacemaker; Z89.421 Acquired absence of other right toe(s); Z89.511 Acquired absence of right leg below knee; Z79.01 Long term (current) use of anticoagulants; Z79.899 Other long term (current) drug therapy; Z79.82 Long term (current) use of aspirin
CPT/HCPCS: 76937; 80048; 82948; 85025; 85610; 85730; 93005; 93459; 99152; 99153; J1644; J2250; J3010; J3490; J7030; Q0163; Q9967; A4314; A6258; A6449; C1725; C1894

== ENCOUNTER 2024-01-25 06:07 | Emergency (ER) | payer MEDICARE, MEDICAID ==
[~2024-01-25] VITALS: Ht 144.8 cm; Wt 51.4 kg
[~2024-01-25 06:07] MED LIST changes: -ASCO-134 PO; +ASPI-1264 PO; -ASPI-611 PO; -ATOR40TA71 PO; +ATOR40TA72 PO; -CLOP75TA15 PO; +CLOP75TA34 PO; -DOCU100C40 PO; +DULA0.75 SUBCUT; -GABA-530 PO; -HYDR-3972 PO; -INSU100I29 SQ; -INSU100I57 SQ; -LACT1CAP26 PO; -MULT-1074 PO; +OSC500T PO
[2024-01-25 06:14] VITALS: TEMP 97.7
[2024-01-25] MEDS: normal saline 1000ML IV soln IVB ONE (06:39)
[2024-01-25 07:04] LABS: ALBUMIN 3.8 G/DL (3.4-5.0); ANION GAP 10 (8-16); BLOOD UREA NITROGEN 42 MG/DL (7-18); BUN/CREATININE RATIO 24.3 (10.0-20.0); CALCIUM 9.3 MG/DL (8.5-10.1); CHLORIDE 101 MMOL/L (99-107); CREATININE 1.73 MG/DL (0.40-0.90); POTASSIUM 4.2 MMOL/L (3.5-5.1); SODIUM 137 MMOL/L (135-145); TOTAL CARBON DIOXIDE 25.9 MMOL/L (24-32); eCRCL 18 ML/MIN; eGFR 29 ML/MIN
[2024-01-25 07:06] LABS: BILIRUBIN,URINE NEGATIVE (Neg); CLARITY,URINE CLOUDY (Clear); COLOR,URINE STRAW (Yellow); GLUCOSE, URINE >=1000 mg/dl (Neg); KETONES,URINE NEGATIVE (Neg); LEUKOCYTE ESTERASE ,URINE TRACE (Neg); NITRITES, URINE POSITIVE (Neg); OCCULT BLOOD,URINE TRACE-INTACT (Neg); PH,URINE 6.5 (4.8-8.0); PROTEIN,URINE TRACE mg/dl (Neg); UROBILINOGEN,URINE 0.2 E.U/dL (0.2-1.0)
[2024-01-25 07:08] LABS: BASOPHILS # (AUTO) 0.1 X10'3 (0-0.2); BASOPHILS % (AUTO) 0.9 % (0-1); EOSINOPHILS # (AUTO) 0.2 X10'3 (0-0.9); EOSINOPHILS % (AUTO) 3.6 % (0-6); HEMATOCRIT 42.1 % (35.0-45.0); HEMOGLOBIN 14.4 g/dl (12.0-16.0); LYMPHOCYTES # (AUTO) 1.1 X10'3 (1.1-4.8); LYMPHOCYTES % (AUTO) 18.9 % (21-51); MEAN CORPUSCULAR HEMOGLOBIN 31.9 PG (27.0-31.0); MEAN CORPUSCULAR HGB CONC 34.1 g/dL (33.0-36.5); MEAN CORPUSCULAR VOLUME 93.8 FL (78-98); MEAN PLATELET VOLUME 8.5 FL (7.4-10.4); MONOCYTES # (AUTO) 0.5 X10'3 (0-0.9); MONOCYTES % (AUTO) 8.7 % (2-12); NEUTROPHILS # (AUTO) 4.1 X10'3 (1.8-7.7); NEUTROPHILS % (AUTO) 67.9 % (42-75); PLATELET COUNT 190 X10'3 (140-440); RED BLOOD COUNT 4.49 X10'6 (4.20-5.60)
[2024-01-25 07:13] LABS: UA COLLECTION TYPE CLN CATCH MIDSTREAM
[2024-01-25 07:14] LABS: GLUCOSE 450 MG/DL (70-104)
[2024-01-25 07:17] LABS: BACTERIA,URINE 4+ /HPF (Neg); MUCUS STRANDS NONE SEEN /LPF (Neg); RBC,URINE 0-2 /HPF (0-2); SQUAMOUS EPITHELIAL CELL,UR FEW /LPF (FEW); WBC CLUMPS,URINE MANY /HPF (NEGATIVE); WBC,URINE TNTC /HPF (0-4)
[2024-01-25] MEDS: CefTRIAXone/D5W-Rocephin 1gm 50 ML IV ONE (07:42)
[2024-01-25] MEDS: insulin regular, human 10 units/0.1 ml syringe IV ONE (07:49)
[2024-01-25] MEDS ORDERED: CEPH-585 PO (08:10)
[2024-01-25 08:43] VITALS: BP 139/56; PULSE 60; RESP 15; O2SAT 99
== END 2024-01-25 08:50 | disposition home or self-care (01) ==
LOC: ER 06:07
DX: N39.0 Urinary tract infection, site not specified (principal); I25.10 Atherosclerotic heart disease of native coronary artery without angina pectoris; I12.9 Hypertensive chronic kidney disease with stage 1 through stage 4 chronic kidney disease, or unspecified chronic kidney disease; E11.22 Type 2 diabetes mellitus with diabetic chronic kidney disease; E11.65 Type 2 diabetes mellitus with hyperglycemia; N18.9 Chronic kidney disease, unspecified; Z88.0 Allergy status to penicillin; Z79.82 Long term (current) use of aspirin; Z79.899 Other long term (current) drug therapy
CPT/HCPCS: 36415; 80048; 81001; 82948; 85025; 87077; 87088; 87186; 96361; 96365; 96375; 99284; J0696; J1815; J7030; J7050

== ENCOUNTER 2024-05-11 08:21 | Outpatient (CLI) | payer MEDICARE, MEDICAID ==
[2024-05-11 09:18] LABS: ALBUMIN 3.7 G/DL (3.4-5.0); ANION GAP 4 (8-16); BLOOD UREA NITROGEN 32 MG/DL (7-18); CALCIUM 9.5 MG/DL (8.5-10.1); CHLORIDE 100 MMOL/L (99-107); CREATININE 1.39 MG/DL (0.40-0.90); GLUCOSE 86 MG/DL (70-104); PHOSPHORUS 3.3 MG/DL (2.3-4.5); POTASSIUM 3.8 MMOL/L (3.5-5.1); SODIUM 135 MMOL/L (135-145); TOTAL CARBON DIOXIDE 31.2 MMOL/L (24-32); eGFR 37 ML/MIN
== END 2024-05-11 23:59 | disposition home or self-care (01) ==
LOC: RAD 08:21
PROVIDERS: ATTEND Internal Medicine
DX: N18.4 Chronic kidney disease, stage 4 (severe) (principal)
CPT/HCPCS: 36415; 80069

== ENCOUNTER 2024-09-13 14:41 | Emergency (ER) | payer MEDICARE, MEDICAID ==
[~2024-09-13] VITALS: Ht 144.8 cm; Wt 60.5 kg
[2024-09-13 15:00] VITALS: TEMP 97.9
[2024-09-13] MEDS ORDERED: GABA-530 (16:09)
[2024-09-13] MEDS ORDERED: INSU100I29 SQ (16:09)
[2024-09-13] MEDS ORDERED: DAPA10TA (16:09)
[2024-09-13] MEDS: HYDROcodone/acetaminophen 5mg/325mg tablet PO ONE (16:15)
[2024-09-13 16:18] LABS: BASOPHILS # (AUTO) 0.1 X10'3 (0-0.2); BASOPHILS % (AUTO) 0.7 % (0-1); EOSINOPHILS # (AUTO) 0.4 X10'3 (0-0.9); EOSINOPHILS % (AUTO) 4.4 % (0-6); HEMATOCRIT 44.2 % (35.0-45.0); HEMOGLOBIN 14.7 g/dl (12.0-16.0); LYMPHOCYTES # (AUTO) 1.3 X10'3 (1.1-4.8); MEAN CORPUSCULAR HGB CONC 33.3 g/dL (33.0-36.5); MEAN CORPUSCULAR VOLUME 90.2 FL (78-98); MEAN PLATELET VOLUME 8.1 FL (7.4-10.4); MONOCYTES # (AUTO) 0.7 X10'3 (0-0.9); NEUTROPHILS # (AUTO) 7.4 X10'3 (1.8-7.7); NEUTROPHILS % (AUTO) 74.9 % (42-75); PLATELET COUNT 286 X10'3 (140-440); RED BLOOD COUNT 4.91 X10'6 (4.20-5.60); RED CELL DISTRIBUTION WIDTH 17.3 % (11.5-14.5); WHITE BLOOD COUNT 9.9 X10'3 (4.5-11.0)
[2024-09-13 16:21] LABS: CLARITY,URINE TURBID (Clear); COLOR,URINE RED (Yellow); UA COLLECTION TYPE OTHER
[2024-09-13 16:35] LABS: ALANINE AMINOTRANSFERASE 48 U/L (12-78); ALBUMIN 3.7 G/DL (3.4-5.0); ALBUMIN/GLOBULIN RATIO 0.9 (1.1-1.5); ALKALINE PHOSPHATASE 407 IU/L (46-116); ANION GAP 10 (8-16); ASPARTATE AMINO TRANSFERASE 45 U/L (10-37); BILIRUBIN,TOTAL 0.8 MG/DL (0.1-1.0); BLOOD UREA NITROGEN 30 MG/DL (7-18); CALCIUM 10.4 MG/DL (8.5-10.1); CHLORIDE 107 MMOL/L (99-107); CREATININE 1.25 MG/DL (0.40-0.90); GLUCOSE 79 MG/DL (70-104); SODIUM 141 MMOL/L (135-145); TOTAL CARBON DIOXIDE 24.2 MMOL/L (24-32); TOTAL PROTEIN 7.7 G/DL (6.4-8.2); eCRCL 24 ML/MIN; eGFR 42 ML/MIN
[2024-09-13 16:36] LABS: BACTERIA,URINE 1+ /HPF (Neg); MUCUS STRANDS NONE SEEN /LPF (Neg); RBC,URINE TNTC /HPF (0-2); SQUAMOUS EPITHELIAL CELL,UR NONE SEEN /LPF (FEW); TRANSITIONAL EPI CELLS,URINE FEW /HPF; WBC,URINE 0-4 /HPF (0-4)
[2024-09-13 16:40] LABS: POTASSIUM 4.8 MMOL/L (3.5-5.1)
[2024-09-13] MEDS ORDERED: CEFU250T95 PO (17:18)
[2024-09-13] MEDS: normal saline 1000ML IV soln IVB ONE (17:19)
[2024-09-13] MEDS: CefTRIAXone/D5W-Rocephin 1gm 50 ML IV ONE (17:40)
[2024-09-13 20:10] VITALS: BP 150/77; PULSE 69; RESP 21; O2SAT 98
== END 2024-09-13 20:50 | disposition home or self-care (01) ==
LOC: ER 14:42
DX: N39.0 Urinary tract infection, site not specified (principal); R33.9 Retention of urine, unspecified; N18.9 Chronic kidney disease, unspecified; I25.10 Atherosclerotic heart disease of native coronary artery without angina pectoris; E78.00 Pure hypercholesterolemia, unspecified; I12.9 Hypertensive chronic kidney disease with stage 1 through stage 4 chronic kidney disease, or unspecified chronic kidney disease; Z95.0 Presence of cardiac pacemaker; E11.22 Type 2 diabetes mellitus with diabetic chronic kidney disease; Z89.511 Acquired absence of right leg below knee; Z88.0 Allergy status to penicillin; Z88.8 Allergy status to other drugs, medicaments and biological substances; Z95.1 Presence of aortocoronary bypass graft; Z79.4 Long term (current) use of insulin; Z79.82 Long term (current) use of aspirin
CPT/HCPCS: 36415; 51702; 74176; 80053; 81001; 82948; 84145; 85025; 96365; 99285; A4314; A4346; A4355; A4358; C1758; J0696; J7030

== ENCOUNTER 2024-09-30 14:44 | Emergency (ER) | payer MEDICARE, MEDICAID ==
[~2024-09-30] VITALS: Ht 144.8 cm; Wt 60.0 kg
[~2024-09-30 14:44] MED LIST changes: +DAPA10TA; +GABA-530; +INSU100I29 SQ
[2024-09-30 16:22] VITALS: TEMP 98.2
[2024-09-30 17:53] LABS: CLARITY,URINE Cloudy (Clear); COLOR,URINE RED (Yellow); UA COLLECTION TYPE FOLEY CATH
[2024-09-30 17:58] LABS: BACTERIA,URINE 2+ /HPF (Neg); SQUAMOUS EPITHELIAL CELL,UR NONE SEEN /LPF (FEW); WBC,URINE TNTC /HPF (0-4); YEAST MODERATE /HPF (NEGATIVE)
[2024-09-30] MEDS: cephalexin 250mg capsule PO ONE (19:13)
[2024-09-30] MEDS: normal saline 1000ml 1,000 ML IV ONE ×2 (19:34→20:28)
[2024-09-30 19:38] LABS: BASOPHILS # (AUTO) 0.1 X10'3 (0-0.2); BASOPHILS % (AUTO) 0.6 % (0-1); EOSINOPHILS # (AUTO) 0.4 X10'3 (0-0.9); EOSINOPHILS % (AUTO) 3.3 % (0-6); HEMATOCRIT 38.1 % (35.0-45.0); HEMOGLOBIN 12.7 g/dl (12.0-16.0); LYMPHOCYTES # (AUTO) 1.2 X10'3 (1.1-4.8); LYMPHOCYTES % (AUTO) 8.9 % (21-51); MEAN CORPUSCULAR HEMOGLOBIN 30.1 PG (27.0-31.0); MEAN CORPUSCULAR HGB CONC 33.3 g/dL (33.0-36.5); MEAN CORPUSCULAR VOLUME 90.4 FL (78-98); MEAN PLATELET VOLUME 8.1 FL (7.4-10.4); MONOCYTES # (AUTO) 0.8 X10'3 (0-0.9); NEUTROPHILS # (AUTO) 10.6 X10'3 (1.8-7.7); NEUTROPHILS % (AUTO) 81.2 % (42-75); PLATELET COUNT 252 X10'3 (140-440); RED BLOOD COUNT 4.21 X10'6 (4.20-5.60); RED CELL DISTRIBUTION WIDTH 17.6 % (11.5-14.5)
[2024-09-30 19:43] LABS: BILIRUBIN,URINE NEGATIVE (Neg); CLARITY,URINE TURBID (Clear); COLOR,URINE YELLOW (Yellow); GLUCOSE, URINE NEGATIVE (Neg); KETONES,URINE NEGATIVE (Neg); LEUKOCYTE ESTERASE ,URINE LARGE (Neg); NITRITES, URINE NEGATIVE (Neg); OCCULT BLOOD,URINE LARGE (Neg); PH,URINE 5.5 (4.8-8.0); PROTEIN,URINE 100 mg/dl (Neg); UROBILINOGEN,URINE 0.2 E.U/dL (0.2-1.0)
[2024-09-30 19:52] LABS: BACTERIA,URINE 4+ /HPF (Neg); RBC,URINE 20-50 /HPF (0-2); SQUAMOUS EPITHELIAL CELL,UR FEW /LPF (FEW); UA COLLECTION TYPE FOLEY CATH; WBC,URINE TNTC /HPF (0-4)
[2024-09-30 19:58] LABS: ALANINE AMINOTRANSFERASE 20 U/L (12-78); ALBUMIN 3.1 G/DL (3.4-5.0); ALBUMIN/GLOBULIN RATIO 0.8 (1.1-1.5); ALKALINE PHOSPHATASE 188 IU/L (46-116); ASPARTATE AMINO TRANSFERASE 25 U/L (10-37); BLOOD UREA NITROGEN 13 MG/DL (7-18); BUN/CREATININE RATIO 11.8 (10.0-20.0); CALCIUM 9.8 MG/DL (8.5-10.1); GLUCOSE 123 MG/DL (70-104); LIPASE 17 U/L (16-77); POTASSIUM 4.5 MMOL/L (3.5-5.1); SODIUM 135 MMOL/L (135-145); eCRCL 28 ML/MIN; eGFR 49 ML/MIN
[2024-09-30 20:04] LABS: ANION GAP 9 (8-16); CHLORIDE 99 MMOL/L (99-107)
[2024-09-30] MEDS ORDERED: CEPH-585 PO (21:45)
[2024-09-30] MEDS: CefTRIAXone/D5W-Rocephin 1gm 50 ML IV ONE (21:52)
[2024-10-01 05:03] VITALS: BP 163/66; PULSE 61; RESP 18; O2SAT 98
== END 2024-10-01 05:07 | disposition home or self-care (01) ==
LOC: ER 14:45
DX: N39.0 Urinary tract infection, site not specified (principal); N83.209 Unspecified ovarian cyst, unspecified side; E11.22 Type 2 diabetes mellitus with diabetic chronic kidney disease; E78.00 Pure hypercholesterolemia, unspecified; I13.10 Hypertensive heart and chronic kidney disease without heart failure, with stage 1 through stage 4 chronic kidney disease, or unspecified chronic kidney disease; N18.9 Chronic kidney disease, unspecified; Z88.0 Allergy status to penicillin; Z89.511 Acquired absence of right leg below knee; Z95.0 Presence of cardiac pacemaker; Z95.1 Presence of aortocoronary bypass graft; Z88.8 Allergy status to other drugs, medicaments and biological substances; Z79.82 Long term (current) use of aspirin
CPT/HCPCS: 36415; 51702; 51798; 76856; 80053; 81001; 82948; 83690; 84145; 85025; 87088; 96361; 96365; 99285; A4314; A4358; A5200; J0696; J7030

== ENCOUNTER 2024-10-03 07:33 | Emergency (ER) | payer MEDICARE, MEDICAID ==
[~2024-10-03] VITALS: Ht 144.8 cm; Wt 56.1 kg
[~2024-10-03 07:33] MED LIST changes: +CEPH-585 PO
[2024-10-03 08:35] VITALS: BP 131/49; PULSE 60; RESP 14; TEMP 97.7; O2SAT 100
== END 2024-10-03 08:40 | disposition home or self-care (01) ==
LOC: ER 07:33
DX: T83.091A Other mechanical complication of indwelling urethral catheter, initial encounter (principal); E11.22 Type 2 diabetes mellitus with diabetic chronic kidney disease; I13.10 Hypertensive heart and chronic kidney disease without heart failure, with stage 1 through stage 4 chronic kidney disease, or unspecified chronic kidney disease; I25.10 Atherosclerotic heart disease of native coronary artery without angina pectoris; N18.9 Chronic kidney disease, unspecified; E78.00 Pure hypercholesterolemia, unspecified; Z88.0 Allergy status to penicillin; Z95.0 Presence of cardiac pacemaker; Z98.890 Other specified postprocedural states; Y92.89 Other specified places as the place of occurrence of the external cause
CPT/HCPCS: 99281